=== PATIENT | female | born 1925 | race Caucasian/White ===

== ENCOUNTER 2016-10-12 18:01 | Inpatient (IN) | payer MEDICARE, BC ==
[~2016-10-12] VITALS: Ht 165.1 cm; Wt 61.2 kg
[~2016-10-12 18:01] MED LIST: ATEN-102 PO; CELE100; LISI-363 PO; SIMV20 PO; TAB-TAB PO
[2016-10-12 18:09] VITALS: BP 151/64; PULSE 75; RESP 16; TEMP 98.6; O2SAT 97
[2016-10-12] MEDS ORDERED: SIMV10TA PO (18:15)
[2016-10-12] MEDS ORDERED: LISI-515 PO (18:15)
[2016-10-12] MEDS ORDERED: ONDANSETRON HCL 4 MG/2 ML VIAL IV PUSH ONE (18:15)
[2016-10-12] MEDS ORDERED: ATEN50TA PO (18:15)
[2016-10-12] MEDS ORDERED: HYDR25TA5 PO (18:15)
[2016-10-12] MEDS ORDERED: MELO-1 PO (18:15)
[2016-10-12] MEDS ORDERED: MORPHINE SULFATE 4 MG/ML INJ IV PUSH ONE (18:15)
--- NOTE | 2016-10-12 18:21 | PD ---
HPI Chief Complaint: Pain: Acute or Chronic Time Seen by Provider: 18:11 Travel History International Travel<30 days: No Contact w/Intl Traveler<30days: No Traveled to known affect area: No History of Present Illness HPI The patient is a 89-year-old female who presents to the emergency department via EMS for back pain. The patient complains of mid to lower midline pain for the last 3 days that is worse at night, when she is lying supine, and when she initially stands upright. The pain gets slightly better throughout the day, however, is persistent. The pain does not radiate down the legs. She does complain of mild constipation last 2 days but denies any nausea , vomiting, or diarrhea. The patient denies any dysuria or difficulty urinating. She denies any history of compression fractures or recent trauma. She denies any dysuria, frequency, or urgency. Symptoms are mild to moderate, slightly worse with sitting down and lying down, and minimally improved with activity. The patient has not tried any [id number] pain medications prior to arrival. [facility] Past Medical History Arthritis: Yes High Cholesterol: Yes Diminished Hearing: No Hypertension: Yes Immunizations Current: No Tetanus Vaccination: > 5 Years Influenza Vaccination: No Past Surgical History Hysterectomy: Yes (1975) Social History Alcohol Use: No Tobacco Use: No Substance Use: No Allergies-Medications (Allergen,Severity, Reaction): Coded Allergies: Penicillin (Verified Allergy, Intermediate, Rash, 10/12/16) Reported Meds & Prescriptions Reported Meds & Active Scripts Active Reported Hydrochlorothiazide 25 Mg Tab 25 Mg PO DAILY Atenolol 50 Mg Tab 50 Mg PO DAILY Lisinopril 20 Mg Tab 20 Mg PO DAILY Meloxicam 15 Mg Tab 15 Mg PO DAILY Simvastatin 10 Mg Tab 10 Mg PO DAILY Review of Systems Except as stated in HPI: all other systems reviewed are Neg General / Constitutional: No: Fever Cardiovascular: No: Chest Pain or Discomfort Respiratory: No: Shortness of Breath Gastrointestinal: No: Nausea, Vomiting, Abdominal Pain Genitourinary: No: Dysuria, Incontinence Musculoskeletal: Positive: Pain Neurologic: No: Paresthesia, Sensory Disturbance Physical Exam Narrative GENERAL: Awake, alert, pleasant 89-year-old female who appears her stated age and is in no acute respiratory distress. SKIN: Focused skin assessment warm/dry. HEAD: Atraumatic. Normocephalic. EYES: No injection or drainage. ENT: No nasal bleeding or discharge. Mucous membranes pink and moist. NECK: Trachea midline. No JVD. CARDIOVASCULAR: Regular rate and rhythm. No murmur appreciated. RESPIRATORY: No accessory muscle use. Clear to auscultation. Breath sounds equal bilaterally. GASTROINTESTINAL: Abdomen soft, non-tender, nondistended. No rebound tenderness. No guarding or rigidity. Back: Mild tenderness in the lower thoracic and superior lumbar region. Mild kyphosis. No CVA tenderness. MUSCULOSKELETAL: No obvious deformities. No clubbing. No cyanosis. No edema. Positive dorsalis pedal pulses bilateral. Plantar flexion and dorsiflexion are 5 out of 5. Extension of knees and flexion of the hips bilaterals 4+5. NEUROLOGICAL: Awake and alert. No obvious cranial nerve deficits. Motor grossly within normal limits. Normal speech. Sensation is intact to the lower extremities to soft touch. PSYCHIATRIC: Appropriate mood and affect; insight and judgment normal. Data Data Last Documented VS Vital Signs Date Time Temp Pulse Resp B/P Pulse Ox O2 Delivery O2 Flow Rate FiO2 10/12/16 21:30 63 16 127/61 95 Room Air 10/12/16 18:09 98.6 Orders Complete Blood Count With Diff (10/12/16 18:11) Comprehensive Metabolic Panel (10/12/16 18:11) Urinalysis - C+S If Indicated (10/12/16 18:11) Morphine Inj (Morphine Inj) (10/12/16 18:15) Ondansetron Inj (Zofran Inj) (10/12/16 18:15) Ct Lumb Spine W/O Contrast (10/12/16 ) Ct Thor Spine W/O Contrast (10/12/16 ) TLSO (10/12/16 ) Sodium Chlor 0.9% 250 Ml Inj (Ns 250 Ml (10/12/16 20:15) Acetaminophen (Tylenol) (10/12/16 20:15) Brace Lso-Orthosis (10/12/16 ) Brace Thoracic Ext (10/12/16 ) Place In Observation (10/12/16 ) Vital Signs (Adult) Q4H (10/12/16 21:30) Activity Oob With Assistance (10/12/16 21:30) Diet Regular Basic (10/13/16 Breakfast) Sodium Chloride 0.9% Flush (Ns Flush) (10/12/16 21:30) Sodium Chloride 0.9% Flush (Ns Flush) (10/13/16 09:00) Comprehensive Metabolic Panel (10/13/16 06:00) Complete Blood Count With Diff (10/13/16 06:00) Pt Request For Service (10/12/16 21:30) Case Management Consult (10/12/16 21:30) Scd Bilateral/Knee High DAVE.BID (10/12/16 21:30) Cj Bilateral/Knee High DAVE.QSHIFT (10/12/16 21:30) Acetamin-Hydrocod 325-5 Mg ([place] 5-325 (10/12/16 22:00) Morphine Inj (Morphine Inj) (10/12/16 21:30) Docusate Sodium-Senna (Aylin-Colace) (10/13/16 09:00) Magnesium Hydroxide Liq (Milk Of Magnesi (10/12/16 21:30) Sennosides (Senokot) (10/12/16 21:30) Bisacodyl Supp (Dulcolax Supp) (10/12/16 21:30) Lactulose Liq (Lactulose Liq) (10/12/16 21:30) Atenolol (Tenormin) (10/13/16 09:00) Hydrochlorothiazide (Hydrodiuril) (10/13/16 09:00) Lisinopril (Prinivil) (10/13/16 09:00) Pravastatin (Pravachol) (10/13/16 09:00) Admit Order (Ed Use Only) (10/12/16 ) ^ Saline Lock (10/12/16 21:32) Resp Oxygen Navid C Titrat 1-4 L (10/12/16 ) Notify Dr: Other (10/12/16 21:32) Sodium Chloride 0.9% Flush (Ns Flush) (10/13/16 09:00) Sodium Chloride 0.9% Flush (Ns Flush) (10/12/16 21:45) Ondansetron Inj (Zofran Inj) (10/13/16 00:00) Acetaminophen (Tylenol) (10/13/16 02:00) Labs Laboratory Tests Test 10/12/16 10/12/16 19:00 19:37 White Blood Count 9.2 TH/MM3 Red Blood Count 4.33 MIL/MM3 Hemoglobin 12.1 GM/DL Hematocrit 36.0 % Mean Corpuscular Volume 83.2 FL Mean Corpuscular Hemoglobin 27.9 PG Mean Corpuscular Hemoglobin 33.5 % Concent Red Cell Distribution Width 14.4 % Platelet Count 273 TH/MM3 Mean Platelet Volume 8.0 FL Neutrophils (%) (Auto) 79.5 % Lymphocytes (%) (Auto) 11.8 % Monocytes (%) (Auto) 6.2 % Eosinophils (%) (Auto) 0.6 % Basophils (%) (Auto) 1.9 % Neutrophils # (Auto) 7.2 TH/MM3 Lymphocytes # (Auto) 1.1 TH/MM3 Monocytes # (Auto) 0.6 TH/MM3 Eosinophils # (Auto) 0.1 TH/MM3 Basophils # (Auto) 0.2 TH/MM3 CBC Comment DIFF FINAL Differential Comment Sodium Level 135 MEQ/L Potassium Level 4.5 MEQ/L Chloride Level 99 MEQ/L Carbon Dioxide Level 30.0 MEQ/L Anion Gap 6 MEQ/L Blood Urea Nitrogen 39 MG/DL Creatinine 0.86 MG/DL Estimat Glomerular Filtration 62 ML/MIN Rate Random Glucose 114 MG/DL Calcium Level 8.9 MG/DL Total Bilirubin 0.5 MG/DL Aspartate Amino Transf 28 U/L (AST/SGOT) Alanine Aminotransferase 23 U/L (ALT/SGPT) Alkaline Phosphatase 67 U/L Total Protein 7.0 GM/DL Albumin 3.1 GM/DL Urine Color YELLOW Urine Turbidity MOD Urine pH 6.0 Urine Specific [place] 1.017 Urine Protein NEG mg/dL Urine Glucose (UA) 250 mg/dL Urine Ketones TRACE mg/dL Urine Occult Blood NEG Urine Nitrite NEG Urine Bilirubin NEG Urine Leukocyte Esterase NEG Urine Squamous Epithelial > 8 /hpf Cells Urine Amorphous Sediment MOD Urine Bacteria FEW /hpf Urine Hyaline Casts 3-5 /lpf Urine Mucus FEW /lpf Microscopic Urinalysis Comment CULT NOT INDICATED MDM Medical Decision Making Medical Screen Exam Complete: Yes Emergency Medical Condition: Yes Medical Record Reviewed: Yes Differential Diagnosis Differential diagnosis includes compression fracture, spondylolisthesis, spinal stenosis, lumbar ago, UTI, atypical pancreatitis, constipation, metastatic disease. Narrative Course IV was established, labs are drawn and sent, and the patient was placed on telemetry monitoring and continuous pulse oximetry monitoring. The patient was administered morphine and Zofran for her symptoms. UA was sent to lab. Noncontrast CT of the thoracic and lumbar spine were ordered. The patient was signed out to the oncoming physician, Dr. Gonzalez, at 7 PM. If the patient has a compression fracture she may benefit from a TLSO brace. Diagnosis Primary Impression: Back pain Qualified Code: M54.6 - Acute midline thoracic back pain Additional Impression: T12 compression fracture Condition: Stable Rob Diggs MD Oct 12, 2016 18:20
[2016-10-12 19:00] VITALS: BP 141/82; PULSE 74; RESP 16; O2SAT 92
[2016-10-12 19:08] LABS: AUTOMATED NEUTROPHIL # 7.2 TH/MM3 (1.8-7.7); BASOPHIL # 0.2 TH/MM3 (0-0.2); BASOPHIL % 1.9 % (0.0-2.0); EOSINOPHIL # 0.1 TH/MM3 (0-0.4); EOSINOPHIL % 0.6 % (0.0-4.0); HEMO FLAGS DIFF FINAL; LYMPH % 11.8 % (9.0-44.0); LYMPHOCYTE # 1.1 TH/MM3 (1.0-4.8); MEAN CELL VOLUME 83.2 FL (80.0-100.0); MEAN CORPUSCULAR HEMOGLOBIN 27.9 PG (27.0-34.0); MEAN CORPUSCULAR HGB CONC 33.5 % (32.0-36.0); MONO % 6.2 % (0.0-8.0); NEUT % 79.5 % (16.0-70.0); PLATELET COUNT 273 TH/MM3 (150-450); RED BLOOD COUNT 4.33 MIL/MM3 (4.00-5.30); RED CELL DISTRIBUTION WIDTH 14.4 % (11.6-17.2); WHITE BLOOD COUNT 9.2 TH/MM3 (4.0-11.0)
--- NOTE | 2016-10-12 19:09 | PD ---
Physical Exam Date Seen by Provider: Oct 12, 2016 Time Seen by Provider: 19:06 Narrative Accepted in transfer of care from Dr. Diggs GENERAL: Elderly female in no acute distress SKIN: Warm and dry. HEAD: Normocephalic. EYES: No scleral icterus. No injection or drainage. NECK: Supple, trachea midline. No JVD or lymphadenopathy. CARDIOVASCULAR: Regular rate and rhythm without murmurs, gallops, or rubs. RESPIRATORY: Breath sounds equal bilaterally. No accessory muscle use. GASTROINTESTINAL: Abdomen soft, non-tender, nondistended. MUSCULOSKELETAL: No cyanosis, or edema. Radial and dorsalis pedis pulses 2++= BACK: Tender to palpation in the mid back without step off; without obvious deformity. Motor BUE/BLE = 5/5 and = 5/5, respectively No CVA tenderness. Data Data Last Documented VS Vital Signs Date Time Temp Pulse Resp B/P Pulse Ox O2 Delivery O2 Flow Rate FiO2 10/12/16 19:00 16 10/12/16 19:00 74 141/82 92 Room Air 10/12/16 18:09 98.6 Orders Complete Blood Count With Diff (10/12/16 18:11) Comprehensive Metabolic Panel (10/12/16 18:11) Urinalysis - C+S If Indicated (10/12/16 18:11) Morphine Inj (Morphine Inj) (10/12/16 18:15) Ondansetron Inj (Zofran Inj) (10/12/16 18:15) Ct Lumb Spine W/O Contrast (10/12/16 ) Ct Thor Spine W/O Contrast (10/12/16 ) TLSO (10/12/16 ) Sodium Chlor 0.9% 250 Ml Inj (Ns 250 Ml (10/12/16 20:15) Acetaminophen (Tylenol) (10/12/16 20:15) Brace Lso-Orthosis (10/12/16 ) Brace Thoracic Ext (10/12/16 ) Place In Observation (10/12/16 ) Vital Signs (Adult) Q4H (10/12/16 21:30) Activity Oob With Assistance (10/12/16 21:30) Diet Regular Basic (10/13/16 Breakfast) Sodium Chloride 0.9% Flush (Ns Flush) (10/12/16 21:30) Sodium Chloride 0.9% Flush (Ns Flush) (10/13/16 09:00) Comprehensive Metabolic Panel (10/13/16 06:00) Complete Blood Count With Diff (10/13/16 06:00) Pt Request For Service (10/12/16 21:30) Case Management Consult (10/12/16 21:30) Scd Bilateral/Knee High DAVE.BID (10/12/16 21:30) Cj Bilateral/Knee High DAVE.QSHIFT (10/12/16 21:30) Acetamin-Hydrocod 325-5 Mg ([place] 5-325 (10/12/16 22:00) Morphine Inj (Morphine Inj) (10/12/16 21:30) Docusate Sodium-Senna (Aylin-Colace) (10/13/16 09:00) Magnesium Hydroxide Liq (Milk Of Magnesi (10/12/16 21:30) Sennosides (Senokot) (10/12/16 21:30) Bisacodyl Supp (Dulcolax Supp) (10/12/16 21:30) Lactulose Liq (Lactulose Liq) (10/12/16 21:30) Atenolol (Tenormin) (10/13/16 09:00) Hydrochlorothiazide (Hydrodiuril) (10/13/16 09:00) Lisinopril (Prinivil) (10/13/16 09:00) Pravastatin (Pravachol) (10/13/16 09:00) Admit Order (Ed Use Only) (10/12/16 ) ^ Saline Lock (10/12/16 21:32) Resp Oxygen Navid C Titrat 1-4 L (10/12/16 ) Notify Dr: Other (10/12/16 21:32) Sodium Chloride 0.9% Flush (Ns Flush) (10/13/16 09:00) Sodium Chloride 0.9% Flush (Ns Flush) (10/12/16 21:45) Ondansetron Inj (Zofran Inj) (10/13/16 00:00) Acetaminophen (Tylenol) (10/13/16 02:00) Labs Laboratory Tests Test 10/12/16 10/12/16 19:00 19:37 White Blood Count 9.2 TH/MM3 Red Blood Count 4.33 MIL/MM3 Hemoglobin 12.1 GM/DL Hematocrit 36.0 % Mean Corpuscular Volume 83.2 FL Mean Corpuscular Hemoglobin 27.9 PG Mean Corpuscular Hemoglobin 33.5 % Concent Red Cell Distribution Width 14.4 % Platelet Count 273 TH/MM3 Mean Platelet Volume 8.0 FL Neutrophils (%) (Auto) 79.5 % Lymphocytes (%) (Auto) 11.8 % Monocytes (%) (Auto) 6.2 % Eosinophils (%) (Auto) 0.6 % Basophils (%) (Auto) 1.9 % Neutrophils # (Auto) 7.2 TH/MM3 Lymphocytes # (Auto) 1.1 TH/MM3 Monocytes # (Auto) 0.6 TH/MM3 Eosinophils # (Auto) 0.1 TH/MM3 Basophils # (Auto) 0.2 TH/MM3 CBC Comment DIFF FINAL Differential Comment Sodium Level 135 MEQ/L Potassium Level 4.5 MEQ/L Chloride Level 99 MEQ/L Carbon Dioxide Level 30.0 MEQ/L Anion Gap 6 MEQ/L Blood Urea Nitrogen 39 MG/DL Creatinine 0.86 MG/DL Estimat Glomerular Filtration 62 ML/MIN Rate Random Glucose 114 MG/DL Calcium Level 8.9 MG/DL Total Bilirubin 0.5 MG/DL Aspartate Amino Transf 28 U/L (AST/SGOT) Alanine Aminotransferase 23 U/L (ALT/SGPT) Alkaline Phosphatase 67 U/L Total Protein 7.0 GM/DL Albumin 3.1 GM/DL Urine Color YELLOW Urine Turbidity MOD Urine pH 6.0 Urine Specific [facility] 1.017 Urine Protein NEG mg/dL Urine Glucose (UA) 250 mg/dL Urine Ketones TRACE mg/dL Urine Occult Blood NEG Urine Nitrite NEG Urine Bilirubin NEG Urine Leukocyte Esterase NEG Urine Squamous Epithelial > 8 /hpf Cells Urine Amorphous Sediment MOD Urine Bacteria FEW /hpf Urine Hyaline Casts 3-5 /lpf Urine Mucus FEW /lpf Microscopic Urinalysis Comment CULT NOT INDICATED MDM Medical Record Reviewed: Yes Supervised Visit with RACHEL: No Interpretation(s) CBC & BMP Diagram 10/12/16 19:00 Last Impressions Thoracic Spine CT 10/12/16 0000 Signed Impressions: Service Date/Time: Wednesday, October 12, 2016 18:17 - CONCLUSION: 1. Compression fracture through superior aspect of T12 without significant loss of vertebral body height. Fracture is probably subacute with some resorption at the fracture line. Prominent osteophyte at this level posteriorly results in a mild to moderate AP canal stenosis. No other fractures. Nicholas Yañez MD Lumbar Spine CT 10/12/16 0000 Signed Impressions: Service Date/Time: Wednesday, October 12, 2016 18:17 - CONCLUSION: 1. T12 fracture. See thoracic spine CT report. No lumbar spine fracture. 2. 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 Nicholas Yañez MD Vital Signs Date Time Temp Pulse Resp B/P Pulse Ox O2 Delivery O2 Flow Rate FiO2 10/12/16 19:00 16 10/12/16 19:00 74 16 141/82 92 Room Air 10/12/16 18:50 16 10/12/16 18:15 10/12/16 18:09 98.6 75 16 151/64 97 Room Air UA: contaminated specimen; cx not indicated Differential Diagnosis Accepted in transfer of care from Dr. Diggs please refer to his dictation Narrative Course Accepted in transfer of care from Dr. Diggs for follow-up of pending labs, imaging study, and patient disposition No relief of pain after morphine sulfate some decrease in O2 saturation on room air GCS 15 Patient given acetaminophen and TLSO brace ordered TLSO device placed on patient patient complains symptoms are not improved and does not like the brace and wants to have removed Case discussed with on-call medicine for admission for intractable pain without neurologic deficit; NS call placed as well re: possible candidate for kyphoplasty Patient is aware of plan for admission and is in agreement; aware plan to transfer to [facility] for NS consult re: possible kyphoplasty [facility] aware of NS rec to [facility] Physician Communication Physician Communication discussed with Dr Wilson--obs for intractable pain; subacute T12 compression fracture; NS Dr Burk [facility] ?kyphoplasty Diagnosis Primary Impression: Intractable back pain Additional Impression: T12 compression fracture Admitting Information Admitting Physician Requests: Observation Condition: Stable Shreya Gonzalez MD Oct 12, 2016 19:09
--- NOTE | 2016-10-12 19:11 | RADRPT ---
EXAM DATE/TIME: 10/12/2016 18:17 [facility] COMPARISON: No previous studies available for comparison. INDICATIONS : Back pain. No known injury. RADIATION DOSE: 22.80 CTDIvol (mGy) ; Combined studies - Thoracic Spine/Lumbar Spine MEDICAL HISTORY : Hypertension. Hypercholesterolemia. SURGICAL HISTORY : Hysterectomy. ENCOUNTER: Initial ACUITY: 3 days PAIN SCALE: 5/10 LOCATION: spine TECHNIQUE: Volumetric scanning of the thoracic spine was performed. Multiplanar reconstructions in the sagittal , coronal and oblique axial planes were performed. Using automated exposure control and adjustment o f the mA and/or kV according to patient size, radiation dose was kept as low as reasonably achievable to obtain optimal diagnostic quality images. DICOM format image data is available electronically f or review and comparison. FINDINGS: There is a fracture through superior aspect of T12 which is probably subacute with some resorption at the fracture line. There is a prominent osteophyte posteriorly at this level with a mild to moderate AP canal stenosis. No canal stenosis the remainder of the thoracic spine. Moderate degenerative valdivia ge throughout. No other thoracic spine fractures identified. Bones are osteopenic. CONCLUSION: 1. Compression fracture through superior aspect of T12 without significant loss of vertebral body hei ght. Fracture is probably subacute with some resorption at the fracture line. Prominent osteophyte at this level posteriorly results in a mild to moderate AP canal stenosis. No other fractures. Nicholas Yañez MD on October 12, 2016 at 19:05 Board Certified Radiologist. This report was verified electronically.
--- NOTE | 2016-10-12 19:13 | RADRPT ---
EXAM DATE/TIME: 10/12/2016 18:17 [facility] COMPARISON: No previous studies available for comparison. INDICATIONS : Back pain. No known injury. RADIATION DOSE: 22.80 CTDIvol (mGy) ; Combined studies - Thoracic Spine/Lumbar Spine MEDICAL HISTORY : Hypercholesterolemia. Hypertension. SURGICAL HISTORY : Hysterectomy. ENCOUNTER: Initial ACUITY: 3 days PAIN SCALE: 5/10 LOCATION: spine TECHNIQUE: Volumetric scanning of the lumbar spine was performed. Multiplanar reconstructions in the sagittal, coronal and oblique axial planes were performed. Using automated exposure control and adjustment of the mA and/or kV according to patient size, radiation dose was kept as low as reasonably achievable t o obtain optimal diagnostic quality images. DICOM format image data is available electronically for review and comparison. FINDINGS: No acute fracture the lumbar spine. There is a T12 fracture. See thoracic spine CT report. 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 Degenerati ve changes result in a moderate central stenosis at L4-5 and mild central canal stenosis at L3-4. Bon es are osteopenic. CONCLUSION: 1. T12 fracture. See thoracic spine CT report. No lumbar spine fracture. 2. 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 Mild to moderate joaquina tral canal stenosis in the lower lumbar spine as above. Nicholas Yañez MD on October 12, 2016 at 19:09 Board Certified Radiologist. This report was verified electronically.
[2016-10-12 19:17] LABS: CHLORIDE 99 MEQ/L (98-107); POTASSIUM 4.5 MEQ/L (3.5-5.1); SODIUM (NA) 135 MEQ/L (136-145)
[2016-10-12 19:20] LABS: ANION GAP 6 MEQ/L (5-15); BLOOD UREA NITROGEN 39 MG/DL (7-18)
[2016-10-12 19:23] LABS: ALT (GPT) 23 U/L (10-53); AST (GOT) 28 U/L (15-37); GLOMERULAR FILTRATION RATE 62 ML/MIN (>89)
[2016-10-12 19:25] LABS: TOTAL BILIRUBIN ADULT 0.5 MG/DL (0.2-1.0)
[2016-10-12 19:26] LABS: ALKALINE PHOSPHATASE 67 U/L (45-117)
[2016-10-12 19:46] LABS: BLOOD, URINE NEG (NEG); GLUCOSE,URINE 250 mg/dL (NEG); KETONE, URINE TRACE mg/dL (NEG); NITRITE,URINE NEG (NEG)
[2016-10-12 19:53] LABS: SQUAMOUS EPITHELIAL CELL URINE > 8 /hpf (0-5); URINE COLOR YELLOW (YELLW/STRAW)
[2016-10-12 19:54] LABS: BACTERIA, URINE FEW /hpf; MUCUS URINE FEW /lpf (OCC)
[2016-10-12 19:55] LABS: COMMENT (UR) CULT NOT INDICATED; CULTURE IF INDICATED CULT NOT INDICATED
[2016-10-12] MEDS ORDERED: ACETAMINOPHEN 500 MG CPLT PO ONE (20:15)
[2016-10-12] MEDS ORDERED: SODIUM CHLOR 0.9% 250 ML INJ 250 ML IV ONE (20:15)
[2016-10-12 21:30] VITALS: BP 127/61; PULSE 63; RESP 16; O2SAT 95
[2016-10-12] MEDS ORDERED: SODIUM CHLORIDE 0.9% FLUSH 10 ML FLUSH IV FLUSH PRN (21:30)
[2016-10-12] MEDS ORDERED: MORPHINE SULFATE 4 MG/ML INJ IV PRN (21:30)
[2016-10-12] MEDS ORDERED: SENNOSIDES 8.6 MG TAB PO PRN (21:30)
[2016-10-12] MEDS ORDERED: BISACODYL 10 MG SUPP RECTAL PRN (21:30)
[2016-10-12] MEDS ORDERED: LACTULOSE SYRUP 20 GM/30 ML CUP PO PRN (21:30)
[2016-10-12] MEDS ORDERED: MAGNESIUM HYDROXIDE SUSP 30 ML CUP PO PRN (21:30)
[2016-10-12] MEDS ORDERED: SODIUM CHLORIDE 0.9% FLUSH 10 ML FLUSH IVF PRN (21:45)
[2016-10-12] MEDS ORDERED: ACETAMINOPHEN/HYDROcodone 325 MG/5 MG TAB PO PRN (22:00)
[2016-10-12 22:18] VITALS: O2SAT 92
[2016-10-12 23:00] VITALS: BP 131/62; PULSE 62; RESP 16; O2SAT 97
[2016-10-13] VITALS (7 sets, daily range): BP systolic 117–152; BP diastolic 56–67; PULSE 58–71; RESP 16–23; TEMP 97.5–98.6; O2SAT 91–96
[2016-10-13] MEDS ORDERED: ONDANSETRON HCL 4 MG/2 ML VIAL IVP PRN
[2016-10-13] MEDS ORDERED: ACETAMINOPHEN 325 MG TAB PO PRN (02:00)
--- NOTE | 2016-10-13 04:18 | HHI.HP ---
[facility] Service [facility] Primary Care Physician Unknown Admission Diagnosis intractable pain; T12 subacute compression fx Diagnoses: Chief Complaint: back pain Travel History International Travel<30 Days: No Contact w/Intl Traveler <30 Da: No Traveled to Known Affected Are: No History of Present Illness 89 y/o female with a history of HTN, HLD and arthritis presented to the ED with complaints of back pain for the last 3 days. She states the pain is throbbing, 7 /10, in the middle of her back, worse when laying in bed or turning in bed. She states during the day when she walks the pain does ease up. Today she states the pain made it difficult to walk. No associated numbness in her lower extremities. She denies any trauma, or fall. She does take swing classes 3 days a week, but doesn't remember twisting wrong. She denies any chest pain, sob, fever, chills, rash, headaches or dizziness. Review of Systems Except as stated in HPI: all other systems reviewed are Neg Past Family Social History Past Medical History HTN HLD Arthritis Past Surgical History Hysterectomy Reported Medications Reported Meds & Active Scripts Active Reported Hydrochlorothiazide 25 Mg Tab 25 Mg PO DAILY Atenolol 50 Mg Tab 50 Mg PO DAILY Lisinopril 20 Mg Tab 20 Mg PO DAILY Meloxicam 15 Mg Tab 15 Mg PO DAILY Simvastatin 10 Mg Tab 10 Mg PO DAILY Allergies: Coded Allergies: Penicillin (Verified Allergy, Intermediate, Rash, 10/12/16) Active Ordered Medications Current Medications Medications (Trade) Dose Ordered Sig/Redd Route Start Time Stop Time Status Last Admin (NS Flush) 2 ml UNSCH PRN IV FLUSH 10/12/16 21:30 (NS Flush) 2 ml BID IV FLUSH 10/13/16 09:00 (Zofran Inj) 4 mg Q6H PRN IVP 10/13/16 00:00 (Tylenol) 650 mg Q6H PRN PO 10/13/16 02:00 ([place] 5-325 Mg) 1 tab Q4H PRN PO 10/12/16 22:00 (Morphine Inj) 2 mg Q3H PRN IV 10/12/16 21:30 (Aylin-Colace) 1 tab BID PO 10/13/16 09:00 (Milk Of Magnesia Liq) 30 ml Q12H PRN PO 10/12/16 21:30 (Senokot) 17.2 mg Q12H PRN PO 10/12/16 21:30 (Dulcolax Supp) 10 mg DAILY PRN RECTAL 10/12/16 21:30 (Lactulose Liq) 30 ml DAILY PRN PO 10/12/16 21:30 (Tenormin) 50 mg DAILY PO 10/13/16 09:00 (Hydrodiuril) 25 mg DAILY PO 10/13/16 09:00 (Prinivil) 20 mg DAILY PO 10/13/16 09:00 (Pravachol) 20 mg DAILY PO 10/13/16 09:00 Family History Patient denies any family history of heart disease or cancer. Social History Patient denies any tobacco, alcohol or illicit drug use. Physical Exam Vital Signs Vital Signs Date Time Temp Pulse Resp B/P Pulse Ox O2 Delivery O2 Flow Rate FiO2 10/13/16 02:45 97.5 71 18 145/67 93 10/13/16 01:57 60 16 117/60 95 Room Air 10/13/16 00:30 60 16 119/57 95 Room Air 10/12/16 23:00 62 16 131/62 97 Room Air 10/12/16 22:18 92 21 10/12/16 21:39 16 10/12/16 21:30 63 16 127/61 95 Room Air 10/12/16 19:00 16 10/12/16 19:00 74 16 141/82 92 Room Air 10/12/16 18:50 16 10/12/16 18:15 10/12/16 18:09 98.6 75 16 151/64 97 Room Air Physical Exam GENERAL: This is a well-nourished, pleasant lady in [facility]. SKIN: No rashes, ecchymoses or lesions. Cool and dry. HEAD: Atraumatic. Normocephalic. EYES: Pupils equal round and reactive. Extraocular motions intact. ENT: Nose without bleeding, purulent drainage or septal hematoma Airway patent. NECK: Trachea midline. No JVD or lymphadenopathy. CARDIOVASCULAR: Regular rate and rhythm without murmurs, gallops, or rubs. RESPIRATORY: Clear to auscultation. Breath sounds equal bilaterally. No wheezes , rales, or rhonchi. GASTROINTESTINAL: Abdomen soft, non-tender, nondistended. No hepato-splenomegaly , or palpable masses. No guarding. MUSCULOSKELETAL: Extremities without clubbing, cyanosis, or edema. No joint tenderness, effusion, or edema noted. No calf tenderness. NEUROLOGICAL: Awake and alert. Motor and sensory grossly within normal limits. Normal speech. Laboratory Laboratory Tests Test 10/12/16 10/12/16 19:00 19:37 White Blood Count 9.2 Red Blood Count 4.33 Hemoglobin 12.1 Hematocrit 36.0 Mean Corpuscular Volume 83.2 Mean Corpuscular Hemoglobin 27.9 Mean Corpuscular Hemoglobin 33.5 Concent Red Cell Distribution Width 14.4 Platelet Count 273 Mean Platelet Volume 8.0 Neutrophils (%) (Auto) 79.5 Lymphocytes (%) (Auto) 11.8 Monocytes (%) (Auto) 6.2 Eosinophils (%) (Auto) 0.6 Basophils (%) (Auto) 1.9 Neutrophils # (Auto) 7.2 Lymphocytes # (Auto) 1.1 Monocytes # (Auto) 0.6 Eosinophils # (Auto) 0.1 Basophils # (Auto) 0.2 CBC Comment DIFF FINAL Differential Comment Sodium Level 135 Potassium Level 4.5 Chloride Level 99 Carbon Dioxide Level 30.0 Anion Gap 6 Blood Urea Nitrogen 39 Creatinine 0.86 Estimat Glomerular Filtration 62 Rate Random Glucose 114 Calcium Level 8.9 Total Bilirubin 0.5 Aspartate Amino Transf 28 (AST/SGOT) Alanine Aminotransferase 23 (ALT/SGPT) Alkaline Phosphatase 67 Total Protein 7.0 Albumin 3.1 Urine Color YELLOW Urine Turbidity MOD Urine pH 6.0 Urine Specific [place] 1.017 Urine Protein NEG Urine Glucose (UA) 250 Urine Ketones TRACE Urine Occult Blood NEG Urine Nitrite NEG Urine Bilirubin NEG Urine Leukocyte Esterase NEG Urine Squamous Epithelial > 8 Cells Urine Amorphous Sediment MOD Urine Bacteria FEW Urine Hyaline Casts 3-5 Urine Mucus FEW Microscopic Urinalysis Comment CULT NOT INDICATED Result Diagram: 10/12/16189910/12/161899 Imaging Last Impressions Thoracic Spine CT 10/12/16 0000 Signed Impressions: Service Date/Time: Wednesday, October 12, 2016 18:17 - CONCLUSION: 1. Compression fracture through superior aspect of T12 without significant loss of vertebral body height. Fracture is probably subacute with some resorption at the fracture line. Prominent osteophyte at this level posteriorly results in a mild to moderate AP canal stenosis. No other fractures. Nicholas Yañez MD Lumbar Spine CT 10/12/16 0000 Signed Impressions: Service Date/Time: Wednesday, October 12, 2016 18:17 - CONCLUSION: 1. T12 fracture. See thoracic spine CT report. No lumbar spine fracture. 2. 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 Nicholas Yañez MD Assessment and Plan Problem List: (1) T12 compression fracture ICD Code: S22.080A Status: Acute (2) Intractable back pain ICD Code: M54.9 Status: Acute Assessment and Plan 89 y/o female with a history of HTN, HLD and arthritis presented to the ED with complaints of back pain for the last 3 days. T12 compression fracture with Intractable back pain Thoracic spine CT reviewed and shows Compression fracture through superior aspect of T12 without significant loss of vertebral body height. Fracture is probably subacute with some resorption at the fracture line. Prominent osteophyte at this level posteriorly results in a mild to moderate AP canal stenosis. No other fractures. -Consult neuro surgery, Dr Burk aware, possible Kyphoplasty -TLSO brace when out of bed or sitting up -Pain management with IV morphine and PO Wainwright HTN, chronic -Resume home medications DVT prophylaxis: SCDs Discussed Condition With Patient, and Beatrice Jack Oct 13, 2016 04:18
[2016-10-13] MEDS: SODIUM CHLORIDE 0.9% FLUSH 10 ML FLUSH IV FLUSH SCH ×2 (09:00→21:00)
[2016-10-13] MEDS ORDERED: SODIUM CHLORIDE 0.9% FLUSH 10 ML FLUSH IV FLUSH SCH (09:00)
[2016-10-13] MEDS: PRAVASTATIN SOD 20 MG TAB PO SCH (09:50)
[2016-10-13] MEDS: LISINOPRIL 20 MG TAB PO SCH (09:50)
[2016-10-13] MEDS: DOCUSATE SODIUM 50 MG/SENNA 8.6 MG TAB PO SCH ×2 (09:50→21:00)
[2016-10-13] MEDS: ATENOLOL 50 MG TAB PO SCH (09:50)
[2016-10-13] MEDS: HYDROCHLOROTHIAZIDE 25 MG TAB PO SCH (09:50)
[2016-10-13 10:37] LABS: AUTOMATED NEUTROPHIL # 6.2 TH/MM3 (1.8-7.7); BASOPHIL % 0.3 % (0.0-2.0); EOSINOPHIL # 0.1 TH/MM3 (0-0.4); EOSINOPHIL % 0.8 % (0.0-4.0); HEMATOCRIT 38.3 % (35.0-46.0); HEMO FLAGS DIFF FINAL; LYMPH % 21.2 % (9.0-44.0); LYMPHOCYTE # 1.9 TH/MM3 (1.0-4.8); MEAN CELL VOLUME 82.8 FL (80.0-100.0); MEAN CORPUSCULAR HEMOGLOBIN 28.4 PG (27.0-34.0); MEAN CORPUSCULAR HGB CONC 34.3 % (32.0-36.0); NEUT % 69.7 % (16.0-70.0); PLATELET COUNT 323 TH/MM3 (150-450); RED BLOOD COUNT 4.62 MIL/MM3 (4.00-5.30); RED CELL DISTRIBUTION WIDTH 14.8 % (11.6-17.2); WHITE BLOOD COUNT 8.9 TH/MM3 (4.0-11.0)
[2016-10-13 10:44] LABS: ALT (GPT) 24 U/L (10-53); ANION GAP 8 MEQ/L (5-15); AST (GOT) 20 U/L (15-37); BICARBONATE 29.8 MEQ/L (21.0-32.0); BLOOD UREA NITROGEN 33 MG/DL (7-18); CHLORIDE 97 MEQ/L (98-107); GLOMERULAR FILTRATION RATE 62 ML/MIN (>89); POTASSIUM 4.5 MEQ/L (3.5-5.1); SODIUM (NA) 135 MEQ/L (136-145)
[2016-10-13 10:46] LABS: ALKALINE PHOSPHATASE 78 U/L (45-117); TOTAL BILIRUBIN ADULT 0.6 MG/DL (0.2-1.0)
[2016-10-13] MEDS ORDERED: VANCOMYCIN INJ 1,000 MG in SODIUM CHLOR 0.9% 250 ML INJ 250 ML IV SCH (11:45)
--- NOTE | 2016-10-13 13:03 | PD.CONS ---
[facility] Service Neurosurgery Consult Requested By [facility] Reason for Consult T12 fracture Primary Care Physician Unknown History of Present Illness This is a 89 year old female with a history of HTN, hyperlipidemia and arthritis presented to the [place] emergency room with complaints of intractable back pain. She states that her pain is throbbing, 8-9/10, in the middle of her back, worse when laying in bed or turning in bed. She states during the day her pain gets worse and unbearable. Today she states the pain made it difficult to walk. No associated numbness in her lower extremities. She denies any trauma, or fall. She does take swing classes 3 days a week, but doesn 't remember twisting wrong. She denies any chest pain, sob, fever, chills, rash , headaches or dizziness. She denies incontinence of stool or urine the brain show a compression fracture at T12. Neurosurgical consultation was requested Physical Exam Physical Exam Vital Signs Vital Signs Date Time Temp Pulse Resp B/P Pulse Ox O2 Delivery O2 Flow Rate FiO2 10/13/16 02:45 97.5 71 18 145/67 93 10/13/16 01:57 60 16 117/60 95 Room Air 10/13/16 00:30 60 16 119/57 95 Room Air 10/12/16 23:00 62 16 131/62 97 Room Air 10/12/16 22:18 92 21 10/12/16 21:39 16 10/12/16 21:30 63 16 127/61 95 Room Air 10/12/16 19:00 16 10/12/16 19:00 74 16 141/82 92 Room Air 10/12/16 18:50 16 10/12/16 18:15 10/12/16 18:09 98.6 75 16 151/64 97 Room Air Physical Exam GENERAL: This is a well-nourished, pleasant lady in [facility]. SKIN: No rashes, ecchymoses or lesions. Cool and dry. HEAD: Atraumatic. Normocephalic. EYES: Pupils equal round and reactive. Extraocular motions intact. ENT: Nose without bleeding, purulent drainage or septal hematoma Airway patent. NECK: Trachea midline. No JVD or lymphadenopathy. CARDIOVASCULAR: Regular rate and rhythm without murmurs, gallops, or rubs. RESPIRATORY: Clear to auscultation. Breath sounds equal bilaterally. No wheezes , rales, or rhonchi. GASTROINTESTINAL: Abdomen soft, non-tender, nondistended. No hepato-splenomegaly , or palpable masses. No guarding. MUSCULOSKELETAL: Extremities without clubbing, cyanosis, or edema. No joint tenderness, effusion, or edema noted. No calf tenderness. NEUROLOGICAL: Awake and alert. Motor and sensory grossly within normal limits. Normal speech. Laboratory Laboratory Tests Test 10/12/16 10/12/16 19:00 19:37 White Blood Count 9.2 Red Blood Count 4.33 Hemoglobin 12.1 Hematocrit 36.0 Mean Corpuscular Volume 83.2 Mean Corpuscular Hemoglobin 27.9 Mean Corpuscular Hemoglobin 33.5 Concent Red Cell Distribution Width 14.4 Platelet Count 273 Mean Platelet Volume 8.0 Neutrophils (%) (Auto) 79.5 Lymphocytes (%) (Auto) 11.8 Monocytes (%) (Auto) 6.2 Eosinophils (%) (Auto) 0.6 Basophils (%) (Auto) 1.9 Neutrophils # (Auto) 7.2 Lymphocytes # (Auto) 1.1 Monocytes # (Auto) 0.6 Eosinophils # (Auto) 0.1 Basophils # (Auto) 0.2 CBC Comment DIFF FINAL Differential Comment Sodium Level 135 Potassium Level 4.5 Chloride Level 99 Carbon Dioxide Level 30.0 Anion Gap 6 Blood Urea Nitrogen 39 Creatinine 0.86 Estimat Glomerular Filtration 62 Rate Random Glucose 114 Calcium Level 8.9 Total Bilirubin 0.5 Aspartate Amino Transf 28 (AST/SGOT) Alanine Aminotransferase 23 (ALT/SGPT) Alkaline Phosphatase 67 Total Protein 7.0 Albumin 3.1 Urine Color YELLOW Urine Turbidity MOD Urine pH 6.0 Urine Specific [place] 1.017 Urine Protein NEG Urine Glucose (UA) 250 Urine Ketones TRACE Urine Occult Blood NEG Urine Nitrite NEG Urine Bilirubin NEG Urine Leukocyte Esterase NEG Urine Squamous Epithelial > 8 Cells Urine Amorphous Sediment MOD Urine Bacteria FEW Urine Hyaline Casts 3-5 Urine Mucus FEW Microscopic Urinalysis Comment CULT NOT INDICATED Result Diagram: 10/12/16 19010/12/16 190 Imaging Last Impressions Thoracic Spine CT 10/12/16 0000 Signed Impressions: Service Date/Time: Wednesday, October 12, 2016 18:17 - CONCLUSION: 1. Compression fracture through superior aspect of T12 without significant loss of vertebral body height. Fracture is probably subacute with some resorption at the fracture line. Prominent osteophyte at this level posteriorly results in a mild to moderate AP canal stenosis. No other fractures. Nicholas Yañez MD Lumbar Spine CT 10/12/16 0000 Signed Impressions: Service Date/Time: Wednesday, October 12, 2016 18:17 - CONCLUSION: 1. T12 fracture. See thoracic spine CT report. No lumbar spine fracture. 2. 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 Nicholas Yañez MD Septic Shock Reassessment Septic Shock Reassessment Assessment and Plan Assessment and Plan Problem List: (1) T12 compression fracture ICD Code: S22.080A Status: Acute (2) Intractable back pain ICD Code: M54.9 Status: Acute Review of Systems Constitutional: DENIES: Diaphoretic episodes, Fatigue, Fever, Weight gain, Weight loss, Chills, Dizziness, Change in appetite, Night Sweats Endocrine: DENIES: Abnorml menstrual pattern, Heat/cold intolerance, Polydipsia , Polyuria, Polyphagia Eyes: DENIES: Blurred vision, Diplopia, Eye inflammation, Eye pain, Vision loss , Photosensitivity, Double Vision Ears, nose, mouth, throat: DENIES: Tinnitus, Hearing loss, Vertigo, Nasal discharge, Oral lesions, Throat pain, Hoarseness, Ear Pain, Running Nose, Epistaxis, Sinus Pain, Toothache, Odynophagia Respiratory: DENIES: Apneas, Cough, Snoring, Wheezing, Hemoptysis, Sputum production, Shortness of breath Cardiovascular: DENIES: Chest pain, Palpitations, Syncope, Dyspnea on Exertion , PND, Lower Extremity Edema, Orthopnea, Claudication Gastrointestinal: DENIES: Abdominal pain, Black stools, Bloody stools, Constipation, Diarrhea, Nausea, Vomiting, Difficulty Swallowing, Anorexia Genitourinary: DENIES: Abnormal vaginal bleeding, Dysmenorrhea, Dyspareunia, Sexual dysfunction, Urinary frequency, Urinary incontinence, Urgency, Hematuria , Dysuria, Nocturia, Vaginal discharge Musculoskeletal: COMPLAINS OF: Back pain, DENIES: Joint pain, Muscle aches, Stiffness, Joint Swelling, Neck pain Integumentary: DENIES: Abnormal pigmentation, Pruritus, Rash, Nail changes, Breast masses, Breast skin changes, Nipple discharge Hematologic/lymphatic: DENIES: Bruising, Lymphadenopathy Immunologic/allergic: DENIES: Eczema, Urticaria Neurologic: COMPLAINS OF: Abnormal gait, DENIES: Headache, Localized weakness , Paresthesias, Seizures, Speech Problems, Tremor, Poor Balance Psychiatric: DENIES: Anxiety, Confusion, Mood changes, Depression, Hallucinations, Agitation, Suicidal Ideation, Homicidal Ideation, Delusions Past Family Social History Allergies: Coded Allergies: Penicillin (Verified Allergy, Intermediate, Rash, 10/12/16) Past Medical History HTN HLD Arthritis Hysterectomy Reported Medications Reported Meds & Active Scripts Active Reported Hydrochlorothiazide 25 Mg Tab 25 Mg PO DAILY Atenolol 50 Mg Tab 50 Mg PO DAILY Lisinopril 20 Mg Tab 20 Mg PO DAILY Meloxicam 15 Mg Tab 15 Mg PO DAILY Simvastatin 10 Mg Tab 10 Mg PO DAILY Allergies: Coded Allergies: Penicillin (Verified Allergy, Intermediate, Rash, 10/12/16) Active Ordered Medications Current Medications Medications (Trade) Dose Ordered Sig/Redd Route Start Time Stop Time Status Last Admin (NS Flush) 2 ml UNSCH PRN IV FLUSH 10/12/16 21:30 (NS Flush) 2 ml BID IV FLUSH 10/13/16 09:00 (Zofran Inj) 4 mg Q6H PRN IVP 10/13/16 00:00 (Tylenol) 650 mg Q6H PRN PO 10/13/16 02:00 ([place] 5-325 Mg) 1 tab Q4H PRN PO 10/12/16 22:00 (Morphine Inj) 2 mg Q3H PRN IV 10/12/16 21:30 (Aylin-Colace) 1 tab BID PO 10/13/16 09:00 (Milk Of Magnesia Liq) 30 ml Q12H PRN PO 10/12/16 21:30 (Senokot) 17.2 mg Q12H PRN PO 10/12/16 21:30 (Dulcolax Supp) 10 mg DAILY PRN RECTAL 10/12/16 21:30 (Lactulose Liq) 30 ml DAILY PRN PO 10/12/16 21:30 (Tenormin) 50 mg DAILY PO 10/13/16 09:00 (Hydrodiuril) 25 mg DAILY PO 10/13/16 09:00 (Prinivil) 20 mg DAILY PO 10/13/16 09:00 (Pravachol) 20 mg DAILY PO 10/13/16 09:00 Family History Patient denies any family history of heart disease or cancer. Social History Patient denies any tobacco, alcohol or illicit drug use. Physical Exam Vital Signs Vital Signs Date Time Temp Pulse Resp B/P Pulse Ox O2 Delivery O2 Flow Rate FiO2 10/13/16 11:05 98.5 66 18 126/56 91 10/13/16 07:21 97.9 58 20 152/63 95 10/13/16 02:45 97.5 71 18 145/67 93 10/13/16 01:57 60 16 117/60 95 Room Air 10/13/16 00:30 60 16 119/57 95 Room Air 10/12/16 23:00 62 16 131/62 97 Room Air 10/12/16 22:18 92 21 10/12/16 21:39 16 10/12/16 21:30 63 16 127/61 95 Room Air 10/12/16 19:00 16 10/12/16 19:00 74 16 141/82 92 Room Air 10/12/16 18:50 16 10/12/16 18:15 10/12/16 18:09 98.6 75 16 151/64 97 Room Air Laboratory Laboratory Tests Test 10/12/16 10/12/16 10/13/16 19:00 19:37 09:41 White Blood Count 9.2 8.9 Red Blood Count 4.33 4.62 Hemoglobin 12.1 13.1 Hematocrit 36.0 38.3 Mean Corpuscular Volume 83.2 82.8 Mean Corpuscular Hemoglobin 27.9 28.4 Mean Corpuscular Hemoglobin 33.5 34.3 Concent Red Cell Distribution Width 14.4 14.8 Platelet Count 273 323 Mean Platelet Volume 8.0 8.2 Neutrophils (%) (Auto) 79.5 69.7 Lymphocytes (%) (Auto) 11.8 21.2 Monocytes (%) (Auto) 6.2 8.0 Eosinophils (%) (Auto) 0.6 0.8 Basophils (%) (Auto) 1.9 0.3 Neutrophils # (Auto) 7.2 6.2 Lymphocytes # (Auto) 1.1 1.9 Monocytes # (Auto) 0.6 0.7 Eosinophils # (Auto) 0.1 0.1 Basophils # (Auto) 0.2 0.0 CBC Comment DIFF FINAL DIFF FINAL Differential Comment Sodium Level 135 135 Potassium Level 4.5 4.5 Chloride Level 99 97 Carbon Dioxide Level 30.0 29.8 Anion Gap 6 8 Blood Urea Nitrogen 39 33 Creatinine 0.86 0.86 Estimat Glomerular Filtration 62 62 Rate Random Glucose 114 124 Calcium Level 8.9 9.5 Total Bilirubin 0.5 0.6 Aspartate Amino Transf 28 20 (AST/SGOT) Alanine Aminotransferase 23 24 (ALT/SGPT) Alkaline Phosphatase 67 78 Total Protein 7.0 7.9 Albumin 3.1 3.4 Urine Color YELLOW Urine Turbidity MOD Urine pH 6.0 Urine Specific [place] 1.017 Urine Protein NEG Urine Glucose (UA) 250 Urine Ketones TRACE Urine Occult Blood NEG Urine Nitrite NEG Urine Bilirubin NEG Urine Leukocyte Esterase NEG Urine Squamous Epithelial > 8 Cells Urine Amorphous Sediment MOD Urine Bacteria FEW Urine Hyaline Casts 3-5 Urine Mucus FEW Microscopic Urinalysis Comment CULT NOT INDICATED Result Diagram: 10/13/16 0941 10/13/16 0941 Attending Statement Neuro. neuro checks in a serial fashion. I reviewed her MRI spine. I discussed with her the alternatives of treatment including the possibility of a kyphoplasty at t12. We have discussed the details including the [id number] details of the surgical procedure, its indications, alternatives, risks, and potential complications. Risks and potential complications include, but are not limited to, infection, blood loss, CSF leak, partial or complete loss of sight in one or both eyes, paresis, paralysis, permanent pain or difficulty swallowing, loss of bowel or bladder function, complications from anesthesia, blood clot, stroke, myocardial infarction, or even . Pulmonary. aggressive pulmonary toilette, nasotracheal suction, and breathing treatments with nebulizers. PT and OT evaluation Nutrition. NPO Renal. monitor closely urine output, BUN and creatinine Endocrine. Monitor serial Acu checks and SSI as needed in detail ID monitor for signs of infection Protonix for stress ulcer prophylaxis Cj hose and SCD's for DVT prophylaxis Vijay Burk MD Oct 13, 2016 13:03
--- NOTE | 2016-10-13 13:08 | PD.CONS ---
[facility] Service Neurosurgery Consult Requested By [facility] Reason for Consult T12 fracture Primary Care Physician Unknown History of Present Illness This is a 89 year old female with a history of HTN, hyperlipidemia and arthritis presented to the [facility] emergency room with complaints of intractable back pain. She states that her pain is throbbing, 8-9/10, in the middle of her back, worse when laying in bed or turning in bed. She states during the day her pain gets worse and unbearable. Today she states the pain made it difficult to walk. No associated numbness in her lower extremities. She denies any trauma, or fall. She does take swing classes 3 days a week, but doesn 't remember twisting wrong. She denies any chest pain, sob, fever, chills, rash , headaches or dizziness. She denies incontinence of stool or urine the brain show a compression fracture at T12. Neurosurgical consultation was requested Review of Systems Constitutional: DENIES: Diaphoretic episodes, Fatigue, Fever, Weight gain, Weight loss, Chills, Dizziness, Change in appetite, Night Sweats Endocrine: DENIES: Abnorml menstrual pattern, Heat/cold intolerance, Polydipsia , Polyuria, Polyphagia Eyes: DENIES: Blurred vision, Diplopia, Eye inflammation, Eye pain, Vision loss , Photosensitivity, Double Vision Cardiovascular: DENIES: Chest pain, Palpitations, Syncope, Dyspnea on Exertion , PND, Lower Extremity Edema, Orthopnea, Claudication Gastrointestinal: DENIES: Abdominal pain, Black stools, Bloody stools, Constipation, Diarrhea, Nausea, Vomiting, Difficulty Swallowing, Anorexia Genitourinary: DENIES: Abnormal vaginal bleeding, Dysmenorrhea, Dyspareunia, Sexual dysfunction, Urinary frequency, Urinary incontinence, Urgency, Hematuria , Dysuria, Nocturia, Vaginal discharge Musculoskeletal: COMPLAINS OF: Back pain, DENIES: Joint pain, Muscle aches, Stiffness, Joint Swelling, Neck pain Integumentary: DENIES: Abnormal pigmentation, Pruritus, Rash, Nail changes, Breast masses, Breast skin changes, Nipple discharge Hematologic/lymphatic: DENIES: Bruising, Lymphadenopathy Immunologic/allergic: DENIES: Eczema, Urticaria Neurologic: COMPLAINS OF: Abnormal gait, DENIES: Headache, Localized weakness , Paresthesias, Seizures, Speech Problems, Tremor, Poor Balance Psychiatric: DENIES: Anxiety, Confusion, Mood changes, Depression, Hallucinations, Agitation, Suicidal Ideation, Homicidal Ideation, Delusions Past Family Social History Allergies: Coded Allergies: Penicillin (Verified Allergy, Intermediate, Rash, 10/12/16) Past Medical History Review of Systems Constitutional: DENIES: Diaphoretic episodes, Fatigue, Fever, Weight gain, Weight loss, Chills, Dizziness, Change in appetite, Night Sweats Endocrine: DENIES: Abnorml menstrual pattern, Heat/cold intolerance, Polydipsia , Polyuria, Polyphagia Eyes: DENIES: Blurred vision, Diplopia, Eye inflammation, Eye pain, Vision loss , Photosensitivity, Double Vision Ears, nose, mouth, throat: DENIES: Tinnitus, Hearing loss, Vertigo, Nasal discharge, Oral lesions, Throat pain, Hoarseness, Ear Pain, Running Nose, Epistaxis, Sinus Pain, Toothache, Odynophagia Respiratory: DENIES: Apneas, Cough, Snoring, Wheezing, Hemoptysis, Sputum production, Shortness of breath Cardiovascular: DENIES: Chest pain, Palpitations, Syncope, Dyspnea on Exertion , PND, Lower Extremity Edema, Orthopnea, Claudication Gastrointestinal: DENIES: Abdominal pain, Black stools, Bloody stools, Constipation, Diarrhea, Nausea, Vomiting, Difficulty Swallowing, Anorexia Genitourinary: DENIES: Abnormal vaginal bleeding, Dysmenorrhea, Dyspareunia, Sexual dysfunction, Urinary frequency, Urinary incontinence, Urgency, Hematuria , Dysuria, Nocturia, Vaginal discharge Musculoskeletal: COMPLAINS OF: Back pain, DENIES: Joint pain, Muscle aches, Stiffness, Joint Swelling, Neck pain Integumentary: DENIES: Abnormal pigmentation, Pruritus, Rash, Nail changes, Breast masses, Breast skin changes, Nipple discharge Hematologic/lymphatic: DENIES: Bruising, Lymphadenopathy Immunologic/allergic: DENIES: Eczema, Urticaria Neurologic: COMPLAINS OF: Abnormal gait, DENIES: Headache, Localized weakness , Paresthesias, Seizures, Speech Problems, Tremor, Poor Balance Psychiatric: DENIES: Anxiety, Confusion, Mood changes, Depression, Hallucinations, Agitation, Suicidal Ideation, Homicidal Ideation, Delusions Past Family Social History Allergies: Coded Allergies: Penicillin (Verified Allergy, Intermediate, Rash, 10/12/16) Past Medical History HTN HLD Arthritis Hysterectomy Reported Medications Reported Meds & Active Scripts Active Reported Hydrochlorothiazide 25 Mg Tab 25 Mg PO DAILY Atenolol 50 Mg Tab 50 Mg PO DAILY Lisinopril 20 Mg Tab 20 Mg PO DAILY Meloxicam 15 Mg Tab 15 Mg PO DAILY Simvastatin 10 Mg Tab 10 Mg PO DAILY Allergies: Coded Allergies: Penicillin (Verified Allergy, Intermediate, Rash, 10/12/16) Active Ordered Medications Current Medications Medications (Trade) Dose Ordered Sig/Redd Route Start Time Stop Time Status Last Admin (NS Flush) 2 ml UNSCH PRN IV FLUSH 10/12/16 21:30 (NS Flush) 2 ml BID IV FLUSH 10/13/16 09:00 (Zofran Inj) 4 mg Q6H PRN IVP 10/13/16 00:00 (Tylenol) 650 mg Q6H PRN PO 10/13/16 02:00 (Brunswick 5-325 Mg) 1 tab Q4H PRN PO 10/12/16 22:00 (Morphine Inj) 2 mg Q3H PRN IV 10/12/16 21:30 (Aylin-Colace) 1 tab BID PO 10/13/16 09:00 (Milk Of Magnesia Liq) 30 ml Q12H PRN PO 10/12/16 21:30 (Senokot) 17.2 mg Q12H PRN PO 10/12/16 21:30 (Dulcolax Supp) 10 mg DAILY PRN RECTAL 10/12/16 21:30 (Lactulose Liq) 30 ml DAILY PRN PO 10/12/16 21:30 (Tenormin) 50 mg DAILY PO 10/13/16 09:00 (Hydrodiuril) 25 mg DAILY PO 10/13/16 09:00 (Prinivil) 20 mg DAILY PO 10/13/16 09:00 (Pravachol) 20 mg DAILY PO 10/13/16 09:00 Family History Patient denies any family history of heart disease or cancer. Social History Patient denies any tobacco, alcohol or illicit drug use. Physical Exam Vital Signs Vital Signs Date Time Temp Pulse Resp B/P Pulse Ox O2 Delivery O2 Flow Rate FiO2 10/13/16 11:05 98.5 66 18 126/56 91 10/13/16 07:21 97.9 58 20 152/63 95 10/13/16 02:45 97.5 71 18 145/67 93 10/13/16 01:57 60 16 117/60 95 Room Air 10/13/16 00:30 60 16 119/57 95 Room Air 10/12/16 23:00 62 16 131/62 97 Room Air 10/12/16 22:18 92 21 10/12/16 21:39 16 10/12/16 21:30 63 16 127/61 95 Room Air 10/12/16 19:00 16 10/12/16 19:00 74 16 141/82 92 Room Air 10/12/16 18:50 16 10/12/16 18:15 10/12/16 18:09 98.6 75 16 151/64 97 Room Air Laboratory Laboratory Tests Test 10/12/16 10/12/16 10/13/16 19:00 19:37 09:41 White Blood Count 9.2 8.9 Red Blood Count 4.33 4.62 Hemoglobin 12.1 13.1 Hematocrit 36.0 38.3 Mean Corpuscular Volume 83.2 82.8 Mean Corpuscular Hemoglobin 27.9 28.4 Mean Corpuscular Hemoglobin 33.5 34.3 Concent Red Cell Distribution Width 14.4 14.8 Platelet Count 273 323 Mean Platelet Volume 8.0 8.2 Neutrophils (%) (Auto) 79.5 69.7 Lymphocytes (%) (Auto) 11.8 21.2 Monocytes (%) (Auto) 6.2 8.0 Eosinophils (%) (Auto) 0.6 0.8 Basophils (%) (Auto) 1.9 0.3 Neutrophils # (Auto) 7.2 6.2 Lymphocytes # (Auto) 1.1 1.9 Monocytes # (Auto) 0.6 0.7 Eosinophils # (Auto) 0.1 0.1 Basophils # (Auto) 0.2 0.0 CBC Comment DIFF FINAL DIFF FINAL Differential Comment Sodium Level 135 135 Potassium Level 4.5 4.5 Chloride Level 99 97 Carbon Dioxide Level 30.0 29.8 Anion Gap 6 8 Blood Urea Nitrogen 39 33 Creatinine 0.86 0.86 Estimat Glomerular Filtration 62 62 Rate Random Glucose 114 124 Calcium Level 8.9 9.5 Total Bilirubin 0.5 0.6 Aspartate Amino Transf 28 20 (AST/SGOT) Alanine Aminotransferase 23 24 (ALT/SGPT) Alkaline Phosphatase 67 78 Total Protein 7.0 7.9 Albumin 3.1 3.4 Urine Color YELLOW Urine Turbidity MOD Urine pH 6.0 Urine Specific [place] 1.017 Urine Protein NEG Urine Glucose (UA) 250 Urine Ketones TRACE Urine Occult Blood NEG Urine Nitrite NEG Urine Bilirubin NEG Urine Leukocyte Esterase NEG Urine Squamous Epithelial > 8 Cells Urine Amorphous Sediment MOD Urine Bacteria FEW Urine Hyaline Casts 3-5 Urine Mucus FEW Microscopic Urinalysis Comment CULT NOT INDICATED Result Diagram: 10/13/1694010/13/16940 Attending Statement Neuro. neuro checks in a serial fashion. I reviewed her MRI spine. I discussed with her the alternatives of treatment including the possibility of a kyphoplasty at t12. We have discussed the details including the [id number] details of the surgical procedure, its indications, alternatives, risks, and potential complications. Risks and potential complications include, but are not limited to, infection, blood loss, CSF leak, partial or complete loss of sight in one or both eyes, paresis, paralysis, permanent pain or difficulty swallowing, loss of bowel or bladder function, complications from anesthesia, blood clot, stroke, myocardial infarction, or even . Pulmonary. aggressive pulmonary toilette, nasotracheal suction, and breathing treatments with nebulizers. PT and OT evaluation Nutrition. NPO Renal. monitor closely urine output, BUN and creatinine Endocrine. Monitor serial Acu checks and SSI as needed in detail ID monitor for signs of infection Protonix for stress ulcer prophylaxis Cj hose and SCD's for DVT prophylaxis Physical Exam Vital Signs Vital Signs Date Time Temp Pulse Resp B/P Pulse Ox O2 Delivery O2 Flow Rate FiO2 10/13/16 11:05 98.5 66 18 126/56 91 10/13/16 07:21 97.9 58 20 152/63 95 10/13/16 02:45 97.5 71 18 145/67 93 10/13/16 01:57 60 16 117/60 95 Room Air 10/13/16 00:30 60 16 119/57 95 Room Air 10/12/16 23:00 62 16 131/62 97 Room Air 10/12/16 22:18 92 21 10/12/16 21:39 16 10/12/16 21:30 63 16 127/61 95 Room Air 10/12/16 19:00 16 10/12/16 19:00 74 16 141/82 92 Room Air 10/12/16 18:50 16 10/12/16 18:15 10/12/16 18:09 98.6 75 16 151/64 97 Room Air Physical Exam She is alert, awake and oriented to time, place and person. Speech is fluent. Cranial nerve examination: pupils to be equal, round and reactive to light. Extra-ocular movements are intact. Facial motor and sensory function are normal and symmetrical. Gross hearing appears decreased. Sternocleidomastoid and trapezius muscles are symmetrical. Other cranial nerves are intact. Neck is soft and supple with a good, but decreased range of motion without pain. Muscle strength is normal in all muscle groups of both upper and lower extremities. Sensory examination is intact to light touch and pin prick in both the upper and lower extremities. Deep tendon reflexes are symmetrical in both upper and lower extremities. There is a bilateral plantar flexion response. Cerebellar examination is unremarkable, without deficits. Laboratory Laboratory Tests Test 10/12/16 10/12/16 10/13/16 19:00 19:37 09:41 White Blood Count 9.2 8.9 Red Blood Count 4.33 4.62 Hemoglobin 12.1 13.1 Hematocrit 36.0 38.3 Mean Corpuscular Volume 83.2 82.8 Mean Corpuscular Hemoglobin 27.9 28.4 Mean Corpuscular Hemoglobin 33.5 34.3 Concent Red Cell Distribution Width 14.4 14.8 Platelet Count 273 323 Mean Platelet Volume 8.0 8.2 Neutrophils (%) (Auto) 79.5 69.7 Lymphocytes (%) (Auto) 11.8 21.2 Monocytes (%) (Auto) 6.2 8.0 Eosinophils (%) (Auto) 0.6 0.8 Basophils (%) (Auto) 1.9 0.3 Neutrophils # (Auto) 7.2 6.2 Lymphocytes # (Auto) 1.1 1.9 Monocytes # (Auto) 0.6 0.7 Eosinophils # (Auto) 0.1 0.1 Basophils # (Auto) 0.2 0.0 CBC Comment DIFF FINAL DIFF FINAL Differential Comment Sodium Level 135 135 Potassium Level 4.5 4.5 Chloride Level 99 97 Carbon Dioxide Level 30.0 29.8 Anion Gap 6 8 Blood Urea Nitrogen 39 33 Creatinine 0.86 0.86 Estimat Glomerular Filtration 62 62 Rate Random Glucose 114 124 Calcium Level 8.9 9.5 Total Bilirubin 0.5 0.6 Aspartate Amino Transf 28 20 (AST/SGOT) Alanine Aminotransferase 23 24 (ALT/SGPT) Alkaline Phosphatase 67 78 Total Protein 7.0 7.9 Albumin 3.1 3.4 Urine Color YELLOW Urine Turbidity MOD Urine pH 6.0 Urine Specific [place] 1.017 Urine Protein NEG Urine Glucose (UA) 250 Urine Ketones TRACE Urine Occult Blood NEG Urine Nitrite NEG Urine Bilirubin NEG Urine Leukocyte Esterase NEG Urine Squamous Epithelial > 8 Cells Urine Amorphous Sediment MOD Urine Bacteria FEW Urine Hyaline Casts 3-5 Urine Mucus FEW Microscopic Urinalysis Comment CULT NOT INDICATED Result Diagram: 10/13/16 0941 10/13/16 0941 Imaging Last Impressions Thoracic Spine CT 10/12/16 0000 Signed Impressions: Service Date/Time: Wednesday, October 12, 2016 18:17 - CONCLUSION: 1. Compression fracture through superior aspect of T12 without significant loss of vertebral body height. Fracture is probably subacute with some resorption at the fracture line. Prominent osteophyte at this level posteriorly results in a mild to moderate AP canal stenosis. No other fractures. Nicholas Yañez MD Lumbar Spine CT 10/12/16 0000 Signed Impressions: Service Date/Time: Wednesday, October 12, 2016 18:17 - CONCLUSION: 1. T12 fracture. See thoracic spine CT report. No lumbar spine fracture. 2. 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 Nicholas Yañez MD Assessment and Plan Assessment and Plan (1) T12 compression fracture ICD Code: S22.080A Status: Acute (2) Intractable back pain ICD Code: M54.9 Status: Acute Attending Statement Neuro. neuro checks in a serial fashion. I reviewed her CT spine. Recommend MRI T spine. I discussed with her the alternatives of treatment including the possibility of a kyphoplasty at t12. We have discussed the details including the [id number] details of the surgical procedure, its indications, alternatives, risks, and potential complications. Risks and potential complications include, but are not limited to, infection, blood loss, CSF leak, partial or complete loss of sight in one or both eyes, paresis, paralysis, permanent pain or difficulty swallowing, loss of bowel or bladder function, complications from anesthesia, blood clot, stroke, myocardial infarction, or even . Pulmonary. aggressive pulmonary toilette, nasotracheal suction, and breathing treatments with nebulizers. PT and OT evaluation Nutrition. NPO Renal. monitor closely urine output, BUN and creatinine Endocrine. Monitor serial Acu checks and SSI as needed in detail ID monitor for signs of infection Protonix for stress ulcer prophylaxis Cj hoscyndi and SCD's for DVT prophylaxis Vijay Burk MD Oct 13, 2016 13:08
[2016-10-13] MEDS: MORPHINE SULFATE 4 MG/ML INJ IV PRN (14:25)
--- NOTE | 2016-10-13 16:30 | RADRPT ---
EXAM DATE/TIME: 10/13/2016 15:21 [facility] COMPARISON: CT LUMBAR SPINE W/O CONTRAST, October 12, 2016, 18:17. INDICATIONS : T12 Fracture. MEDICAL HISTORY : Hypertension. SURGICAL HISTORY : Hysterectomy. Left arm. ENCOUNTER: Initial ACUITY: 2 day PAIN SCORE: 5/10 LOCATION: back TECHNIQUE: Multiplanar multisequence MRI of the thoracic spine was performed. FINDINGS: Alignment is satisfactory. There is a fracture at the T12 level with a cleft horizontally involving t he upper aspect of T12 and mild edema signal present elsewhere in the vertebral body. The finding fernandez s appear subacute. There is dorsal disc osteophyte at the T11-12 disc space level without significant superimposed traumatic bony retropulsion. The at the T12-L1 level, there is a moderate size right pa racentral disc protrusion indenting the lateral recess and extending into the right neural foramen. N o significant focal abnormalities are identified elsewhere. CONCLUSION: T12 fracture, mainly horizontal upper vertebral body cleft Sumit Eddy MD on October 13, 2016 at 16:18 Board Certified Radiologist. This report was verified electronically.
[2016-10-14] VITALS (8 sets, daily range): BP systolic 121–148; BP diastolic 58–76; PULSE 59–76; RESP 16–20; TEMP 96.8–97.9; O2SAT 94–98
[2016-10-14] MEDS: DOCUSATE SODIUM 50 MG/SENNA 8.6 MG TAB PO SCH ×2 (09:00→21:59)
[2016-10-14] MEDS ORDERED: CALCITONIN SALM 200 UNIT/SPRAY 3.7 ML BTLN NASAL SCH (09:00)
[2016-10-14] MEDS: SODIUM CHLORIDE 0.9% FLUSH 10 ML FLUSH IV FLUSH SCH (09:00)
[2016-10-14] MEDS: PRAVASTATIN SOD 20 MG TAB PO SCH (09:00)
[2016-10-14] MEDS: HYDROCHLOROTHIAZIDE 25 MG TAB PO SCH (09:00)
[2016-10-14] MEDS: ATENOLOL 50 MG TAB PO SCH (09:00)
[2016-10-14] MEDS: LISINOPRIL 20 MG TAB PO SCH (09:00)
--- NOTE | 2016-10-14 09:50 | HHI.PR ---
Subjective Remarks Follow up for T12 fracture, lower ext pain. Patient is resting well in bed. She is going for kyphoplasty today. No fever, chills. Objective Vitals Vital Signs Date Time Temp Pulse Resp B/P Pulse Ox O2 Delivery O2 Flow Rate FiO2 10/14/16 07:54 97.6 66 18 145/65 96 10/14/16 04:01 97.1 66 20 133/59 10/14/16 00:46 96.8 59 18 121/58 96 10/13/16 19:21 98.1 62 18 120/58 96 10/13/16 16:40 98.6 62 23 144/63 94 10/13/16 14:30 20 10/13/16 11:05 98.5 66 18 126/56 91 Result Diagram: 10/13/16 0941 10/13/16 0941 Imaging Last Impressions Thoracic Spine X-Ray 10/14/16 0000 Signed Impressions: Service Date/Time: Friday, October 14, 2016 15:50 - CONCLUSION: 1. Postoperative T12 kyphoplasty. Nicholas Yañez MD Thoracic Spine MRI 10/13/16 0000 Signed Impressions: Service Date/Time: Thursday, October 13, 2016 15:21 - CONCLUSION: T12 fracture, mainly horizontal upper vertebral body cleft Sumit Eddy MD Thoracic Spine CT 10/12/16 0000 Signed Impressions: Service Date/Time: Wednesday, October 12, 2016 18:17 - CONCLUSION: 1. Compression fracture through superior aspect of T12 without significant loss of vertebral body height. Fracture is probably subacute with some resorption at the fracture line. Prominent osteophyte at this level posteriorly results in a mild to moderate AP canal stenosis. No other fractures. Nicholas Yañez MD Lumbar Spine CT 10/12/16 0000 Signed Impressions: Service Date/Time: Wednesday, October 12, 2016 18:17 - CONCLUSION: 1. T12 fracture. See thoracic spine CT report. No lumbar spine fracture. 2. 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 Nicholas Yañez MD Objective Remarks GENERAL: Alert, Oriented x 3, NAD. SKIN: Warm and dry. HEAD: Normocephalic. EYES: No scleral icterus. No injection or drainage. NECK: Supple, trachea midline. No JVD or lymphadenopathy. CARDIOVASCULAR: Regular rate and rhythm without murmurs, gallops, or rubs. RESPIRATORY: Breath sounds equal bilaterally. No accessory muscle use. GASTROINTESTINAL: Abdomen soft, non-tender, nondistended. MUSCULOSKELETAL: No cyanosis, or edema. BACK: Nontender without obvious deformity. No CVA tenderness. Procedures 10/14/2016 T12 Kyphoplasty A/P Problem List: (1) T12 compression fracture ICD Code: S22.080A Status: Acute (2) Intractable back pain ICD Code: M54.9 Status: Acute Assessment and Plan Ms. Suárez was seen this morning around 10AM. This is a pleasant 89 year old female who presented to the ED due to worsening low back pain that started about 3 days prior to this admission. Imaging studies indicated T12 compression fracture. - T12 Compression fracture - Images reviewed by me on 10/13/2016, shows T12 fracture. - Neurosurgery performed kyphoplasty on 10/14/2016. - Will start short course of calcitonin nasal spray. - Continue Mcloud and Morphine PRN for pain. - Hypertension - Hyperlipidemia - Continue Pravastatin 20mg Qday, Lisinopril 20mg Qday, HCTZ 25mg Qday, Atenolol 50mg Qday. Full code. SCDs. Discussed with Dr. Burk (Neurosurgery). Tiny Díaz DO Oct 14, 2016 09:50
[2016-10-14] MEDS: MORPHINE SULFATE 4 MG/ML INJ IV PRN (11:38)
[2016-10-14] MEDS ORDERED: BUPIVACAINE/EPINEPHRINE 0.5% 50 ML VIAL ONE (13:08)
[2016-10-14] MEDS ORDERED: MIDAZOLAM HCL 2 MG/2 ML VIAL ONE ×2 (14:24→14:29)
[2016-10-14] MEDS ORDERED: fentaNYL CITRATE 250 MCG/5 ML AMP ONE (14:24)
[2016-10-14] MEDS ORDERED: FAMOTIDINE 20 MG/2 ML VIAL ONE (14:29)
[2016-10-14] MEDS ORDERED: ceFAZolin 2 GM PREMIX 50 ML ONE (14:44)
--- NOTE | 2016-10-14 16:05 | PD.OP ---
Operative Report Date of Surgery: Oct 14, 2016 Preoperative Diagnosis: T12 compression fracture Postoperative Diagnosis: T12 compression fracture Procedure: T12 Kyphoplasty Anesthesia: general Surgeon: Vijay Burk Industrial Maintenance Repairer Helper(s): JOSIE Operation and Findings: INDICATIONS FOR THE PROCEDURE ms Suárez is a 89 year-old female who presented with intractable pain related to a T12 compression fracture. The patient has failed nonsurgical management and a kyphoplasty was indicated as the most appropriate form of treatment. The [id number] details of the procedure, indications, alternatives, risks and potential complications were fully discussed with the patient. The patient fully understood. All The questions were answered. No guarantees were given. The patient voiced requesting the procedure and provided informed consents. The patient was offered the alternative of delaying the procedure and continuing with nonsurgical management. DETAILS OF THE SURGICAL PROCEDURE The patient was brought to the operating room and after the induction of general anesthesia, endotracheal intubation was performed. A Verma catheter and bilateral APULETTE hose and sequential compression devices were placed and kept throughout the procedure. The patient was positioned prone on the Nilesh table over gel rods. All pressure points were carefully padded with egg crate mattress. The eyes were tapped shut after ointment was applied by the anesthesiologist to prevent corneal abrasion. A Desean hugger was placed over the exposed lower body to maintain control of the core body temperature. The lumbar region was prepped and draped in the usual sterile fashion. The C-arms were brought to the field and simultaneous AP and lateral x-rays were obtained. The levels were carefully counted and the pedicles were marked over the skin. An entry point was selected 1 centimeter superior and 1 centimeter lateral to the pedicle of T12. Two small incisions were outlined on the skin and infiltrated with 1% lidocaine with epinephrine in 1:100,000 dilution. Initially, two small skin incisions were made with a #11 blade. Then, Jamshidi needles were carefully advanced to the entrance of the pedicle, and then into the vertebral body under continuous fluoroscopic guidance. K-wires were placed inside the T12 vertebral body of and the needles were carefully removed. A drill was used to create a trough into the vertebral body to insert a cannula. Once the cannula was located through the pedicle, the drill was removed and bilateral balloons were inserted into the vertebral body for vertebral augmentation. A careful expansion of the balloon under continuous fluoroscopic guidance and manometric evaluation allowed expansion of the vertebral body. Then, the balloons were deflated and carefully removed and the voids created in the vertebral body were filled with bone cement under fluoroscopic visualization. A very good expansion of the vertebral bodies was achieved without evidence of extravasation or cement or other complications. The cannulas were then removed. The incisions were closed using a single Ethylon stitch at each incision. Dermabond was applied to the skin. At the end of the procedure, the sponge, needle, instrument counts correct. The estimated blood loss as minimal. No intraoperative complications occurred. The patient received prophylactic antibiotics. The patient was then extubated and transferred to the recovery room in stable condition. Vijay Burk MD Oct 14, 2016 16:05
[2016-10-14] MEDS ORDERED: DO NOT ADM ANY ANTICOAGULANT DRUGS PRN (16:12)
[2016-10-14] MEDS ORDERED: SODIUM CHLORIDE 0.9% FLUSH 5 ML FLUSH IVF PRN (16:15)
[2016-10-14] MEDS ORDERED: ACETAMINOPHEN 325 MG TAB PO PRN (16:15)
[2016-10-14] MEDS ORDERED: ACETAMINOPHEN/HYDROcodone 325 MG/10 MG TAB PO PRN (16:15)
[2016-10-14] MEDS ORDERED: MORPHINE SULFATE 4 MG/ML INJ IV PUSH PRN ×2 (16:15)
[2016-10-14] MEDS ORDERED: *morphine SULFATE 8 MG/ML PERIprocedure ONLY ONE (16:51)
[2016-10-14] MEDS: NS + KCL 20 MEQ INJ 1,000 ML IV SCH (17:51)
--- NOTE | 2016-10-14 19:08 | RADRPT ---
EXAM DATE/TIME: 10/14/2016 15:50 [facility] COMPARISON: No previous studies available for comparison. INDICATIONS : T12 Kyphoplasty. MEDICAL HISTORY : Hypertension. Arthritis. SURGICAL HISTORY : Hysterectomy. ENCOUNTER: Subsequent ACUITY: 2 days PAIN SCORE: Non-responsive. LOCATION: Thoracic spine. FINDINGS: Spot films reveal postop kyphoplasty at T12 with minimal residual compression. No complications ident ified. CONCLUSION: 1. Postoperative T12 kyphoplasty. Nicholas Yañez MD on October 14, 2016 at 19:06 Board Certified Radiologist. This report was verified electronically.
[2016-10-14] MEDS ORDERED: DOCUSATE SODIUM 100 MG CAP PO SCH (21:00)
[2016-10-14] MEDS: SODIUM CHLORIDE 0.9% FLUSH 5 ML FLUSH IVF SCH (21:00)
[2016-10-14] MEDS: ceFAZolin 2 GM PREMIX 50 ML IV SCH (22:00)
[2016-10-15] VITALS (14 sets, daily range): BP systolic 124–180; BP diastolic 50–73; PULSE 64–104; RESP 16–20; TEMP 97.8–98.8; O2SAT 0–100
[2016-10-15] MEDS: NS + KCL 20 MEQ INJ 1,000 ML IV SCH ×2 (04:16→20:51)
[2016-10-15] MEDS ORDERED: LIDOCAINE HCL 2% 100 MG/5 ML SYRINGE IV PUSH ONE (05:00)
[2016-10-15] MEDS ORDERED: EPINEPHrine HCL (1:10,000) 1 MG/10 ML SYRINGE IV ONE (05:00)
[2016-10-15] MEDS ORDERED: SODIUM BICARBONATE 8.4% INJ 50 MEQ/50 ML SYR IV ONE (05:00)
[2016-10-15] MEDS ORDERED: ATROPINE SULFATE 1 MG/10 ML SYRINGE IV ONE (05:00)
[2016-10-15] MEDS: ceFAZolin 2 GM PREMIX 50 ML IV SCH ×2 (05:44→14:01)
--- NOTE | 2016-10-15 08:33 | EKG ---
Date Performed: 10/14/2016 Time Performed: 13:40:13 PTAGE: 89 years EKG: Sinus rhythm MARKED LEFT AXIS DEVIATION LEFT BUNDLE BRANCH BLOCK ABNORMAL ECG NO PREVIOUS TRACING DOCTOR: Norbert Quintanilla Interpretating Date/Time 10/15/2016 08:29:03
[2016-10-15] MEDS ORDERED: PANTOPRAZOLE SOD 40 MG DELAYED RELEASE TAB PO SCH (09:00)
--- NOTE | 2016-10-15 09:48 | HHI.PR ---
Addendum to Inpatient Note Additional Information Luist was called after patient was found unresponsive. Went to evaluate patient. Initially there was pulse with heart rate 35. We gave her one dose of Atropine. Another pulse check indicated no pulse. ACLS protocol was initiated for PEA. Dr. Golden (Plant Etiologist) came and administered 1 dose of epi with ROSC. Patient was intubated. Patient was subsequently taken to ICU. Plant Etiologist consult placed. Attempted to call family member twice without success. Tiny Díaz DO Oct 15, 2016 9:48 am
[2016-10-15] MEDS ORDERED: NOREPINEPHRINE-DEXTROSE DRIP 250 ML IV ONE (10:27)
[2016-10-15 10:35] LABS: AUTOMATED NEUTROPHIL # 10.8 TH/MM3 (1.8-7.7); BASOPHIL % 0.2 % (0.0-2.0); EOSINOPHIL % 0.1 % (0.0-4.0); HEMO FLAGS DIFF FINAL; LYMPH % 20.5 % (9.0-44.0); MEAN CELL VOLUME 86.4 FL (80.0-100.0); MEAN CORPUSCULAR HEMOGLOBIN 27.5 PG (27.0-34.0); MEAN CORPUSCULAR HGB CONC 31.9 % (32.0-36.0); MONO % 5.6 % (0.0-8.0); NEUT % 73.6 % (16.0-70.0); PLATELET COUNT 342 TH/MM3 (150-450); RED BLOOD COUNT 3.93 MIL/MM3 (4.00-5.30); WHITE BLOOD COUNT 14.7 TH/MM3 (4.0-11.0)
[2016-10-15] MEDS ORDERED: MAGNESIUM HYDROXIDE SUSP 30 ML CUP PO PRN (10:45)
[2016-10-15] MEDS ORDERED: CHLORHEXIDINE GLUCONATE 2 % 1 PACK (2 CLOTHS) TOP PRN (10:45)
[2016-10-15] MEDS ORDERED: MORPHINE SULFATE 4 MG/ML INJ IV PRN (10:45)
[2016-10-15] MEDS ORDERED: RESP: ALBUTEROL 2.5 MG/IPRATROPIUM 0.5 MG NEB (PRN) INH (10:45)
[2016-10-15] MEDS ORDERED: BISACODYL 10 MG SUPP RECTAL PRN (10:45)
[2016-10-15] MEDS ORDERED: MISCELLANEOUS NURSING INFORMATION XX SCH (10:45)
[2016-10-15] MEDS ORDERED: SENNOSIDES 8.6 MG TAB PO PRN (10:45)
[2016-10-15] MEDS ORDERED: ACETAMINOPHEN 325 MG TAB PO PRN (10:45)
[2016-10-15 10:55] LABS: ALKALINE PHOSPHATASE 72 U/L (45-117); ALT (GPT) 30 U/L (10-53); ANION GAP 14 MEQ/L (5-15); AST (GOT) 36 U/L (15-37); BICARBONATE 20.7 MEQ/L (21.0-32.0); BLOOD UREA NITROGEN 19 MG/DL (7-18); CHLORIDE 101 MEQ/L (98-107); CREATINE KINASE 125 U/L (26-192); GLOMERULAR FILTRATION RATE 42 ML/MIN (>89); MAGNESIUM 3.5 MG/DL (1.5-2.5); POTASSIUM 4.1 MEQ/L (3.5-5.1); SODIUM (NA) 136 MEQ/L (136-145); TOTAL BILIRUBIN ADULT 0.2 MG/DL (0.2-1.0)
--- NOTE | 2016-10-15 10:58 | PD.CONS ---
HPI Service Critical Care Medicine Consult Requested By [facility] Reason for Consult Cardiopulmonary Arrest Primary Care Physician Unknown History of Present Illness 89 y/o woman yesterday underwent T12 kyphoplasty for intractable pain following compression fracture. Procedure was uncomplicated and she did quite well the evening of surgery. Mid-morning today she was found in respiratory distress with food in her mouth by report. This progressed to full cardiac arrest from which she was rapidly resuscitated after 1 round of meds and CPR. Intubated on floor and transported to [facility] where I met her on her arrival. CXR with ET tube at diane - withdrawn 2 cm. CVL good position. NG tube looped in esophagus - repositioned. Initial ECG with ischemia, possibly rate related. Discussed with Cardiology Service by Dr. Manzano. Review of Systems ROS Unobrtainable. No family. Past Family Social History Allergies: Coded Allergies: Penicillin (Verified Allergy, Intermediate, Rash, 10/12/16) Past Medical History Past Medical History Arthritis: Yes High Cholesterol: Yes Diminished Hearing: No Hypertension: Yes Immunizations Current: No Tetanus Vaccination: > 5 Years Influenza Vaccination: No Past Surgical History Hysterectomy: Yes (1975) Social History Alcohol Use: No Tobacco Use: No Substance Use: No Allergies-Medications Allergies-Medications (Allergen,Severity, Reaction): Coded Allergies: Penicillin (Verified Allergy, Intermediate, Rash, 10/12/16) Reported Meds & Prescriptions Reported Meds & Active Scripts Active Reported Hydrochlorothiazide 25 Mg Tab 25 Mg PO DAILY Atenolol 50 Mg Tab 50 Mg PO DAILY Lisinopril 20 Mg Tab 20 Mg PO DAILY Meloxicam 15 Mg Tab 15 Mg PO DAILY Simvastatin 10 Mg Tab 10 Mg PO DAILY Physical Exam Vital Signs Vital Signs Date Time Temp Pulse Resp B/P Pulse Ox O2 Delivery O2 Flow Rate FiO2 10/15/16 10:46 0 100 10/15/16 10:00 100 100 10/15/16 08:49 98.1 76 19 180/73 98 10/15/16 08:41 95 Nasal Cannula 2.00 10/15/16 05:55 97.8 76 20 148/62 96 10/15/16 01:31 98.1 71 19 124/65 93 10/14/16 21:30 97.7 76 20 130/76 98 10/14/16 20:13 94 Nasal Cannula 2.00 10/14/16 18:47 97.5 69 18 148/67 94 10/14/16 17:30 69 16 145/65 96 Nasal Cannula 2 10/14/16 17:15 69 16 147/65 98 Nasal Cannula 2 10/14/16 17:00 71 16 145/64 99 Nasal Cannula 2 10/14/16 16:45 73 16 149/62 98 Nasal Cannula 2 10/14/16 16:30 80 16 149/70 96 Nasal Cannula 2 10/14/16 16:17 98.5 104 16 189/81 97 Nasal Cannula 2 10/14/16 11:58 97.9 65 16 123/59 96 Physical Exam Gen: Largely unresponsive. Head: Atraumatic, normal. Neck: Supple, orally intubated. Lungs: Clear, few crackles, no wheezes. Heart: NL s1S2, no m,r, ++JVD. Abdomen: Soft, mildly distended, voluntary guarding only. Quiet. Extremities: Tepid, well perfused. Neuro: Pupils 3 mm left n no response, ? cataract surgery. Right pupil 2 mm, reacts sluggishly. Toes up going bilaterally. DTRs patella 2+ craig. Positive cough and gag. Laboratory Laboratory Tests Test 10/15/16 10:00 White Blood Count 14.7 Red Blood Count 3.93 Hemoglobin 10.8 Hematocrit 34.0 Mean Corpuscular Volume 86.4 Mean Corpuscular Hemoglobin 27.5 Mean Corpuscular Hemoglobin 31.9 Concent Red Cell Distribution Width 15.0 Platelet Count 342 Mean Platelet Volume 8.0 Neutrophils (%) (Auto) 73.6 Lymphocytes (%) (Auto) 20.5 Monocytes (%) (Auto) 5.6 Eosinophils (%) (Auto) 0.1 Basophils (%) (Auto) 0.2 Neutrophils # (Auto) 10.8 Lymphocytes # (Auto) 3.0 Monocytes # (Auto) 0.8 Eosinophils # (Auto) 0.0 Basophils # (Auto) 0.0 CBC Comment DIFF FINAL Differential Comment Prothrombin Time 11.0 Prothromb Time International 1.0 Ratio Activated Partial 23.0 Thromboplast Time Lactic Acid Level 7.8 Date/Time Procedure Status Source Growth 10/15/16 10:00 Aerobic Blood Culture Received Blood Line Pending 10/15/16 10:00 Anaerobic Blood Culture Received Blood Line Pending Result Diagram: 10/15/16 1000 10/13/16 0941 Assessment and Plan Assessment and Plan Assessment: 1. Cardiopulmonary Arrest. 2. Rate related myocardial ischemia. 3. Respiratory Failure. 4. Lactic acidosis. 5. S/P kyphoplasty T12 for intractable pain. Plan: 1. PRVC vent mode. 2. Levophed to keep SBP > 90. 3. Check Mag, Phos, K Trop. 4. Confirm correction of lactic acidosis. 5. SCDs. 6. Protonix. 7. ABG after 30 mins. 8. CVP. Overall impression: Patient sustained cardiopulmonary arrest and is critically ill after initial resuscitation. She has evidence of impaired perfusion and will require ongoing corrective care. Critical care 38 mins Prasanna Dowling MD Oct 15, 2016 10:58
[2016-10-15] MEDS: LISINOPRIL 20 MG TAB PO SCH (11:00)
[2016-10-15 11:11] LABS: CKMB 4.4 NG/ML (0.5-3.6)
--- NOTE | 2016-10-15 11:19 | RADRPT ---
EXAM DATE/TIME: 10/15/2016 10:42 [place] COMPARISON: No previous studies available for comparison. INDICATIONS : Central line placement. MEDICAL HISTORY : None. SURGICAL HISTORY : Kyphoplasty. ENCOUNTER: Initial ACUITY: 4 - 6 days PAIN SCORE: Non-responsive. LOCATION: chest FINDINGS: Endotracheal tube is present with tip about a centimeter above the diane. A nasogastric tube coils i n the cervical esophagus. A right subclavian central line is present with tip extending to the SVC. T here is no evidence of pneumothorax or other complication of placement. The right hilum is prominent. There is loss of concavity of the AP window region. Hilar and/or mediastinal adenopathy is not exclu ded. Patchy bilateral parenchymal infiltrates are present, most notably at the left lung base and in the right perihilar region. Small effusions are present. There has been previous kyphoplasty at T12. There are degenerative changes in the spine and shoulders. There is deformity of the proximal right h umeral shaft which may be posttraumatic or related to the presence of a bone lesion. CONCLUSION: Satisfactory central line positioning. No pneumothorax. Nasogastric tube should be repositioned. Abnormal chest as outlined above Sumit Eddy MD on October 15, 2016 at 11:14 Board Certified Radiologist. This report was verified electronically.
[2016-10-15] MEDS: PROPOFOL 1000 MG/100 ML INJ 100 ML IV SCH ×2 (11:22→23:50)
[2016-10-15] MEDS: CALCITONIN SALM 200 UNIT/SPRAY 3.7 ML BTLN NASAL SCH (11:30)
[2016-10-15] MEDS: SODIUM CHLORIDE 0.9% FLUSH 5 ML FLUSH IVF SCH ×2 (11:30→20:51)
[2016-10-15] MEDS: ATENOLOL 50 MG TAB PO SCH (11:30)
--- NOTE | 2016-10-15 11:31 | PD.PROCEDR ---
Procedure Note Procedure Central Line Procedure Note Right subclavian triple-lumen catheter Diagnosis: Status post PEA arrest Indications: Need for highly potent vasoactive substances Consent: Emergent Anesthesia: None Description of the Procedure: The patient was placed in the supine, mild- Trendelenburg position. The area was prepped and draped sterilely. A 19g needle was inserted under negative pressure aspiration and dark venous blood was obtained. A guidewire was inserted easily without resistance. A small incision was made using a #11 blade. Using a modified Seldinger technique, the dilator and 7 Serbian, 20 cm catheter were advanced over the guidewire without resistance. All ports were aspirated and flushed, and had brisk blood return. The line was secured at 18 cm at the skin using 2-0 silk interrupted sutures. A Biopatch and Transparent sterile dressing were applied. There were no immediate complications noted. There was minimal EBL. The patient tolerated the procedure well. Ultrasound guidance was not used for this procedure A Chest x-ray has been ordered. I personally performed the procedure. Aldo Manzano MD Oct 15, 2016 11:31
--- NOTE | 2016-10-15 11:35 | PD.PROCEDR ---
Procedure Note Procedure Procedure: Arterial Line Placement Left brachial arterial line placement Diagnosis: Status post PEA arrest Indications: Need for beat to beat hemodynamic monitoring Consent: Emergent Description of the Procedure: The left wrist was prepped and draped sterilely. Ultrasound guidance was used to identify the left brachial artery. The anatomy of the left arm was normal. Under direct real-time ultrasound visualization, The artery was located and a needle was advanced into the artery. A 20 gauge, 12 cm catheter was advanced into the artery using a modified Seldinger technique. The catheter was sutured to the skin and a sterile dressing was applied. The catheter was connected to a pressure transducer and an arterial waveform was noted. There were no immediate complications noted. There was minimal EBL. I personally performed the procedure. Aldo Manzano MD Oct 15, 2016 11:35
--- NOTE | 2016-10-15 11:35 | PD.PROCEDR ---
Procedure Note Procedure CPR procedure note Presenting rhythm: PEA arrest Event Details: I was present for the entire code. Please see separate note for details. Present rhythm was PEA arrest likely secondary to acute hypoxemia. Procedure Description: Arrived at [facility]. Followed ACLS guidelines. See code sheet for details. I was personally present for the entire CPR event. Aldo Manzano MD Oct 15, 2016 11:35
[2016-10-15 11:40] LABS: BLOOD GAS BASE EXCESS -5.4 mmol/L (-2-2); BLOOD GAS HCO3 20 mmol/L (22-26); BLOOD GAS METHEMOGLOBIN 0.8 % (0-2); BLOOD GAS O2 HGB SATURATION 98 % (90-100); BLOOD GAS OXYGEN CONTENT 15.9 Vol % (12.0-20.0); BLOOD GAS PCO2 41 mmHg (38-42); BLOOD GAS PO2 451 mmHg (61-120); BLOOD GAS TOTAL HGB 10.7 G/DL (12.0-16.0); CRITICAL VALUE NO; OXYGEN DEVICE VENTILATOR; TEMP CORR TO 98.6
[2016-10-15 11:43] LABS: DRAW SITE ART LINE; FIO2 100 %; STAT NO; VENT SETTINGS SEE COMMENTS
--- NOTE | 2016-10-15 12:50 | HHI.NSPN ---
(Karley Adame) Note Status Status: Progress Note (Karley Adame) Interval History Interval History Ms. Suárez is a 89 y/o female underwent T12 Kyphoplasty yesterday afternoon 10/14 8: found to be in distress in this am with food in her mouth, then worsened with cardiopulmonary arrest, [facility] initiated and patient with return of circulation after one round of ACLS (Karley Adame) Labs, Micro, & Vital Signs Results Date Time Temp Pulse Resp B/P Pulse Ox O2 Delivery O2 Flow Rate FiO2 10/15/16 10:46 0 100 10/15/16 10:00 100 100 10/15/16 08:49 98.1 76 19 180/73 98 10/15/16 08:41 95 Nasal Cannula 2.00 10/15/16 05:55 97.8 76 20 148/62 96 10/15/16 01:31 98.1 71 19 124/65 93 10/14/16 21:30 97.7 76 20 130/76 98 10/14/16 20:13 94 Nasal Cannula 2.00 10/14/16 18:47 97.5 69 18 148/67 94 10/14/16 17:30 69 16 145/65 96 Nasal Cannula 2 10/14/16 17:15 69 16 147/65 98 Nasal Cannula 2 10/14/16 17:00 71 16 145/64 99 Nasal Cannula 2 10/14/16 16:45 73 16 149/62 98 Nasal Cannula 2 10/14/16 16:30 80 16 149/70 96 Nasal Cannula 2 10/14/16 16:17 98.5 104 16 189/81 97 Nasal Cannula 2 10/15/16 07:00 Intake Total 1893 ml Output Total 5 ml Balance 1888 ml Constitutional Vital Signs Date Time Temp Pulse Resp B/P Pulse Ox O2 Delivery O2 Flow Rate FiO2 10/15/16 10:46 0 100 10/15/16 10:00 100 100 10/15/16 08:49 98.1 76 19 180/73 98 10/15/16 08:41 95 Nasal Cannula 2.00 10/15/16 05:55 97.8 76 20 148/62 96 10/15/16 01:31 98.1 71 19 124/65 93 10/14/16 21:30 97.7 76 20 130/76 98 10/14/16 20:13 94 Nasal Cannula 2.00 10/14/16 18:47 97.5 69 18 148/67 94 10/14/16 17:30 69 16 145/65 96 Nasal Cannula 2 10/14/16 17:15 69 16 147/65 98 Nasal Cannula 2 10/14/16 17:00 71 16 145/64 99 Nasal Cannula 2 10/14/16 16:45 73 16 149/62 98 Nasal Cannula 2 10/14/16 16:30 80 16 149/70 96 Nasal Cannula 2 10/14/16 16:17 98.5 104 16 189/81 97 Nasal Cannula 2 10/15/16 07:00 Intake Total 1893 ml Output Total 5 ml Balance 1888 ml (Karley Adame) Review of Systems/Exam Exam Ms. Suárez is intubated and currently well sedated. No eye opening, not following commands CN: pupils 3 mm b/l. Conjugate gaze (Karley Adame) Medications Current Medications Current Medications Medications (Trade) Dose Ordered Sig/Redd Route PRN Reason Start Time Stop Time Status Last Admin Dose Admin Atenolol (Tenormin) 50 mg DAILY PO 10/13/16 09:00 10/13/16 09:50 Hydrochlorothiazide (Hydrodiuril) 25 mg DAILY PO 10/13/16 09:00 10/13/16 09:50 Lisinopril (Prinivil) 20 mg DAILY PO 10/13/16 09:00 10/13/16 09:50 Pravastatin Sodium 20 mg 20 mg DAILY PO 10/13/16 09:00 10/13/16 09:50 Potassium Chloride/Sodium Chloride (NS + KCl 20 Meq Inj) 1,000 ml @ 50 mls/hr Q20H IV 10/14/16 18:00 10/15/16 04:16 IV Flush (NS Flush) 2 ml UNSCH PRN IVF FLUSH AFTER USING IV ACCESS 10/14/16 16:15 IV Flush 2 ml 2 ml BID IVF 10/14/16 21:00 10/14/16 21:00 Cefazolin Sodium/ Dextrose (Ancef 2 Gm Premix) 50 ml @ 100 mls/hr Q8H IV 10/14/16 22:00 10/15/16 14:29 10/15/16 05:44 Acetaminophen/ Hydrocodone Bitart ([place] 10-325 Mg) 1 tab Q4H PRN PO PAIN SCALE 1 TO 5 10/14/16 16:15 Acetaminophen/ Hydrocodone Bitart ([place] 10-325 Mg) 2 tab Q4H PRN PO PAIN SCALE 6 TO 10 10/14/16 16:15 Miscellaneous Information ALL NURSING DEPARTME... UNSCH PRN .XX SEE LABEL COMMENTS 10/14/16 16:12 10/15/16 16:11 Acetaminophen (Tylenol) 650 mg Q6H PRN PO FEVER >101F 10/15/16 10:45 Morphine Sulfate (Morphine Inj) 2 mg Q2H PRN IV PAIN SCALE 6 TO 10 10/15/16 10:45 Pantoprazole Sodium (Protonix Inj) 40 mg DAILY IV 10/16/16 09:00 Miscellaneous Information 1 Q361D XX 10/15/16 10:45 Chlorhexidine Gluconate (Chlorhexidine 2% Cloth) 3 pack Taper DAILY@04 TOP 10/16/16 04:00 10/12/17 03:59 Chlorhexidine Gluconate (Chlorhexidine 2% Cloth) 3 pack UNSCH PRN TOP HYGIENIC CARE 10/15/16 10:45 Senna/Docusate Sodium (Aylin-Colace) 1 tab BID PO 10/15/16 21:00 Magnesium Hydroxide (Milk Of Magnesia Liq) 30 ml Q12H PRN PO MILD - MODERATE CONSTIPATION 10/15/16 10:45 Sennosides (Senokot) 17.2 mg Q12H PRN PO MODERATE - SEVERE CONSTIPATION 10/15/16 10:45 Bisacodyl (Dulcolax Supp) 10 mg DAILY PRN RECTAL SEVERE CONSITIPATION 10/15/16 10:45 Lactulose 30 ml 30 ml DAILY PRN PO SEVERE CONSITIPATION 10/15/16 10:45 Propofol (Diprivan 1000 Mg/100ml Inj) 100 ml @ 0 mls/hr TITRATE IV 10/15/16 10:45 10/15/16 11:22 (Karley Adame) Medical Decision Making MDM Remarks 89 y/o female s/p T12 Kyphoplasty 10/14/16 s/p cardiopulmonary arrest this morning 10/15/16 (Karley Adame) Plan Plan Remarks critical care management serial neuro checks follow up neuro examination (Karley Adame) Attending Statement The exam, history, and the medical decision-making described in the above note were completed with the assistance of the mid-level provider. I reviewed and agree with the findings presented. I attest that I had a [id number] encounter with the patient on the same day, and personally performed and documented my assessment and findings in the medical record. (Vijay Burk MD) Karley Adame Oct 15, 2016 12:50 Vijay Burk MD Oct 18, 2016 17:05
[2016-10-15] MEDS: HYDROCHLOROTHIAZIDE 25 MG TAB PO SCH (14:01)
[2016-10-15] MEDS: PRAVASTATIN SOD 20 MG TAB PO SCH (14:01)
--- NOTE | 2016-10-15 17:05 | ECHRPT ---
Indication: s/p code blue CONCLUSIONS The left ventricular systolic function is mildly reduced with an estimated ejection fraction in the range of 45- 50% with septal hypokinesis. Mild concentric left ventricular hypertrophy. Normal left ventricular size. Mild RV enlargement. [id number] mitral valve regurgitation. There is moderate tricuspid regurgitation. The estimated pulmonary arterial pressure is 40 mmHg. Mild aortic valve regurgitation. Mild aortic valve stenosis. BP: 124 / 50 HR: 73 Rhythm: Sinus MEASUREMENTS (Male / Female) Normal Values Technical Quality:Good 2D ECHO LV Diastolic Diameter PLAX 4.4 cm 4.2 - 5.9 / 3.9 - 5.3 cm LV Systolic Diameter PLAX 3.4 cm IVS Diastolic Thickness 1.3 cm 0.6 - 1.0 / 0.6 - 0.9 cm LVPW Diastolic Thickness 1.0 cm 0.6 - 1.0 / 0.6 - 0.9 cm LV Relative Wall Thickness 0.5 LVOT Diameter 1.7 cm M-MODE Aortic Root Diameter MM 2.9 cm LA Systolic Diameter MM 3.9 cm LA Ao Ratio MM 1.3 AV Cusp Separation MM 1.9 cm DOPPLER AV Peak Velocity 294.0 cm/s AV Peak Gradient 34.6 mmHg AV Mean Gradient 25.5 mmHg AV Velocity Time Integral 96.3 cm AI Peak Velocity 390.3 cm/s AI Peak Gradient 60.9 mmHg AI Pressure Half Time 625.3 ms LVOT Peak Velocity 68.6 cm/s LVOT Peak Gradient 1.9 mmHg AV Area Cont Eq pk 0.5 cm MR Peak Velocity 418.5 cm/s MR Peak Gradient 70.1 mmHg Mitral E Point Velocity 80.5 cm/s Mitral A Point Velocity 68.1 cm/s Mitral E to A Ratio 1.2 LV E' Lateral Velocity 4.4 cm/s Mitral E to LV E' Lateral Ratio 18.3 LV E' Septal Velocity 2.6 cm/s Mitral E to LV E' Septal Ratio 30.6 TR Peak Velocity 276.0 cm/s TR Peak Gradient 30.5 mmHg PV Peak Velocity 227.0 cm/s PV Peak Gradient 20.6 mmHg FINDINGS LEFT VENTRICLE The left ventricular systolic function is mildly reduced with an estimated ejection fraction in the range of 45- 50% with septal WMA. Mild concentric left ventricular hypertrophy. Normal left ventricular size. RIGHT VENTRICLE Mild RV enlargement. LEFT ATRIUM The left atrial size is normal. RIGHT ATRIUM The right atrial size is normal. ATRIAL SEPTUM Normal atrial septal thickness without atrial level shunting by limited color doppler interrogation. AORTA The aortic root and proximal ascending aorta are normal in size on limited imaging. MITRAL VALVE [id number] mitral valve regurgitation. AORTIC VALVE Mild aortic valve regurgitation. Mild aortic valve stenosis. TRICUSPID VALVE There is moderate tricuspid regurgitation. The estimated pulmonary arterial pressure is 40 mmHg. PULMONARY VALVE The pulmonary valve is not well visualized. VESSELS The inferior vena cava is normal in size. PERICARDIUM No pericardial effusion. Tiffany Zapata MD, FACC (Electronically Signed) Final Date:15 October 2016 17:04
[2016-10-15 17:12] LABS: BLOOD GAS BASE EXCESS -0.5 mmol/L (-2-2); BLOOD GAS CARBOXYHEMOGLOBIN 1.3 % (0-4); BLOOD GAS HCO3 23 mmol/L (22-26); BLOOD GAS METHEMOGLOBIN 0.7 % (0-2); BLOOD GAS O2 HGB SATURATION 98 % (90-100); BLOOD GAS OXYGEN CONTENT 14.9 Vol % (12.0-20.0); BLOOD GAS PCO2 35 mmHg (38-42); BLOOD GAS PO2 207 mmHg (61-120); BLOOD GAS TOTAL HGB 10.5 G/DL (12.0-16.0); CRITICAL VALUE NO; DRAW SITE ART LINE; FIO2 45 %; OXYGEN DEVICE VENTILATOR; STAT NO; TEMP CORR TO 98.6; ULNAR PULSE PRESENT; VENT SETTINGS PRVC/AC
[2016-10-15] MEDS: DOCUSATE SODIUM 50 MG/SENNA 8.6 MG TAB PO SCH (20:51)
[2016-10-15] MEDS ORDERED: DOPamine 800 MG/D5W PREMIX 500 ML IV SCH (22:30)
[2016-10-16] VITALS (21 sets, daily range): BP systolic 112–126; BP diastolic 44–49; PULSE 63–174; RESP 12–20; TEMP 99–99.7; O2SAT 96–100
[2016-10-16] MEDS: CHLORHEXIDINE GLUCONATE 2 % 1 PACK (2 CLOTHS) TOP SCH (03:30)
[2016-10-16 04:18] LABS: AUTOMATED NEUTROPHIL # 10.5 TH/MM3 (1.8-7.7); BASOPHIL % 0.3 % (0.0-2.0); EOSINOPHIL % 0.3 % (0.0-4.0); HEMATOCRIT 33.2 % (35.0-46.0); HEMO FLAGS DIFF FINAL; LYMPH % 9.6 % (9.0-44.0); LYMPHOCYTE # 1.2 TH/MM3 (1.0-4.8); MEAN CELL VOLUME 82.3 FL (80.0-100.0); MEAN CORPUSCULAR HEMOGLOBIN 27.9 PG (27.0-34.0); MEAN CORPUSCULAR HGB CONC 33.9 % (32.0-36.0); MONO % 7.5 % (0.0-8.0); NEUT % 82.3 % (16.0-70.0); PLATELET COUNT 277 TH/MM3 (150-450); RED BLOOD COUNT 4.03 MIL/MM3 (4.00-5.30); RED CELL DISTRIBUTION WIDTH 14.7 % (11.6-17.2); WHITE BLOOD COUNT 12.8 TH/MM3 (4.0-11.0)
[2016-10-16 04:43] LABS: BICARBONATE 27.1 MEQ/L (21.0-32.0); POTASSIUM 3.7 MEQ/L (3.5-5.1)
[2016-10-16 05:26] LABS: BLOOD GAS BASE EXCESS 1.6 mmol/L (-2-2); BLOOD GAS CARBOXYHEMOGLOBIN 1.5 % (0-4); BLOOD GAS HCO3 23 mmol/L (22-26); BLOOD GAS METHEMOGLOBIN 0.6 % (0-2); BLOOD GAS O2 HGB SATURATION 98 % (90-100); BLOOD GAS OXYGEN CONTENT 15.5 Vol % (12.0-20.0); BLOOD GAS PCO2 22 mmHg (38-42); BLOOD GAS PO2 134 mmHg (61-120); BLOOD GAS TOTAL HGB 11.1 G/DL (12.0-16.0); TEMP CORR TO 98.6
[2016-10-16 05:27] LABS: CRITICAL VALUE YES; OXYGEN DEVICE VENTILATOR
[2016-10-16 05:28] LABS: DRAW SITE ART LINE; FIO2 35 %; STAT NO; VENT SETTINGS PRVC/AC 14/500/+5/
[2016-10-16] MEDS ORDERED: PILL SPLITTER OTHER PRN (07:15)
--- NOTE | 2016-10-16 07:34 | HHI.CCPN ---
Subjective Remarks/Hospital Course 89 y/o woman yesterday underwent T12 kyphoplasty for intractable pain following compression fracture. Procedure was uncomplicated and she did quite well the evening of surgery. Mid-morning today she was found in respiratory distress with food in her mouth by report. This progressed to full cardiac arrest from which she was rapidly resuscitated after 1 round of meds and CPR. Intubated on floor and transported to [facility] where I met her on her arrival. CXR with ET tube at diane - withdrawn 2 cm. CVL good position. NG tube looped in esophagus - repositioned. Initial ECG with ischemia, possibly rate related. Discussed with Cardiology Service by Dr. Manzano. 10/16: Opens eyes and moves limbs spontaneously. Breathes excessively over vent producing alkalosis. Objective Vital Signs Date Time Temp Pulse Resp B/P Pulse Ox O2 Delivery O2 Flow Rate FiO2 10/16/16 06:45 35 10/16/16 06:00 65 10/16/16 04:00 99.0 18 100 10/16/16 03:54 Ventilator 10/16/16 00:00 126/44 10/15/16 08:41 2.00 Intake and Output 10/15/16 10/15/16 10/16/16 08:00 16:00 00:00 Intake Total 1043 ml 458 ml 526 ml Output Total 471 ml 933 ml Balance 1043 ml -13 ml -407 ml Result Diagram: 10/16/16 0400 10/16/16 0400 Other Results Laboratory Tests Test 10/15/16 10/15/16 10/16/16 11:29 16:58 05:06 Blood Gas Puncture Site ART LINE ART LINE ART LINE Blood Gas Patient Temperature 98.6 98.6 98.6 Blood Gas HCO3 20 mmol/L 23 mmol/L 23 mmol/L (22-26) (22-26) (22-26) Blood Gas Base Excess -5.4 mmol/L -0.5 mmol/L 1.6 mmol/L (-2-2) (-2-2) (-2-2) Blood Gas Oxygen Saturation 98 % (90-100) 98 % (90-100) 98 % (90-100) Arterial Blood pH 7.31 7.44 7.63 (7.380-7.420) (7.380-7.420) (7.380-7.420) Arterial Blood Partial 41 mmHg (38-42) 35 mmHg (38-42) 22 mmHg (38-42) Pressure CO2 Arterial Blood Partial 451 mmHg 207 mmHg 134 mmHg Pressure O2 (61-120) (61-120) (61-120) Arterial Blood Oxygen Content 15.9 Vol % 14.9 Vol % 15.5 Vol % (12.0-20.0) (12.0-20.0) (12.0-20.0) Arterial Blood 1.0 % (0-4) 1.3 % (0-4) 1.5 % (0-4) Carboxyhemoglobin Arterial Blood Methemoglobin 0.8 % (0-2) 0.7 % (0-2) 0.6 % (0-2) Blood Gas Hemoglobin 10.7 G/DL 10.5 G/DL 11.1 G/DL (12.0-16.0) (12.0-16.0) (12.0-16.0) Oxygen Delivery Device VENTILATOR VENTILATOR VENTILATOR Blood Gas Ventilator Setting SEE COMMENTS PRVC/AC PRVC/AC 14/500/+5/ Blood Gas Inspired Oxygen 100 % 45 % 35 % Objective Remarks Gen: Largely unresponsive. Head: Atraumatic, normal. Neck: Supple, orally intubated. Lungs: Clear, no crackles, no wheezes. Heart: NL s1S2, 3/6 systolic murmur, - JVD. Abdomen: Soft, mildly distended, no guarding. Extremities: Warm, well perfused. Neuro: Pupils 3 mm left n no response, ? cataract surgery. Right pupil 2 mm, reacts. Moves 4 limbs spontaneously. DTRs patella 2+ craig. Positive cough and gag. Procedures 10/14/2016 T12 Kyphoplasty A/P Assessment and Plan Assessment: 1. Cardiopulmonary Arrest. 2. Rate related myocardial ischemia. 3. Respiratory Failure. 4. Lactic acidosis. 5. S/P kyphoplasty T12 for intractable pain. 6. NSTEMI 7. Systolic Murmur Plan: 1. PRVC vent mode. 2. Levophed to keep SBP > 90. 3. Check Mag, Phos, K Trop. 4. Confirm correction of lactic acidosis. 5. SCDs. 6. Protonix. 7. ABG after 30 mins. 8. CVP. 9. Cardiac ECHO. Overall impression: Patient sustained cardiopulmonary arrest and remains critically ill after successful resuscitation. Cause of arrest remains unclear. Critical care 35 mins Prasanna Dowling MD Oct 16, 2016 07:34
[2016-10-16] MEDS: CALCITONIN SALM 200 UNIT/SPRAY 3.7 ML BTLN NASAL SCH (09:00)
[2016-10-16] MEDS: SODIUM CHLORIDE 0.9% FLUSH 5 ML FLUSH IVF SCH ×2 (09:00→21:00)
[2016-10-16] MEDS: PANTOPRAZOLE SODIUM 40 MG VIAL IV SCH (09:10)
[2016-10-16] MEDS: DOCUSATE SODIUM 50 MG/SENNA 8.6 MG TAB PO SCH ×2 (09:10→22:45)
[2016-10-16] MEDS: LACTULOSE SYRUP 20 GM/30 ML CUP PO PRN (09:10)
[2016-10-16] MEDS: HYDROCHLOROTHIAZIDE 25 MG TAB PO SCH (09:10)
[2016-10-16] MEDS: PRAVASTATIN SOD 20 MG TAB PO SCH (09:10)
[2016-10-16] MEDS: ATENOLOL 50 MG TAB PO SCH (09:11)
[2016-10-16] MEDS: LISINOPRIL 10 MG TAB PO SCH (09:11)
[2016-10-16] MEDS ORDERED: ICU - POTASSIUM PHOSPHATE 30 MMOL/NS 250 ML IV PRN ×2 (09:45)
[2016-10-16] MEDS ORDERED: ICU - POTASSIUM CHLORIDE/AQUEOUS SOLN 20 MEQ/100 ML IVPB IV PRN (09:45)
[2016-10-16] MEDS ORDERED: ICU - CALL ORDERING PHYSICIAN PRN (09:45)
[2016-10-16] MEDS ORDERED: POTASSIUM CHLORIDE 25 MEQ EFFERVESCENT TAB PO PRN (09:45)
[2016-10-16] MEDS ORDERED: ICU - MAGNESIUM SULFATE 2 GM/NS 100 ML IV PRN ×2 (09:45)
[2016-10-16] MEDS ORDERED: ICU - SODIUM PHOSPHATE 30 MMOL/NS 250 ML IV PRN ×2 (09:45)
[2016-10-16] MEDS ORDERED: ICU - POTASSIUM PHOSPHATE MONOBASIC 500 MG TAB PO PRN (09:45)
[2016-10-16] MEDS ORDERED: ICU - MAGNESIUM SULFATE 4 GM/NS 100 ML IV PRN ×2 (09:45)
[2016-10-16] MEDS ORDERED: ICU - MAGNESIUM OXIDE 400 MG TAB PO PRN (09:45)
[2016-10-16] MEDS ORDERED: ICU - POTASSIUM CHLORIDE/AQUEOUS SOLN 40 MEQ/100 ML IVPB IV PRN (09:45)
[2016-10-16] MEDS ORDERED: ICU - D/C ICU ELECTROLYTE ORDERS PRN (09:45)
[2016-10-16] MEDS ORDERED: MIDAZOLAM HCL 5 MG/ML VIAL (1 ML) ONE (11:15)
--- NOTE | 2016-10-16 11:29 | EKG ---
Date Performed: 10/15/2016 Time Performed: 10:01:56 PTAGE: 89 years EKG: Sinus tachycardia with sinus arrhythmia. Left axis deviation Left bundle branch block Abnor mal ECG PREVIOUS TRACING 10/14/16 Compared to the prior tracing, heart rate is up, and ST depression is increased, probably due to the left bundle branch block. DOCTOR: Maynor Davies Interpretating Date/Time 10/16/2016 11:27:17
[2016-10-16] MEDS: PROPOFOL 1000 MG/100 ML INJ 100 ML IV SCH (11:42)
[2016-10-16 11:45] LABS: BLOOD GAS BASE EXCESS 0.7 mmol/L (-2-2); BLOOD GAS HCO3 25 mmol/L (22-26); BLOOD GAS METHEMOGLOBIN 0.8 % (0-2); BLOOD GAS O2 HGB SATURATION 98 % (90-100); BLOOD GAS OXYGEN CONTENT 19.5 Vol % (12.0-20.0); BLOOD GAS PCO2 38 mmHg (38-42); BLOOD GAS PO2 160 mmHg (61-120); BLOOD GAS TOTAL HGB 14.1 G/DL (12.0-16.0); CRITICAL VALUE NO; DRAW SITE ART LINE; FIO2 35 %; NUMBER OF ARTERIAL PUNCTURES 0; OXYGEN DEVICE VENTILATOR; STAT NO; TEMP CORR TO 98.6; ULNAR PULSE PRESENT; VENT SETTINGS PRVC12/400/1.4/+5
[2016-10-16] MEDS ORDERED: AMIODARONE INJ 900 MG in D5W 500 ML (EXCEL BAG) 482 ML IV SCH (11:45)
[2016-10-16] MEDS ORDERED: MIDAZOLAM HCL 2 MG/2 ML VIAL IV PUSH ONE (12:00)
[2016-10-16] MEDS ORDERED: AMIODARONE INJ 150 MG in DEXTROSE 5% IN WATER 100ML INJ 97 ML IV ONE ×2 (12:00)
--- NOTE | 2016-10-16 12:14 | HHI.NSPN ---
(Karley Adame) Note Status Status: Progress Note (Karley Adame) Interval History Interval History Ms. Suárez is a 89 y/o female underwent T12 Kyphoplasty yesterday afternoon 10/14: found to be in distress in this am with food in her mouth, then worsened with cardiopulmonary arrest, Code Blue initiated and patient with return of circulation after one round of ACLS 10/16: intubated but opens eyes, follows simple commands. currently in A. Fib - plan to cardiovert today (Karley Adame) Labs, Micro, & Vital Signs Results Date Time Temp Pulse Resp B/P Pulse Ox O2 Delivery O2 Flow Rate FiO2 10/16/16 11:25 96 10/16/16 07:51 100 35 10/16/16 06:45 35 10/16/16 06:00 65 10/16/16 04:00 76 10/16/16 04:00 35 10/16/16 04:00 99.0 76 18 100 10/16/16 03:54 100 Ventilator 10/16/16 03:50 100 35 10/16/16 02:00 63 10/16/16 00:09 98 35 10/16/16 00:00 66 10/16/16 00:00 99.7 66 14 126/44 100 10/15/16 22:00 66 10/15/16 20:00 98.6 86 16 126/50 100 10/15/16 20:00 86 10/15/16 19:48 100 35 10/15/16 16:00 98.8 72 16 125/50 100 10/15/16 15:00 64 10/15/16 14:23 100 35 10/16/16 07:00 Intake Total 1368 ml Output Total 2154 ml Balance -786 ml Constitutional Vital Signs Date Time Temp Pulse Resp B/P Pulse Ox O2 Delivery O2 Flow Rate FiO2 10/16/16 11:25 96 10/16/16 07:51 100 35 10/16/16 06:45 35 10/16/16 06:00 65 10/16/16 04:00 76 10/16/16 04:00 35 10/16/16 04:00 99.0 76 18 100 10/16/16 03:54 100 Ventilator 10/16/16 03:50 100 35 10/16/16 02:00 63 10/16/16 00:09 98 35 10/16/16 00:00 66 10/16/16 00:00 99.7 66 14 126/44 100 10/15/16 22:00 66 10/15/16 20:00 98.6 86 16 126/50 100 10/15/16 20:00 86 10/15/16 19:48 100 35 10/15/16 16:00 98.8 72 16 125/50 100 10/15/16 15:00 64 10/15/16 14:23 100 35 10/16/16 07:00 Intake Total 1368 ml Output Total 2154 ml Balance -786 ml (Karley Adame) Review of Systems/Exam Exam Ms. Suárez is intubated opens eyes, follows simple commands Motor: moved x 4 extremities to command (Karley Admae) Medications Current Medications Current Medications Medications (Trade) Dose Ordered Sig/Redd Route PRN Reason Start Time Stop Time Status Last Admin Dose Admin Hydrochlorothiazide (Hydrodiuril) 25 mg DAILY PO 10/13/16 09:00 10/16/16 09:10 Pravastatin Sodium (Pravachol) 20 mg DAILY PO 10/13/16 09:00 10/16/16 09:10 IV Flush (NS Flush) 2 ml UNSCH PRN IVF FLUSH AFTER USING IV ACCESS 10/14/16 16:15 IV Flush (NS Flush) 2 ml BID IVF 10/14/16 21:00 10/16/16 09:00 Acetaminophen/ Hydrocodone Bitart ([place] 10-325 Mg) 1 tab Q4H PRN PO PAIN SCALE 1 TO 5 10/14/16 16:15 Acetaminophen/ Hydrocodone Bitart ([place] 10-325 Mg) 2 tab Q4H PRN PO PAIN SCALE 6 TO 10 10/14/16 16:15 Acetaminophen (Tylenol) 650 mg Q6H PRN PO FEVER >101F 10/15/16 10:45 Morphine Sulfate (Morphine Inj) 2 mg Q2H PRN IV PAIN SCALE 6 TO 10 10/15/16 10:45 Pantoprazole Sodium (Protonix Inj) 40 mg DAILY IV 10/16/16 09:00 10/16/16 09:10 Miscellaneous Information 1 Q361D XX 10/15/16 10:45 Chlorhexidine Gluconate (Chlorhexidine 2% Cloth) 3 pack Taper DAILY@04 TOP 10/16/16 04:00 10/12/17 03:59 10/16/16 03:30 Chlorhexidine Gluconate (Chlorhexidine 2% Cloth) 3 pack UNSCH PRN TOP HYGIENIC CARE 10/15/16 10:45 Senna/Docusate Sodium (Aylin-Colace) 1 tab BID PO 10/15/16 21:00 10/16/16 09:10 Magnesium Hydroxide (Milk Of Magnbarbra Liq) 30 ml Q12H PRN PO MILD - MODERATE CONSTIPATION 10/15/16 10:45 Sennosides (Senokot) 17.2 mg Q12H PRN PO MODERATE - SEVERE CONSTIPATION 10/15/16 10:45 Bisacodyl (Dulcolax Supp) 10 mg DAILY PRN RECTAL SEVERE CONSITIPATION 10/15/16 10:45 10/16/16 09:10 Lactulose 30 ml 30 ml DAILY PRN PO SEVERE CONSITIPATION 10/15/16 10:45 10/16/16 09:10 Propofol 100 ml @ 0 mls/hr TITRATE IV 10/15/16 10:45 10/16/16 11:42 Dopamine HCl/ Dextrose (DOPamine INJ PREMIX) 500 ml @ 0 mls/hr TITRATE IV 10/15/16 22:30 Atenolol (Tenormin) 25 mg DAILY PO 10/16/16 09:00 10/16/16 09:11 Lisinopril (Prinivil) 10 mg DAILY PO 10/16/16 09:00 10/16/16 09:11 Miscellaneous (Pill Splitter) 1 ea UNSCH PRN OTHER SEE LABEL COMMENTS 10/16/16 07:15 Miscellaneous Information D/C ICU ELECTROLYTE ORDERS... UNSCH PRN .XX SEE DOSE INSTRUCTIONS 10/16/16 09:45 Miscellaneous Information ICU - CALL ORDERING PHYSIC... UNSCH PRN .XX SEE DOSE INSTRUCTIONS 10/16/16 09:45 Potassium Chloride (KCl 40 Meq Premix Inj) 100 ml @ 25 mls/hr UNSCH PRN IV ELECTROLYTE REPLACEMENT 10/16/16 09:45 Potassium Bicarb/ Potassium Chloride 50 meq 50 meq UNSCH PRN PO ELECTROLYTE REPLACEMENT 10/16/16 09:45 Potassium Chloride 100 ml @ 50 mls/hr UNSCH PRN IV ELECTROLYTE REPLACEMENT 10/16/16 09:45 Magnesium Sulfate 4 gm/Sodium Chloride 108 ml @ 54 mls/hr UNSCH PRN IV ELECTROLYTE REPLACEMENT 10/16/16 09:45 Magnesium Sulfate/ Sodium Chloride (Magnesium Sulfate Inj/NS Inj) 104 ml @ 52 mls/hr UNSCH PRN IV ELECTROLYTE REPLACEMENT 10/16/16 09:45 Magnesium Oxide 800 mg 800 mg UNSCH PRN PO ELECTROLYTE REPLACEMENT 10/16/16 09:45 Sodium Phosphate/ Sodium Chloride (Sodium Phosphate Inj/NS 250 ml Inj) 260 ml @ 43.333 mls/ hr UNSCH PRN IV ELECTROLYTE REPLACEMENT 10/16/16 09:45 Potassium Phosphate 2000 mg 2,000 mg UNSCH PRN PO ELECTROLYTE REPLACEMENT 10/16/16 09:45 Potassium Phosphate 30 mmol/ Sodium Chloride 260 ml @ 43.333 mls/ hr UNSCH PRN IV ELECTROLYTE REPLACEMENT 10/16/16 09:45 Amiodarone HCl/ Dextrose (Cordarone Inj/ D5W ([place]) Inj) 250 ml @ 0 mls/hr CONTINUOUS IV 10/16/16 12:00 (Karley Adame) Medical Decision Making MDM Remarks 89 y/o female s/p T12 Kyphoplasty 10/14/16 s/p cardiopulmonary arrest 10/15/16 with returns of circulation following one round of ACLS acute A. Fib with RVR (Karley Adame) Plan Plan Remarks cont critical care management - to cardiovert back to NSR, then wean vent to extubated, poss by tomorrow ok to start anticoagulation or antiplatelet if needed from standpoint neuro exam improved, will follow (Karley Adame) Attending Statement The exam, history, and the medical decision-making described in the above note were completed with the assistance of the mid-level provider. I reviewed and agree with the findings presented. I attest that I had a [id number] encounter with the patient on the same day, and personally performed and documented my assessment and findings in the medical record. (Vijay Burk MD) Karley Adame Oct 16, 2016 12:14 Vijay Burk MD Oct 18, 2016 22:11
[2016-10-16] MEDS: AMIODARONE INJ 450 MG in D5W (EXCEL BAG) 241 ML IV SCH ×2 (12:30→21:04)
[2016-10-16 12:34] LABS: BICARBONATE 25.9 MEQ/L (21.0-32.0); MAGNESIUM 2.1 MG/DL (1.5-2.5); POTASSIUM 3.6 MEQ/L (3.5-5.1)
[2016-10-16] MEDS: ACETAMINOPHEN/HYDROcodone 325 MG/10 MG TAB PO PRN (16:49)
[2016-10-17] VITALS (17 sets, daily range): BP systolic 114–159; BP diastolic 33–72; PULSE 51–87; RESP 12–25; TEMP 97.8–99.5; O2SAT 92–100
[2016-10-17] MEDS: PROPOFOL 1000 MG/100 ML INJ 100 ML IV SCH (00:54)
--- NOTE | 2016-10-17 04:12 | RADRPT ---
EXAM DATE/TIME: 10/17/2016 03:26 [place] COMPARISON: CHEST SINGLE AP, October 15, 2016, 10:42. INDICATIONS : Respiratory failure post cardiac arrest. MEDICAL HISTORY : None. SURGICAL HISTORY : Kyphoplasty. ENCOUNTER: Subsequent ACUITY: 1 week PAIN SCORE: Non-responsive. LOCATION: Bilateral chest FINDINGS: Tiny right and small left pleural effusions persist not significantly changed. Mild bibasilar atelect asis also relatively stable. No pneumothorax. Heart size stable, normal. Endotracheal tube tip is approximately 4 cm above the diane. There is a nasogastric tube coursing in to the stomach. Right subclavian central venous catheter again seen, tip at the atriocaval junction.C ONCLUSION: No significant change trace right and small left pleural effusions with mild bibasilar atelectasis. L mike and tubes as above. Nasogastric tube now courses into the stomach. Sumit Linn MD on October 17, 2016 at 4:09 Board Certified Radiologist. This report was verified electronically.
[2016-10-17 04:30] LABS: BLOOD GAS BASE EXCESS 2.7 mmol/L (-2-2); BLOOD GAS CARBOXYHEMOGLOBIN 1.4 % (0-4); BLOOD GAS HCO3 26 mmol/L (22-26); BLOOD GAS METHEMOGLOBIN 0.8 % (0-2); BLOOD GAS O2 HGB SATURATION 97 % (90-100); BLOOD GAS OXYGEN CONTENT 15.1 Vol % (12.0-20.0); BLOOD GAS PCO2 36 mmHg (38-42); BLOOD GAS PO2 134 mmHg (61-120); BLOOD GAS TOTAL HGB 10.9 G/DL (12.0-16.0); CRITICAL VALUE NO; DRAW SITE ART LINE; FIO2 35 %; OXYGEN DEVICE VENTILATOR; STAT NO; TEMP CORR TO 98.6; VENT SETTINGS AC/12/400/PEEP5
[2016-10-17] MEDS: CHLORHEXIDINE GLUCONATE 2 % 1 PACK (2 CLOTHS) TOP SCH (05:10)
[2016-10-17 05:32] LABS: BICARBONATE 27.4 MEQ/L (21.0-32.0); MAGNESIUM 1.9 MG/DL (1.5-2.5); POTASSIUM 3.4 MEQ/L (3.5-5.1)
--- NOTE | 2016-10-17 07:40 | HHI.CCPN ---
Subjective Remarks/Hospital Course 89 y/o woman yesterday underwent T12 kyphoplasty for intractable pain following compression fracture. Procedure was uncomplicated and she did quite well the evening of surgery. Mid-morning today she was found in respiratory distress with food in her mouth by report. This progressed to full cardiac arrest from which she was rapidly resuscitated after 1 round of meds and CPR. Intubated on floor and transported to [facility] where I met her on her arrival. CXR with ET tube at diane - withdrawn 2 cm. CVL good position. NG tube looped in esophagus - repositioned. Initial ECG with ischemia, possibly rate related. Discussed with Cardiology Service by Dr. Manzano. 10/16: Opens eyes and moves limbs spontaneously. Breathes excessively over vent producing alkalosis. 10/17: Alert. Back in NSR. Gas exchange acceptable and CXR clearing. Objective Vital Signs Date Time Temp Pulse Resp B/P Pulse Ox O2 Delivery O2 Flow Rate FiO2 10/17/16 06:00 62 10/17/16 04:08 100 35 10/17/16 04:00 99.0 12 137/44 10/16/16 19:00 Mechanical Ventilator 10/15/16 08:41 2.00 Intake and Output 10/16/16 10/16/16 10/17/16 08:00 16:00 00:00 Intake Total 384 ml 392 ml 909 ml Output Total 750 ml 450 ml 775 ml Balance -366 ml -58 ml 134 ml Result Diagram: 10/16/16 0400 10/17/16 0445 Other Results Laboratory Tests Test 10/16/16 10/17/16 10:55 04:16 Blood Gas Puncture Site ART LINE ART LINE Blood Gas Patient Temperature 98.6 98.6 Blood Gas HCO3 25 mmol/L 26 mmol/L (22-26) (22-26) Blood Gas Base Excess 0.7 mmol/L 2.7 mmol/L (-2-2) (-2-2) Blood Gas Oxygen Saturation 98 % (90-100) 97 % (90-100) Arterial Blood pH 7.42 7.47 (7.380-7.420) (7.380-7.420) Arterial Blood Partial 38 mmHg (38-42) 36 mmHg (38-42) Pressure CO2 Arterial Blood Partial 160 mmHg 134 mmHg Pressure O2 (61-120) (61-120) Arterial Blood Oxygen Content 19.5 Vol % 15.1 Vol % (12.0-20.0) (12.0-20.0) Arterial Blood 1.0 % (0-4) 1.4 % (0-4) Carboxyhemoglobin Arterial Blood Methemoglobin 0.8 % (0-2) 0.8 % (0-2) Blood Gas Hemoglobin 14.1 G/DL 10.9 G/DL (12.0-16.0) (12.0-16.0) Oxygen Delivery Device VENTILATOR VENTILATOR Blood Gas Ventilator Setting PRVC12/400/1.4/+5 AC/12/400/PEEP5 Blood Gas Inspired Oxygen 35 % 35 % Objective Remarks Gen: Anxious. Head: Atraumatic, normal. Neck: Supple, orally intubated. Lungs: Clear, no crackles, no wheezes. Heart: NL s1S2, 3/6 systolic murmur, - JVD. Abdomen: Soft, mildly distended, no guarding. BS active. Extremities: Warm, well perfused. Neuro: Pupils 3 mm left n no response, ? cataract surgery. Right pupil 2 mm, reacts. Moves 4 limbs spontaneously. DTRs patella 2+ craig. Positive cough and gag. Tracks with eyes. Procedures 10/14/2016 T12 Kyphoplasty A/P Assessment and Plan Assessment: 1. Cardiopulmonary Arrest. 2. Rate related myocardial ischemia. 3. Respiratory Failure. 4. Lactic acidosis. 5. S/P kyphoplasty T12 for intractable pain. 6. NSTEMI 7. Systolic Murmur Plan: 1. Wean to extubate. 2. Dopamine to keep SBP > 90. 3. Replace Mag, Phos, K Trop. 4. Elect protocol. 5. SCDs. 6. Protonix. 7. ABG am 8. CVP. 9. Cardiac ECHO -> done. 10. Mobilize. Overall impression: Patient sustained cardiopulmonary arrest, cause of arrest remains unclear. A-fib yesterday, converted on amiodarone. Prasanna Dowling MD Oct 17, 2016 07:40
[2016-10-17] MEDS: LACTULOSE SYRUP 20 GM/30 ML CUP PO PRN (08:39)
[2016-10-17] MEDS: DOCUSATE SODIUM 50 MG/SENNA 8.6 MG TAB PO SCH ×2 (08:40→20:55)
[2016-10-17] MEDS: PANTOPRAZOLE SODIUM 40 MG VIAL IV SCH (08:40)
[2016-10-17] MEDS: HYDROCHLOROTHIAZIDE 25 MG TAB PO SCH (08:40)
[2016-10-17] MEDS: LISINOPRIL 10 MG TAB PO SCH (08:40)
[2016-10-17] MEDS: ACETAMINOPHEN/HYDROcodone 325 MG/10 MG TAB PO PRN (08:40)
[2016-10-17] MEDS: PRAVASTATIN SOD 20 MG TAB PO SCH (08:40)
[2016-10-17] MEDS: CALCITONIN SALM 200 UNIT/SPRAY 3.7 ML BTLN NASAL SCH (08:41)
[2016-10-17] MEDS: SODIUM CHLORIDE 0.9% FLUSH 5 ML FLUSH IVF SCH ×2 (08:41→20:55)
[2016-10-17] MEDS: ATENOLOL 50 MG TAB PO SCH (09:00)
[2016-10-17] MEDS: AMIODARONE INJ 450 MG in D5W (EXCEL BAG) 241 ML IV SCH (11:31)
--- NOTE | 2016-10-17 14:21 | EKG ---
Date Performed: 10/16/2016 Time Performed: 11:03:34 PTAGE: 89 years EKG: Atrial fibrillation with uncontrolled ventricular response. Left axis deviation Left bundle branch block Abnormal ECG PREVIOUS TRACING : 10/15/2016 10.01 Since previous tracing, there is a rhythm change from sinus tachycardia to atrial fibrillation. Heart rate is faster. DOCTOR: Franko Lozoya Interpretating Date/Time 10/17/2016 14:20:40
--- NOTE | 2016-10-17 15:10 | HHI.NSPN ---
(Karley Adame) Note Status Status: Progress Note (Karley Adame) Interval History Interval History Ms. Suárez is a 89 y/o female underwent T12 Kyphoplasty yesterday afternoon 10/14: found to be in distress in this am with food in her mouth, then worsened with cardiopulmonary arrest, Code Blue initiated and patient with return of circulation after one round of ACLS 10/16: intubated but opens eyes, follows simple commands. currently in A. Fib - plan to cardiovert today 10/17: extubated, doing well on supplemental oxygen. following commands. (Karley Adame) Labs, Micro, & Vital Signs Results Date Time Temp Pulse Resp B/P Pulse Ox O2 Delivery O2 Flow Rate FiO2 10/17/16 12:00 98.2 70 25 114/56 98 10/17/16 12:00 70 10/17/16 10:00 69 10/17/16 09:24 100 Nasal Cannula 1 10/17/16 09:24 100 Nasal Cannula 1.00 10/17/16 09:15 99 Nasal Cannula 1.00 10/17/16 09:00 35 10/17/16 08:22 100 35 10/17/16 08:00 35 10/17/16 08:00 99.5 51 12 118/33 100 10/17/16 08:00 51 10/17/16 07:00 100 Mechanical Ventilator 35 10/17/16 06:00 62 10/17/16 04:08 100 35 10/17/16 04:00 99.0 57 12 137/44 100 10/17/16 04:00 35 10/17/16 04:00 57 10/17/16 02:00 64 10/17/16 01:02 99 35 10/17/16 00:00 62 10/17/16 00:00 35 10/17/16 00:00 99.3 62 12 117/55 100 10/16/16 22:00 64 10/16/16 20:00 35 10/16/16 20:00 99.3 72 12 112/44 100 10/16/16 20:00 72 10/16/16 19:33 99 35 10/16/16 19:00 100 Mechanical Ventilator 40 10/16/16 18:00 96 10/16/16 16:04 100 40 10/16/16 16:00 88 10/16/16 16:00 35 10/16/16 16:00 99.5 88 20 118/49 100 10/16/16 14:00 107 10/16/16 13:50 99 40 10/17/16 07:00 Intake Total 1667 ml Output Total 1825 ml Balance -158 ml Constitutional Vital Signs Date Time Temp Pulse Resp B/P Pulse Ox O2 Delivery O2 Flow Rate FiO2 10/17/16 12:00 98.2 70 25 114/56 98 10/17/16 12:00 70 10/17/16 10:00 69 10/17/16 09:24 100 Nasal Cannula 1 10/17/16 09:24 100 Nasal Cannula 1.00 10/17/16 09:15 99 Nasal Cannula 1.00 10/17/16 09:00 35 10/17/16 08:22 100 35 10/17/16 08:00 35 10/17/16 08:00 99.5 51 12 118/33 100 10/17/16 08:00 51 10/17/16 07:00 100 Mechanical Ventilator 35 10/17/16 06:00 62 10/17/16 04:08 100 35 10/17/16 04:00 99.0 57 12 137/44 100 10/17/16 04:00 35 10/17/16 04:00 57 10/17/16 02:00 64 10/17/16 01:02 99 35 10/17/16 00:00 62 10/17/16 00:00 35 10/17/16 00:00 99.3 62 12 117/55 100 10/16/16 22:00 64 10/16/16 20:00 35 10/16/16 20:00 99.3 72 12 112/44 100 10/16/16 20:00 72 10/16/16 19:33 99 35 10/16/16 19:00 100 Mechanical Ventilator 40 10/16/16 18:00 96 10/16/16 16:04 100 40 10/16/16 16:00 88 10/16/16 16:00 35 10/16/16 16:00 99.5 88 20 118/49 100 10/16/16 14:00 107 10/16/16 13:50 99 40 10/17/16 07:00 Intake Total 1667 ml Output Total 1825 ml Balance -158 ml (Karley Adame) Review of Systems/Exam Exam Ms. Suárze has been extubated. attempting to talk, voice is hoarse. follows simple commands CN: pupils equal, facial motor appears symmetric Motor: moved x 4 extremities to command Wound: nursing reports wound is clean and dry (Karley Adame) Medications Current Medications Current Medications Medications (Trade) Dose Ordered Sig/Redd Route PRN Reason Start Time Stop Time Status Last Admin Dose Admin Hydrochlorothiazide (Hydrodiuril) 25 mg DAILY PO 10/13/16 09:00 10/17/16 08:40 Pravastatin Sodium (Pravachol) 20 mg DAILY PO 10/13/16 09:00 10/17/16 08:40 IV Flush (NS Flush) 2 ml UNSCH PRN IVF FLUSH AFTER USING IV ACCESS 10/14/16 16:15 IV Flush (NS Flush) 2 ml BID IVF 10/14/16 21:00 10/17/16 08:41 Acetaminophen/ Hydrocodone Bitart ([place] 10-325 Mg) 1 tab Q4H PRN PO PAIN SCALE 1 TO 5 10/14/16 16:15 10/17/16 08:40 Acetaminophen/ Hydrocodone Bitart ([place] 10-325 Mg) 2 tab Q4H PRN PO PAIN SCALE 6 TO 10 10/14/16 16:15 Acetaminophen (Tylenol) 650 mg Q6H PRN PO FEVER >101F 10/15/16 10:45 Morphine Sulfate (Morphine Inj) 2 mg Q2H PRN IV PAIN SCALE 6 TO 10 10/15/16 10:45 Pantoprazole Sodium (Protonix Inj) 40 mg DAILY IV 10/16/16 09:00 10/17/16 08:40 Miscellaneous Information 1 Q361D XX 10/15/16 10:45 Chlorhexidine Gluconate (Chlorhexidine 2% Cloth) 3 pack Taper DAILY@04 TOP 10/16/16 04:00 10/12/17 03:59 10/17/16 05:10 Chlorhexidine Gluconate (Chlorhexidine 2% Cloth) 3 pack UNSCH PRN TOP HYGIENIC CARE 10/15/16 10:45 Senna/Docusate Sodium (Aylin-Colace) 1 tab BID PO 10/15/16 21:00 10/17/16 08:40 Magnesium Hydroxide (Milk Of [place]) 30 ml Q12H PRN PO MILD - MODERATE CONSTIPATION 10/15/16 10:45 10/17/16 08:39 Sennosides (Senokot) 17.2 mg Q12H PRN PO MODERATE - SEVERE CONSTIPATION 10/15/16 10:45 Bisacodyl (Dulcolax Supp) 10 mg DAILY PRN RECTAL SEVERE CONSITIPATION 10/15/16 10:45 10/16/16 09:10 Lactulose 30 ml 30 ml DAILY PRN PO SEVERE CONSITIPATION 10/15/16 10:45 10/17/16 08:39 Propofol 100 ml @ 0 mls/hr TITRATE IV 10/15/16 10:45 10/17/16 00:54 Dopamine HCl/ Dextrose (DOPamine INJ PREMIX) 500 ml @ 0 mls/hr TITRATE IV 10/15/16 22:30 Atenolol (Tenormin) 25 mg DAILY PO 10/16/16 09:00 10/16/16 09:11 Lisinopril (Prinivil) 10 mg DAILY PO 10/16/16 09:00 10/17/16 08:40 Miscellaneous (Pill Splitter) 1 ea UNSCH PRN OTHER SEE LABEL COMMENTS 10/16/16 07:15 Miscellaneous Information D/C ICU ELECTROLYTE ORDERS... UNSCH PRN .XX SEE DOSE INSTRUCTIONS 10/16/16 09:45 Miscellaneous Information ICU - CALL ORDERING PHYSIC... UNSCH PRN .XX SEE DOSE INSTRUCTIONS 10/16/16 09:45 Potassium Chloride (KCl 40 Meq Premix Inj) 100 ml @ 25 mls/hr UNSCH PRN IV ELECTROLYTE REPLACEMENT 10/16/16 09:45 Potassium Bicarb/ Potassium Chloride 50 meq 50 meq UNSCH PRN PO ELECTROLYTE REPLACEMENT 10/16/16 09:45 10/17/16 08:39 Potassium Chloride 100 ml @ 50 mls/hr UNSCH PRN IV ELECTROLYTE REPLACEMENT 10/16/16 09:45 Magnesium Sulfate 4 gm/Sodium Chloride 108 ml @ 54 mls/hr UNSCH PRN IV ELECTROLYTE REPLACEMENT 10/16/16 09:45 Magnesium Sulfate/ Sodium Chloride (Magnesium Sulfate Inj/NS Inj) 104 ml @ 52 mls/hr UNSCH PRN IV ELECTROLYTE REPLACEMENT 10/16/16 09:45 Magnesium Oxide 800 mg 800 mg UNSCH PRN PO ELECTROLYTE REPLACEMENT 10/16/16 09:45 Sodium Phosphate/ Sodium Chloride (Sodium Phosphate Inj/NS 250 ml Inj) 260 ml @ 43.333 mls/ hr UNSCH PRN IV ELECTROLYTE REPLACEMENT 10/16/16 09:45 10/16/16 16:49 Potassium Phosphate 2000 mg 2,000 mg UNSCH PRN PO ELECTROLYTE REPLACEMENT 10/16/16 09:45 Potassium Phosphate/Sodium Chloride (Potassium Phosphate Inj/NS 250 ml Inj) 260 ml @ 43.333 mls/ hr UNSCH PRN IV ELECTROLYTE REPLACEMENT 10/16/16 09:45 (Karley Adame) Medical Decision Making MDM Remarks 89 y/o female s/p T12 Kyphoplasty 10/14/16 s/p cardiopulmonary arrest 10/15/16 with returns of circulation following one round of ACLS acute A. Fib with RVR, converted back to NSR (Karley Adame) Plan Plan Remarks cont critical care management cont supportive care ok to start anticoagulation or antiplatelet if needed from standpoint neuro exam improving TLSO when out of bed will follow (Karley Adame) Attending Statement The exam, history, and the medical decision-making described in the above note were completed with the assistance of the mid-level provider. I reviewed and agree with the findings presented. I attest that I had a [id number] encounter with the patient on the same day, and personally performed and documented my assessment and findings in the medical record. (Vijay Burk MD) Karley Adame Oct 17, 2016 14:26 Vijay Burk MD Oct 18, 2016 22:22
[2016-10-18] VITALS (11 sets, daily range): BP systolic 127–147; BP diastolic 58–67; PULSE 54–81; RESP 18–28; TEMP 97.7–99.3; O2SAT 99–100
[2016-10-18] MEDS: CHLORHEXIDINE GLUCONATE 2 % 1 PACK (2 CLOTHS) TOP SCH (04:09)
[2016-10-18 04:24] LABS: HEMATOCRIT 29.6 % (35.0-46.0); MEAN CELL VOLUME 83.2 FL (80.0-100.0); MEAN CORPUSCULAR HGB CONC 33.7 % (32.0-36.0); PLATELET COUNT 233 TH/MM3 (150-450); RED BLOOD COUNT 3.56 MIL/MM3 (4.00-5.30); RED CELL DISTRIBUTION WIDTH 15.1 % (11.6-17.2); REVIEW FLAG FINAL; WHITE BLOOD COUNT 10.5 TH/MM3 (4.0-11.0)
[2016-10-18 04:57] LABS: BICARBONATE 32.3 MEQ/L (21.0-32.0); POTASSIUM 4.5 MEQ/L (3.5-5.1)
[2016-10-18] MEDS: PANTOPRAZOLE SODIUM 40 MG VIAL IV SCH (07:44)
[2016-10-18] MEDS: CALCITONIN SALM 200 UNIT/SPRAY 3.7 ML BTLN NASAL SCH (07:44)
[2016-10-18] MEDS: SODIUM CHLORIDE 0.9% FLUSH 5 ML FLUSH IVF SCH ×2 (07:44→21:57)
[2016-10-18] MEDS: HYDROCHLOROTHIAZIDE 25 MG TAB PO SCH (07:45)
[2016-10-18] MEDS: PRAVASTATIN SOD 20 MG TAB PO SCH (07:45)
[2016-10-18] MEDS: ATENOLOL 50 MG TAB PO SCH (07:45)
[2016-10-18] MEDS: DOCUSATE SODIUM 50 MG/SENNA 8.6 MG TAB PO SCH ×2 (07:45→21:57)
[2016-10-18] MEDS: LISINOPRIL 10 MG TAB PO SCH (07:45)
--- NOTE | 2016-10-18 09:54 | HHI.NSPN ---
(Julio Dunn) History Chief Complaint: No complaints. (Julio Dunn) Interval History Ms. Suárez is a 89 y/o female underwent T12 Kyphoplasty yesterday afternoon 10/14: found to be in distress in this am with food in her mouth, then worsened with cardiopulmonary arrest, Code Blue initiated and patient with return of circulation after one round of ACLS 10/16: intubated but opens eyes, follows simple commands. currently in A. Fib - plan to cardiovert today 10/17: extubated, doing well on supplemental oxygen. following commands. 10/18: The patient is doing well when seen this morning. She has finished her breakfast. She had no complaints when seen. (Julio Dunn) System Review Comments Constitutional: Patient denies any fever or chills. HEENT: Patient denies any difficulty swallowing. Neck: Patient denies any neck pain. Respiratory: Patient denies any shortness of breath or productive cough. Cardiovascular: Patient denies any chest pain, palpitations or irregular heartbeat. Gastrointestinal: Patient denies any abdominal pain, nausea, vomiting or incontinence of stool. Genitourinary: Patient has a Verma catheter in place. Musculoskeletal: Patient denies any pain or weakness to the extremities. She also denies any back pain. Neurologic: Patient denies any headache, dizziness, numbness or tingling. ( Julio Dunn) Exam Results Vital Signs Date Time Temp Pulse Resp B/P Pulse Ox O2 Delivery O2 Flow Rate FiO2 10/18/16 08:00 98.2 54 24 127/58 100 10/18/16 07:27 Nasal Cannula 2.00 10/17/16 20:07 21 Intake and Output 10/17/16 10/17/16 10/18/16 08:00 16:00 00:00 Intake Total 366 ml 504 ml 480 ml Output Total 600 ml 225 ml 400 ml Balance -234 ml 279 ml 80 ml (Julio Dunn) Physical Examination General: The patient is awake & alert, she readily interacts & smiles, normal affect, no apparent distress. HEENT: Normocephalic, atraumatic. PERRLA, EOMI. MMM & pink, tongue midline to protrusion. Neck: Supple, active ROM w/o pain, no JVD, trachea midline. Respiratory: CTAB w/o W/R/R, equal excursion, nonlaboured, on RA. Cardiovascular: S1S2 w/RRR w/grade III/ murmur, radial & pedal pulses 2+ bilaterally, cap refill < 2 sec, no pedal edema. Monitor is SR w/o any ectopy noted. Gastrointestinal: Abdomen soft, nontender, positive bowel sounds. Genitourinary: Verma catheter to BSD w/clear yellow urine. Skin: Warm, dry & intact, multiple upper extremity ecchymotic areas of indeterminate ages, thoracic spine surgical incisions well approximated w/ intact steri-strips, no drainage, erythema or streaking noted. Musculoskeletal: JONES w/o difficulty, no evident deformity or clubbing. Neurologic: AAOx2 (person & place but not time). Speech clear and appropriate. Follows simple commands. CN II-XII grossly intact. Sensation intact to light touch to all extremities. Strength BLE 5/5 to all major flexion & extension muscle groups. Strength BUE 4 to 4+/5 to all major flexion & extension muscle groups. (Julio Dunn) Lab, Micro, Other Results Allergies Coded Allergies Type Severity Reaction Last Updated Verified Penicillin Allergy Intermediate Rash 10/12/16 Yes Recent Impressions Chest X-Ray 10/17/16 0400 Signed Impressions: Service Date/Time: Monday, October 17, 2016 03:26 - CONCLUSION: No significant change trace right and small left pleural effusions with mild bibasilar atelectasis. Lines and tubes as above. Nasogastric tube now courses into the stomach. Sumit Linn MD / 06:00 18:00 06:00 18:00 06:00 18:00 Intake Total 793 ml 392 ml 1275 ml 504 ml 720 ml Output Total 1540 ml 450 ml 1375 ml 225 ml 1150 ml Balance -747 ml -58 ml -100 ml 279 ml -430 ml Intake Oral 200 ml 720 ml IV Total 793 ml 275 ml 980 ml 137 ml 0 ml Tube Feeding 17 ml 265 ml 47 ml Tube Irrigant 30 ml Other 100 ml 120 ml Output Urine Total 1540 ml 450 ml 1375 ml 225 ml 1150 ml Gastric Drainage Total 0 ml Tube Feeding Residual Discard 0 ml # Bowel Movements 0 0 0 0 5 Laboratory Tests Test 10/15/16 10/15/16 10/15/16 10/15/16 10:00 11:29 15:40 16:58 White Blood Count 14.7 TH/MM3 Red Blood Count 3.93 MIL/MM3 Hemoglobin 10.8 GM/DL Hematocrit 34.0 % Mean Corpuscular Volume 86.4 FL Mean Corpuscular Hemoglobin 27.5 PG Mean Corpuscular Hemoglobin 31.9 % Concent Red Cell Distribution Width 15.0 % Platelet Count 342 TH/MM3 Mean Platelet Volume 8.0 FL Neutrophils (%) (Auto) 73.6 % Lymphocytes (%) (Auto) 20.5 % Monocytes (%) (Auto) 5.6 % Eosinophils (%) (Auto) 0.1 % Basophils (%) (Auto) 0.2 % Neutrophils # (Auto) 10.8 TH/MM3 Lymphocytes # (Auto) 3.0 TH/MM3 Monocytes # (Auto) 0.8 TH/MM3 Eosinophils # (Auto) 0.0 TH/MM3 Basophils # (Auto) 0.0 TH/MM3 CBC Comment DIFF FINAL Differential Comment Prothrombin Time 11.0 SEC Prothromb Time International 1.0 RATIO Ratio Activated Partial 23.0 SEC Thromboplast Time Sodium Level 136 MEQ/L Potassium Level 4.1 MEQ/L Chloride Level 101 MEQ/L Carbon Dioxide Level 20.7 MEQ/L Anion Gap 14 MEQ/L Blood Urea Nitrogen 19 MG/DL Creatinine 1.20 MG/DL Estimat Glomerular Filtration 42 ML/MIN Rate Random Glucose 298 MG/DL Lactic Acid Level 7.8 mmol/L Calcium Level 8.1 MG/DL Phosphorus Level 5.7 MG/DL Magnesium Level 3.5 MG/DL Total Bilirubin 0.2 MG/DL Aspartate Amino Transf 36 U/L (AST/SGOT) Alanine Aminotransferase 30 U/L (ALT/SGPT) Alkaline Phosphatase 72 U/L Total Creatine Kinase 125 U/L Creatine Kinase MB 4.4 NG/ML Troponin I 0.11 NG/ML 2.20 NG/ML Total Protein 5.9 GM/DL Albumin 2.5 GM/DL Blood Gas Puncture Site ART LINE ART LINE Blood Gas Patient Temperature 98.6 98.6 Blood Gas HCO3 20 mmol/L 23 mmol/L Blood Gas Base Excess -5.4 mmol/L -0.5 mmol/L Blood Gas Oxygen Saturation 98 % 98 % Arterial Blood pH 7.31 7.44 Arterial Blood Partial 41 mmHg 35 mmHg Pressure CO2 Arterial Blood Partial 451 mmHg 207 mmHg Pressure O2 Arterial Blood Oxygen Content 15.9 Vol % 14.9 Vol % Arterial Blood 1.0 % 1.3 % Carboxyhemoglobin Arterial Blood Methemoglobin 0.8 % 0.7 % Blood Gas Hemoglobin 10.7 G/DL 10.5 G/DL Oxygen Delivery Device VENTILATOR VENTILATOR Blood Gas Ventilator Setting SEE COMMENTS PRVC/AC Blood Gas Inspired Oxygen 100 % 45 % Test 10/15/16 10/16/16 10/16/16 10/16/16 18:05 04:00 05:06 10:55 Lactic Acid Level 1.0 mmol/L 1.0 mmol/L Troponin I 3.08 NG/ML White Blood Count 12.8 TH/MM3 Red Blood Count 4.03 MIL/MM3 Hemoglobin 11.2 GM/DL Hematocrit 33.2 % Mean Corpuscular Volume 82.3 FL Mean Corpuscular Hemoglobin 27.9 PG Mean Corpuscular Hemoglobin 33.9 % Concent Red Cell Distribution Width 14.7 % Platelet Count 277 TH/MM3 Mean Platelet Volume 7.5 FL Neutrophils (%) (Auto) 82.3 % Lymphocytes (%) (Auto) 9.6 % Monocytes (%) (Auto) 7.5 % Eosinophils (%) (Auto) 0.3 % Basophils (%) (Auto) 0.3 % Neutrophils # (Auto) 10.5 TH/MM3 Lymphocytes # (Auto) 1.2 TH/MM3 Monocytes # (Auto) 1.0 TH/MM3 Eosinophils # (Auto) 0.0 TH/MM3 Basophils # (Auto) 0.0 TH/MM3 CBC Comment DIFF FINAL Differential Comment Sodium Level 136 MEQ/L Potassium Level 3.7 MEQ/L Chloride Level 101 MEQ/L Carbon Dioxide Level 27.1 MEQ/L Anion Gap 8 MEQ/L Blood Urea Nitrogen 15 MG/DL Creatinine 0.65 MG/DL Estimat Glomerular Filtration 86 ML/MIN Rate Random Glucose 143 MG/DL Calcium Level 8.4 MG/DL Phosphorus Level 1.0 MG/DL Magnesium Level 2.0 MG/DL Blood Gas Puncture Site ART LINE ART LINE Blood Gas Patient Temperature 98.6 98.6 Blood Gas HCO3 23 mmol/L 25 mmol/L Blood Gas Base Excess 1.6 mmol/L 0.7 mmol/L Blood Gas Oxygen Saturation 98 % 98 % Arterial Blood pH 7.63 7.42 Arterial Blood Partial 22 mmHg 38 mmHg Pressure CO2 Arterial Blood Partial 134 mmHg 160 mmHg Pressure O2 Arterial Blood Oxygen Content 15.5 Vol % 19.5 Vol % Arterial Blood 1.5 % 1.0 % Carboxyhemoglobin Arterial Blood Methemoglobin 0.6 % 0.8 % Blood Gas Hemoglobin 11.1 G/DL 14.1 G/DL Oxygen Delivery Device VENTILATOR VENTILATOR Blood Gas Ventilator Setting PRVC/AC PRVC12/400/1.4/+5 14/500/+5/ Blood Gas Inspired Oxygen 35 % 35 % Test 10/16/16 10/17/16 10/17/16 10/18/16 12:08 04:16 04:45 04:00 Sodium Level 136 MEQ/L 138 MEQ/L 136 MEQ/L Potassium Level 3.6 MEQ/L 3.4 MEQ/L 4.5 MEQ/L Chloride Level 103 MEQ/L 102 MEQ/L 98 MEQ/L Carbon Dioxide Level 25.9 MEQ/L 27.4 MEQ/L 32.3 MEQ/L Anion Gap 7 MEQ/L 9 MEQ/L 6 MEQ/L Blood Urea Nitrogen 15 MG/DL 13 MG/DL 16 MG/DL Creatinine 0.69 MG/DL 0.64 MG/DL 0.68 MG/DL Estimat Glomerular Filtration 80 ML/MIN 87 ML/MIN 81 ML/MIN Rate Random Glucose 167 MG/DL 155 MG/DL 96 MG/DL Calcium Level 8.4 MG/DL 8.2 MG/DL 8.6 MG/DL Magnesium Level 2.1 MG/DL 1.9 MG/DL Blood Gas Puncture Site ART LINE Blood Gas Patient Temperature 98.6 Blood Gas HCO3 26 mmol/L Blood Gas Base Excess 2.7 mmol/L Blood Gas Oxygen Saturation 97 % Arterial Blood pH 7.47 Arterial Blood Partial 36 mmHg Pressure CO2 Arterial Blood Partial 134 mmHg Pressure O2 Arterial Blood Oxygen Content 15.1 Vol % Arterial Blood 1.4 % Carboxyhemoglobin Arterial Blood Methemoglobin 0.8 % Blood Gas Hemoglobin 10.9 G/DL Oxygen Delivery Device VENTILATOR Blood Gas Ventilator Setting AC/12/400/PEEP5 Blood Gas Inspired Oxygen 35 % Phosphorus Level 2.6 MG/DL White Blood Count 10.5 TH/MM3 Red Blood Count 3.56 MIL/MM3 Hemoglobin 10.0 GM/DL Hematocrit 29.6 % Mean Corpuscular Volume 83.2 FL Mean Corpuscular Hemoglobin 28.0 PG Mean Corpuscular Hemoglobin 33.7 % Concent Red Cell Distribution Width 15.1 % Platelet Count 233 TH/MM3 Mean Platelet Volume 7.7 FL Vital Signs Date Time Temp Pulse Resp B/P Pulse Ox O2 Delivery O2 Flow Rate FiO2 10/18/16 08:00 98.2 54 24 127/58 100 10/18/16 08:00 54 10/18/16 07:27 100 Nasal Cannula 2.00 10/18/16 07:00 100 Nasal Cannula 2.00 10/18/16 06:00 56 10/18/16 04:00 59 10/18/16 04:00 97.7 59 28 130/58 100 10/18/16 02:00 59 10/18/16 00:00 65 10/18/16 00:00 98.1 65 26 127/59 100 10/17/16 22:00 74 10/17/16 20:07 92 21 10/17/16 20:00 87 10/17/16 20:00 97.8 75 24 159/72 96 10/17/16 19:30 96 Nasal Cannula 1.00 10/17/16 19:00 88 Room Air 10/17/16 18:00 76 10/17/16 16:00 98.3 69 23 151/68 92 10/17/16 16:00 69 10/17/16 14:00 66 10/17/16 12:00 98.2 70 25 114/56 98 10/17/16 12:00 70 10/17/16 10:00 69 10/17/16 09:24 100 Nasal Cannula 1 10/17/16 09:24 100 Nasal Cannula 1.00 10/17/16 09:15 99 Nasal Cannula 1.00 10/17/16 09:00 35 10/17/16 08:22 100 35 10/17/16 08:00 35 10/17/16 08:00 99.5 51 12 118/33 100 10/17/16 08:00 51 10/17/16 07:00 100 Mechanical Ventilator 35 10/17/16 06:00 62 10/17/16 04:08 100 35 10/17/16 04:00 99.0 57 12 137/44 100 10/17/16 04:00 35 10/17/16 04:00 57 10/17/16 02:00 64 10/17/16 01:02 99 35 10/17/16 00:00 62 10/17/16 00:00 35 10/17/16 00:00 99.3 62 12 117/55 100 10/16/16 22:00 64 10/16/16 20:00 35 10/16/16 20:00 99.3 72 12 112/44 100 10/16/16 20:00 72 10/16/16 19:33 99 35 10/16/16 19:00 100 Mechanical Ventilator 40 10/16/16 18:00 96 10/16/16 16:04 100 40 10/16/16 16:00 88 10/16/16 16:00 35 10/16/16 16:00 99.5 88 20 118/49 100 10/16/16 14:00 107 10/16/16 13:50 99 40 10/16/16 12:00 131 10/16/16 12:00 35 10/16/16 12:00 99.0 131 16 112/48 100 10/16/16 11:25 96 10/16/16 11:03 174 10/16/16 10:00 71 10/16/16 08:00 68 10/16/16 08:00 35 10/16/16 07:51 100 35 10/16/16 07:00 100 Mechanical Ventilator 35 10/16/16 06:45 35 10/16/16 06:00 65 10/16/16 04:00 76 10/16/16 04:00 35 10/16/16 04:00 99.0 76 18 100 10/16/16 03:54 100 Ventilator 10/16/16 03:50 100 35 10/16/16 02:00 63 10/16/16 00:09 98 35 10/16/16 00:00 66 10/16/16 00:00 99.7 66 14 126/44 100 10/15/16 22:00 66 10/15/16 20:00 98.6 86 16 126/50 100 10/15/16 20:00 86 10/15/16 19:48 100 35 10/15/16 16:00 98.8 72 16 125/50 100 10/15/16 15:00 64 10/15/16 14:23 100 35 10/15/16 12:00 97.9 73 16 124/50 100 10/15/16 10:46 0 100 10/15/16 10:00 100 100 10/15/16 09:48 104 (Julio Dunn) Medical Decision Making Impression and Plan Impression: 89 y/o female s/p T12 Kyphoplasty 10/14/16 s/p cardiopulmonary arrest 10/15/16 with returns of circulation following one round of ACLS acute A. Fib with RVR, converted back to NSR Patient doing well, no back pain, minimal weakness BUE Plan: Neuro checks. Mobilise patient w/assistance. TLSO when out of bed. PT & OT eval & tx. Okay for transfer to a regular med/surg floor w/telemetry from NSGY's perspective. Will follow. (Julio Dunn) Attending Statement The exam, history, and the medical decision-making described in the above note were completed with the assistance of the mid-level provider. I reviewed and agree with the findings presented. I attest that I had a [id number] encounter with the patient on the same day, and personally performed and documented my assessment and findings in the medical record. On my examination this morning the patient is awake and alert. No complaint of back pain. No complaint of lower extremity pain weakness or numbness. She has intact sensation to light touch and motor function throughout the lower extremities. Discussed with the physical therapist who is in the room with the patient this morning. She will mobilize out of bed with the TLSO brace. She is stable for transfer to regular floor from neurosurgical standpoint. (Elías Stephens MD) Julio Dunn Oct 18, 2016 09:54 Elías Stephens MD Oct 18, 2016 11:40
--- NOTE | 2016-10-18 12:01 | HHI.PR ---
Subjective Remarks This is a pleasant 89 y/o Female with status post T12 Kyphoplasty for intractable pain due to compression fracture status post Cardiac Arrest status post resuscitation, Intubated, was placed in Intensive Care Unit, with diagnosis of Cardiopulmonary Arrest, LA, Respiratory failure, Lactic Acidosis and Status post Kyphoplasty T12, was on Pressors now recommended for transfer to the Floor by Neurosurgery. her Atrial Fibrillation now Sinus rhythm. recommended to get TLCO when out of bed. Seen in her bedroom in the presence of nurse Miss Wang, no complaint, no nausea, vomit or diarrhea, no chest pain. Objective Vital Signs Date Time Temp Pulse Resp B/P Pulse Ox O2 Delivery O2 Flow Rate FiO2 10/18/16 10:00 66 10/18/16 08:00 98.2 54 24 127/58 100 10/18/16 08:00 54 10/18/16 07:27 100 Nasal Cannula 2.00 10/18/16 07:00 100 Nasal Cannula 2.00 10/18/16 06:00 56 10/18/16 04:00 59 10/18/16 04:00 97.7 59 28 130/58 100 10/18/16 02:00 59 10/18/16 00:00 65 10/18/16 00:00 98.1 65 26 127/59 100 10/17/16 22:00 74 10/17/16 20:07 92 21 10/17/16 20:00 87 10/17/16 20:00 97.8 75 24 159/72 96 10/17/16 19:30 96 Nasal Cannula 1.00 10/17/16 19:00 88 Room Air 10/17/16 18:00 76 10/17/16 16:00 98.3 69 23 151/68 92 10/17/16 16:00 69 10/17/16 14:00 66 10/17/16 12:00 98.2 70 25 114/56 98 10/17/16 12:00 70 I/O 10/17/16 10/17/16 10/17/16 10/18/16 10/18/16 10/18/16 07:00 15:00 23:00 07:00 15:00 23:00 Intake Total 366 ml 504 ml 480 ml 240 ml Output Total 600 ml 225 ml 400 ml 750 ml Balance -234 ml 279 ml 80 ml -510 ml Intake Oral 200 ml 480 ml 240 ml IV Total 234 ml 137 ml 0 ml 0 ml Tube Feeding 132 ml 47 ml Other 120 ml Output Urine Total 600 ml 225 ml 400 ml 750 ml # Bowel Movements 0 0 3 2 Result Diagram: 10/18/1639910/18/16399 Imaging Last Impressions Chest X-Ray 10/17/16399 Signed Impressions: Service Date/Time: Monday, October 17, 2016 03:26 - CONCLUSION: No significant change trace right and small left pleural effusions with mild bibasilar atelectasis. Lines and tubes as above. Nasogastric tube now courses into the stomach. Sumit Linn MD Thoracic Spine X-Ray 10/14/16 0000 Signed Impressions: Service Date/Time: Friday, October 14, 2016 15:50 - CONCLUSION: 1. Postoperative T12 kyphoplasty. Nicholas Yañez MD Thoracic Spine MRI 10/13/16 0000 Signed Impressions: Service Date/Time: Thursday, October 13, 2016 15:21 - CONCLUSION: T12 fracture, mainly horizontal upper vertebral body cleft Sumit Eddy MD Thoracic Spine CT 10/12/16 0000 Signed Impressions: Service Date/Time: Wednesday, October 12, 2016 18:17 - CONCLUSION: 1. Compression fracture through superior aspect of T12 without significant loss of vertebral body height. Fracture is probably subacute with some resorption at the fracture line. Prominent osteophyte at this level posteriorly results in a mild to moderate AP canal stenosis. No other fractures. Nicholas Yañez MD Lumbar Spine CT 10/12/16 0000 Signed Impressions: Service Date/Time: Wednesday, October 12, 2016 18:17 - CONCLUSION: 1. T12 fracture. See thoracic spine CT report. No lumbar spine fracture. 2. 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 Nicholas Yañez MD Procedures 10/14/2016 T12 Kyphoplasty Endotracheal Intubation and extubation. Other Results Laboratory Tests Test 10/15/16 10/15/16 10/16/16 10/17/16 10:00 18:05 04:00 04:16 Prothrombin Time 11.0 SEC Prothromb Time International 1.0 RATIO Ratio Activated Partial 23.0 SEC Thromboplast Time Total Bilirubin 0.2 MG/DL Aspartate Amino Transf 36 U/L (AST/SGOT) Alanine Aminotransferase 30 U/L (ALT/SGPT) Alkaline Phosphatase 72 U/L Total Creatine Kinase 125 U/L Creatine Kinase MB 4.4 NG/ML Total Protein 5.9 GM/DL Albumin 2.5 GM/DL Troponin I 3.08 NG/ML Neutrophils (%) (Auto) 82.3 % Lymphocytes (%) (Auto) 9.6 % Monocytes (%) (Auto) 7.5 % Eosinophils (%) (Auto) 0.3 % Basophils (%) (Auto) 0.3 % Neutrophils # (Auto) 10.5 TH/MM3 Lymphocytes # (Auto) 1.2 TH/MM3 Monocytes # (Auto) 1.0 TH/MM3 Eosinophils # (Auto) 0.0 TH/MM3 Basophils # (Auto) 0.0 TH/MM3 CBC Comment DIFF FINAL Differential Comment Lactic Acid Level 1.0 mmol/L Blood Gas Puncture Site ART LINE Blood Gas Patient Temperature 98.6 Blood Gas HCO3 26 mmol/L Blood Gas Base Excess 2.7 mmol/L Blood Gas Oxygen Saturation 97 % Arterial Blood pH 7.47 Arterial Blood Partial 36 mmHg Pressure CO2 Arterial Blood Partial 134 mmHg Pressure O2 Arterial Blood Oxygen Content 15.1 Vol % Arterial Blood 1.4 % Carboxyhemoglobin Arterial Blood Methemoglobin 0.8 % Blood Gas Hemoglobin 10.9 G/DL Oxygen Delivery Device VENTILATOR Blood Gas Ventilator Setting AC/12/400/PEEP5 Blood Gas Inspired Oxygen 35 % Test 10/17/16 10/18/16 04:45 04:00 Phosphorus Level 2.6 MG/DL Magnesium Level 1.9 MG/DL White Blood Count 10.5 TH/MM3 Red Blood Count 3.56 MIL/MM3 Hemoglobin 10.0 GM/DL Hematocrit 29.6 % Mean Corpuscular Volume 83.2 FL Mean Corpuscular Hemoglobin 28.0 PG Mean Corpuscular Hemoglobin 33.7 % Concent Red Cell Distribution Width 15.1 % Platelet Count 233 TH/MM3 Mean Platelet Volume 7.7 FL Sodium Level 136 MEQ/L Potassium Level 4.5 MEQ/L Chloride Level 98 MEQ/L Carbon Dioxide Level 32.3 MEQ/L Anion Gap 6 MEQ/L Blood Urea Nitrogen 16 MG/DL Creatinine 0.68 MG/DL Estimat Glomerular Filtration 81 ML/MIN Rate Random Glucose 96 MG/DL Calcium Level 8.6 MG/DL Objective Remarks GENERAL: Alert, Oriented x 3, NAD. SKIN: Warm and dry. HEAD: Normocephalic. EYES: No scleral icterus. No injection or drainage. NECK: Supple, trachea midline. No JVD or lymphadenopathy. CARDIOVASCULAR: Regular rate and rhythm, Systolic Murmur 3/6 in intensity, RESPIRATORY: Breath sounds equal bilaterally. No accessory muscle use. GASTROINTESTINAL: Abdomen soft, non-tender, nondistended. MUSCULOSKELETAL: No cyanosis, or edema. BACK: Nontender without obvious deformity. No CVA tenderness. Medications and IVs Current Medications Medications (Trade) Dose Ordered Sig/Redd Route Start Time Stop Time Status Last Admin (Hydrodiuril) 25 mg DAILY PO 10/13/16 09:00 10/18/16 07:45 (Pravachol) 20 mg DAILY PO 10/13/16 09:00 10/18/16 07:45 (NS Flush) 2 ml UNSCH PRN IVF 10/14/16 16:15 (NS Flush) 2 ml BID IVF 10/14/16 21:00 10/18/16 07:44 (Glen 10-325 Mg) 1 tab Q4H PRN PO 10/14/16 16:15 10/17/16 08:40 (Glen 10-325 Mg) 2 tab Q4H PRN PO 10/14/16 16:15 (Tylenol) 650 mg Q6H PRN PO 10/15/16 10:45 (Morphine Inj) 2 mg Q2H PRN IV 10/15/16 10:45 (Protonix Inj) 40 mg DAILY IV 10/16/16 09:00 10/18/16 07:44 Miscellaneous Information 1 Q361D XX 10/15/16 10:45 (Chlorhexidine 2% Cloth) 3 pack Taper DAILY@04 TOP 10/16/16 04:00 10/12/17 03:59 10/18/16 04:09 (Chlorhexidine 2% Cloth) 3 pack UNSCH PRN TOP 10/15/16 10:45 (Aylin-Colace) 1 tab BID PO 10/15/16 21:00 10/17/16 20:55 (Milk Of Magnesia Liq) 30 ml Q12H PRN PO 10/15/16 10:45 10/17/16 08:39 (Senokot) 17.2 mg Q12H PRN PO 10/15/16 10:45 (Dulcolax Supp) 10 mg DAILY PRN RECTAL 10/15/16 10:45 10/16/16 09:10 Lactulose 30 ml 30 ml DAILY PRN PO 10/15/16 10:45 10/17/16 08:39 Propofol 100 ml @ 0 mls/hr TITRATE IV 10/15/16 10:45 10/17/16 00:54 (DOPamine INJ PREMIX) 500 ml @ 0 mls/hr TITRATE IV 10/15/16 22:30 (Tenormin) 25 mg DAILY PO 10/16/16 09:00 10/16/16 09:11 (Prinivil) 10 mg DAILY PO 10/16/16 09:00 10/18/16 07:45 (Pill Splitter) 1 ea UNSCH PRN OTHER 10/16/16 07:15 Miscellaneous Information D/C ICU ELECTROLYTE ORDERS... UNSCH PRN .XX 10/16/16 09:45 Miscellaneous Information ICU - CALL ORDERING PHYSIC... UNSCH PRN .XX 10/16/16 09:45 (KCl 40 Meq Premix Inj) 100 ml @ 25 mls/hr UNSCH PRN IV 10/16/16 09:45 Potassium Bicarb/ Potassium Chloride 50 meq 50 meq UNSCH PRN PO 10/16/16 09:45 10/17/16 08:39 Potassium Chloride 100 ml @ 50 mls/hr UNSCH PRN IV 10/16/16 09:45 Magnesium Sulfate 4 gm/Sodium Chloride 108 ml @ 54 mls/hr UNSCH PRN IV 10/16/16 09:45 (Magnesium Sulfate Inj/NS Inj) 104 ml @ 52 mls/hr UNSCH PRN IV 10/16/16 09:45 Magnesium Oxide 800 mg 800 mg UNSCH PRN PO 10/16/16 09:45 (Sodium Phosphate Inj/NS 250 ml Inj) 260 ml @ 43.333 mls/ hr UNSCH PRN IV 10/16/16 09:45 10/16/16 16:49 Potassium Phosphate 2000 mg 2,000 mg UNSCH PRN PO 10/16/16 09:45 (Potassium Phosphate Inj/NS 250 ml Inj) 260 ml @ 43.333 mls/ hr UNSCH PRN IV 10/16/16 09:45 A/P Assessment and Plan Ms. Suárez was seen this morning around 10AM. This is a pleasant 89 year old female who presented to the ED due to worsening low back pain that started about 3 days prior to this admission. Imaging studies indicated T12 compression fracture. now status post Cardiac Arrest. - T12 Compression fracture - Neurosurgery performed kyphoplasty on 10/14/2016. - On short course of calcitonin nasal spray. - Continue Glen and Morphine PRN for pain. -Cardiac Arrest status post ACLS improved condition, probable ischemic but she had ACLS . Consult Cardiology. -VDRF improved. - Hypertension controlled. - Hyperlipidemia - Continue Pravastatin 20mg Qday, Lisinopril 20mg Qday, HCTZ 25mg Qday, Atenolol 50mg Qday. Full code. SCDs. Transfer to the Medical floor and continue Telemetry. following specialist recommendations patient seen in her bedroom in the presence of nurse Miss Wang, all questions answered to the best of my abilities. Discharge Planning Once cleared by specialists. Jacky Amezcua MD Oct 18, 2016 12:01
--- NOTE | 2016-10-18 14:32 | PD.CONS ---
HPI Consult Requested By Reason for Consult Cardiac arrest/atrial fibrillation Primary Care Physician JANNA Rivas History of Present Illness The patient denies any cardiac history and states that her last EKG was at least 15-20 years ago. She is reasonably active and has absolutely no cardiac symptomatology. She was admitted for intractable back pain with a T12 compression fracture and on 10/14 underwent kyphoplasty. Postoperatively she was found with food in her mouth and apparently had a cardiac arrest. She was resuscitated with one round of resuscitation. She was initially intubated and has subsequently been extubated. She did have transient atrial fibrillation. According to the nurse a try cardioverting her which was unsuccessful but then she did convert to sinus rhythm on amiodarone drip. While on the drip she had a 3.2 second pause but has had no pauses since then. She has no cardiac complaints now. Echocardiogram showed 45% ejection fraction with moderately severe mitral regurgitation and moderate tricuspid regurgitation. EKG has shown sinus rhythm with left bundle branch block. Most recent chest x- ray x-ray with trace effusions and atelectasis. Review of Systems Respiratory: DENIES: Cough, Snoring, Wheezing, Sputum production Genitourinary: DENIES: Urinary incontinence Musculoskeletal: COMPLAINS OF: Joint pain, Limited range of motion, Back pain Psychiatric: DENIES: Anxiety, Depression Past Family Social History Allergies: Coded Allergies: Penicillin (Verified Allergy, Intermediate, Rash, 10/12/16) Past Medical History Hypertension Hyperlipidemia Osteoarthritis Compression fracture Left bundle branch block Past Surgical History Cataracts Tracheostomy in the past for pneumonia and collapsed lung Reported Medications Reported Meds & Active Scripts Active Reported Hydrochlorothiazide 25 Mg Tab 25 Mg PO DAILY Atenolol 50 Mg Tab 50 Mg PO DAILY Lisinopril 20 Mg Tab 20 Mg PO DAILY Meloxicam 15 Mg Tab 15 Mg PO DAILY Simvastatin 10 Mg Tab 10 Mg PO DAILY Active Ordered Medications Current Medications Medications (Trade) Dose Ordered Sig/Redd Route Start Time Stop Time Status Last Admin (Hydrodiuril) 25 mg DAILY PO 10/13/16 09:00 10/18/16 07:45 (Pravachol) 20 mg DAILY PO 10/13/16 09:00 10/18/16 07:45 (NS Flush) 2 ml UNSCH PRN IVF 10/14/16 16:15 (NS Flush) 2 ml BID IVF 10/14/16 21:00 10/18/16 07:44 ([place] 10-325 Mg) 1 tab Q4H PRN PO 10/14/16 16:15 10/17/16 08:40 ([place] 10-325 Mg) 2 tab Q4H PRN PO 10/14/16 16:15 (Tylenol) 650 mg Q6H PRN PO 10/15/16 10:45 (Morphine Inj) 2 mg Q2H PRN IV 10/15/16 10:45 (Protonix Inj) 40 mg DAILY IV 10/16/16 09:00 10/18/16 07:44 Miscellaneous Information 1 Q361D XX 10/15/16 10:45 (Chlorhexidine 2% Cloth) 3 pack Taper DAILY@04 TOP 10/16/16 04:00 10/12/17 03:59 10/18/16 04:09 (Chlorhexidine 2% Cloth) 3 pack UNSCH PRN TOP 10/15/16 10:45 (Aylin-Colace) 1 tab BID PO 10/15/16 21:00 10/17/16 20:55 (Milk Of Magnesia Liq) 30 ml Q12H PRN PO 10/15/16 10:45 10/17/16 08:39 (Senokot) 17.2 mg Q12H PRN PO 10/15/16 10:45 (Dulcolax Supp) 10 mg DAILY PRN RECTAL 10/15/16 10:45 10/16/16 09:10 Lactulose 30 ml 30 ml DAILY PRN PO 10/15/16 10:45 10/17/16 08:39 Propofol 100 ml @ 0 mls/hr TITRATE IV 10/15/16 10:45 10/17/16 00:54 (DOPamine INJ PREMIX) 500 ml @ 0 mls/hr TITRATE IV 10/15/16 22:30 (Tenormin) 25 mg DAILY PO 10/16/16 09:00 10/16/16 09:11 (Prinivil) 10 mg DAILY PO 10/16/16 09:00 10/18/16 07:45 (Pill Splitter) 1 ea UNSCH PRN OTHER 10/16/16 07:15 Miscellaneous Information D/C ICU ELECTROLYTE ORDERS... UNSCH PRN .XX 10/16/16 09:45 Miscellaneous Information ICU - CALL ORDERING PHYSIC... UNSCH PRN .XX 10/16/16 09:45 (KCl 40 Meq Premix Inj) 100 ml @ 25 mls/hr UNSCH PRN IV 10/16/16 09:45 Potassium Bicarb/ Potassium Chloride 50 meq 50 meq UNSCH PRN PO 10/16/16 09:45 10/17/16 08:39 Potassium Chloride 100 ml @ 50 mls/hr UNSCH PRN IV 10/16/16 09:45 Magnesium Sulfate 4 gm/Sodium Chloride 108 ml @ 54 mls/hr UNSCH PRN IV 10/16/16 09:45 (Magnesium Sulfate Inj/NS Inj) 104 ml @ 52 mls/hr UNSCH PRN IV 10/16/16 09:45 Magnesium Oxide 800 mg 800 mg UNSCH PRN PO 10/16/16 09:45 (Sodium Phosphate Inj/NS 250 ml Inj) 260 ml @ 43.333 mls/ hr UNSCH PRN IV 10/16/16 09:45 10/16/16 16:49 Potassium Phosphate 2000 mg 2,000 mg UNSCH PRN PO 10/16/16 09:45 (Potassium Phosphate Inj/NS 250 ml Inj) 260 ml @ 43.333 mls/ hr UNSCH PRN IV 10/16/16 09:45 Family History Noncontributory Social History The patient is a and does not smoke and rarely drinks. Physical Exam Vital Signs Vital Signs Date Time Temp Pulse Resp B/P Pulse Ox O2 Delivery O2 Flow Rate FiO2 10/18/16 12:00 70 10/18/16 12:00 98.5 70 25 137/58 100 10/18/16 10:00 66 10/18/16 08:00 98.2 54 24 127/58 100 10/18/16 08:00 54 10/18/16 07:27 100 Nasal Cannula 2.00 10/18/16 07:00 100 Nasal Cannula 2.00 10/18/16 06:00 56 10/18/16 04:00 59 10/18/16 04:00 97.7 59 28 130/58 100 10/18/16 02:00 59 10/18/16 00:00 65 10/18/16 00:00 98.1 65 26 127/59 100 10/17/16 22:00 74 10/17/16 20:07 92 21 10/17/16 20:00 87 10/17/16 20:00 97.8 75 24 159/72 96 10/17/16 19:30 96 Nasal Cannula 1.00 10/17/16 19:00 88 Room Air 10/17/16 18:00 76 10/17/16 16:00 98.3 69 23 151/68 92 10/17/16 16:00 69 Physical Exam CONSTITUTIONAL: A well-developed, well-nourished patient in no apparent distress. EYES: Conjunctiva normal. Sclera nonicteric. Eyelids normal. No xanthelasma. HEENT: Oral mucosa normal without pallor or cyanosis. NECK: JVD less than or equal to 5 cm of water. RESPIRATORY: Breathing is unlabored without accessory muscle use. Normal breath sounds. No wheezes, rales or rubs present. The patient has a chest/back brace on. CARDIOVASCULAR: Normal point of maximal impulse. No cardiac thrill present. Regular rate and rhythm. No gallops, rubs or clicks present. 3/6 blowing systolic ejection murmur at the apex. PULSES: Carotid arteries: Normal pulses bilaterally without bruits. Palmar arteries: Radial pulses 1-2+ bilaterally Abdominal aorta: Aortic pulses normal without bruits or enlargement. Femoral arteries: Not felt given her positioning. No bruits present. Pedal pulses: 1-2+ bilaterally PERIPHERAL CIRCULATION: No cyanosis, clubbing, edema or varicosities present. GASTROINTESTINAL: Normal bowel sounds. Nontender without rigidity or guarding. No masses present. No hepatomegaly. Liver is nontender to palpation and spleen is nonpalpable. Digital rectal exam-not indicated for cardiovascular exam. MUSCULOSKELETAL: No kyphosis or scoliosis present. The patient is not ambulated. Able to undergo rehabilitation. SKIN: Skin turgor is normal. No rashes. NEUROLOGIC: Grossly oriented to person, place and time. Normal mood and appropriate affect. Laboratory Laboratory Tests Test 10/18/16 04:00 White Blood Count 10.5 Red Blood Count 3.56 Hemoglobin 10.0 Hematocrit 29.6 Mean Corpuscular Volume 83.2 Mean Corpuscular Hemoglobin 28.0 Mean Corpuscular Hemoglobin 33.7 Concent Red Cell Distribution Width 15.1 Platelet Count 233 Mean Platelet Volume 7.7 Sodium Level 136 Potassium Level 4.5 Chloride Level 98 Carbon Dioxide Level 32.3 Anion Gap 6 Blood Urea Nitrogen 16 Creatinine 0.68 Estimat Glomerular Filtration 81 Rate Random Glucose 96 Calcium Level 8.6 Date/Time Procedure Status Source Growth 10/15/16 10:00 Aerobic Blood Culture - Preliminary Resulted Blood Line NO GROWTH IN 3 DAYS 10/15/16 10:00 Anaerobic Blood Culture - Preliminary Resulted Blood Line NO GROWTH IN 3 DAYS Result Diagram: 10/18/16 0400 10/18/16 040 Imaging Reviewed. Assessment and Plan Assessment and Plan Problems: Cardiac arrestthis sounds like it initially was a respiratory arrest and easily resuscitated. Non-ST elevation MIthe patient has no prior symptoms and this may be demand mediated. Atrial fibrillation in a postarrest settingresolved Left bundle branch block Significant mitral regurgitation Hypertension Hyperlipidemia Recent kyphoplasty for T12 compression Recommendations: Low-dose beta blockers with blood pressure control Low-cholesterol/salt diet and statins Baby aspirin At this point in time given her overall condition I would not jump to invasive workup. I have given her my card and would like to see her in follow-up in the office and depending on how she does we can decide a plan of action. I will not follow but be available if needed. All questions were answered. Roosevelt Dominguez MD Oct 18, 2016 14:32
[2016-10-18] MEDS: ASPIRIN EC 81 MG TABEC PO SCH (14:51)
[2016-10-19] VITALS: BP 133/63; PULSE 79; RESP 20; TEMP 98.1; O2SAT 97
[2016-10-19] MEDS: CHLORHEXIDINE GLUCONATE 2 % 1 PACK (2 CLOTHS) TOP SCH (03:12)
[2016-10-19 04:00] VITALS: BP 149/69; PULSE 75; RESP 18; TEMP 97.4; O2SAT 98
[2016-10-19 06:45] VITALS: O2SAT 99
[2016-10-19 07:00] VITALS: BP 136/65; PULSE 71; RESP 17; TEMP 95.4; O2SAT 100
[2016-10-19] MEDS: LISINOPRIL 10 MG TAB PO SCH (08:21)
[2016-10-19] MEDS: ASPIRIN EC 81 MG TABEC PO SCH (08:21)
[2016-10-19] MEDS: DOCUSATE SODIUM 50 MG/SENNA 8.6 MG TAB PO SCH (08:21)
[2016-10-19] MEDS: HYDROCHLOROTHIAZIDE 25 MG TAB PO SCH (08:22)
[2016-10-19] MEDS: PRAVASTATIN SOD 20 MG TAB PO SCH (08:22)
[2016-10-19] MEDS: ATENOLOL 50 MG TAB PO SCH (08:22)
[2016-10-19] MEDS: PANTOPRAZOLE SODIUM 40 MG VIAL IV SCH (08:25)
[2016-10-19] MEDS: SODIUM CHLORIDE 0.9% FLUSH 5 ML FLUSH IVF SCH (08:26)
[2016-10-19] MEDS: CALCITONIN SALM 200 UNIT/SPRAY 3.7 ML BTLN NASAL SCH (08:26)
[2016-10-19] MEDS ORDERED: ASPI-99 PO (10:26)
[2016-10-19] MEDS ORDERED: LISI10TA3 PO (10:26)
[2016-10-19] MEDS ORDERED: ATEN50TA PO (10:26)
[2016-10-19 10:47] VITALS: O2SAT 99
--- NOTE | 2016-10-19 11:14 | HHI.PR ---
Subjective Remarks This is a pleasant 89 y/o Female with status post T12 Kyphoplasty for intractable pain due to compression fracture status post Cardiac Arrest status post resuscitation, Intubated, was placed in Intensive Care Unit, with diagnosis of Cardiopulmonary Arrest, DC, Respiratory failure, Lactic Acidosis and Status post Kyphoplasty T12, was on Pressors now recommended for transfer to the Floor by Neurosurgery. her Atrial Fibrillation now Sinus rhythm. recommended to get TLCO when out of bed. 10/19: Seen in her bedroom in the presence of nurse Miss Falcon also CIR specialist present ready for transfer to Inpatient rehab, no complaint and recommended by Neurosurgery for discharge, no nausea, vomit or diarrhea, multiple ecchymosis on both arms. Remove central line and Verma cath for transfer. Status post consult by oil program compliance specialist states she had more like respiratory arrest NSTEMI, Atrial fibrillation post arrest resolved, LBBB, recommended Low dose beta blockers, Baby aspirin and continue Statins. follow as outpatient by Doctor Roosevelt Dominguez. Objective Vital Signs Date Time Temp Pulse Resp B/P Pulse Ox O2 Delivery O2 Flow Rate FiO2 10/19/16 07:00 95.4 71 17 136/65 100 10/19/16 06:45 99 Nasal Cannula 1.00 10/19/16 04:00 97.4 75 18 149/69 98 10/19/16 00:00 98.1 79 20 133/63 97 10/18/16 20:00 99.3 81 22 135/63 99 10/18/16 18:58 Nasal Cannula 1.00 10/18/16 15:00 97.9 69 18 147/67 99 10/18/16 14:00 58 10/18/16 12:00 70 10/18/16 12:00 98.5 70 25 137/58 100 I/O 10/18/16 10/18/16 10/18/16 10/19/16 10/19/16 10/19/16 06:59 14:59 22:59 06:59 14:59 22:59 Intake Total 240 ml 480 ml 240 ml 420 ml Output Total 750 ml 750 ml 850 ml Balance -510 ml -270 ml 240 ml -430 ml Intake Oral 240 ml 480 ml 240 ml 420 ml IV Total 0 ml 0 ml Output Urine Total 750 ml 750 ml 850 ml # Bowel Movements 2 2 Result Diagram: 8/12/17 0400 8/12/17 0400 Imaging Last Impressions Chest X-Ray 10/17/16 0400 Signed Impressions: Service Date/Time: Monday, October 17, 2016 03:26 - CONCLUSION: No significant change trace right and small left pleural effusions with mild bibasilar atelectasis. Lines and tubes as above. Nasogastric tube now courses into the stomach. Sumit Linn MD Thoracic Spine X-Ray 10/14/16 0000 Signed Impressions: Service Date/Time: Friday, October 14, 2016 15:50 - CONCLUSION: 1. Postoperative T12 kyphoplasty. Nicholas Yañez MD Thoracic Spine MRI 10/13/16 0000 Signed Impressions: Service Date/Time: Thursday, October 13, 2016 15:21 - CONCLUSION: T12 fracture, mainly horizontal upper vertebral body cleft Sumit Eddy MD Thoracic Spine CT 10/12/16 0000 Signed Impressions: Service Date/Time: Wednesday, October 12, 2016 18:17 - CONCLUSION: 1. Compression fracture through superior aspect of T12 without significant loss of vertebral body height. Fracture is probably subacute with some resorption at the fracture line. Prominent osteophyte at this level posteriorly results in a mild to moderate AP canal stenosis. No other fractures. Nicholas Yañez MD Lumbar Spine CT 10/12/16 0000 Signed Impressions: Service Date/Time: Wednesday, October 12, 2016 18:17 - CONCLUSION: 1. T12 fracture. See thoracic spine CT report. No lumbar spine fracture. 2. 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 Nicholas Yañez MD Procedures 10/14/2016 T12 Kyphoplasty Endotracheal Intubation and extubation. Other Results Laboratory Tests Test 10/15/16 10/15/16 10/16/16 10/17/16 10:00 18:05 04:00 04:16 Prothrombin Time 11.0 SEC Prothromb Time International 1.0 RATIO Ratio Activated Partial 23.0 SEC Thromboplast Time Total Bilirubin 0.2 MG/DL Aspartate Amino Transf 36 U/L (AST/SGOT) Alanine Aminotransferase 30 U/L (ALT/SGPT) Alkaline Phosphatase 72 U/L Total Creatine Kinase 125 U/L Creatine Kinase MB 4.4 NG/ML Total Protein 5.9 GM/DL Albumin 2.5 GM/DL Troponin I 3.08 NG/ML Neutrophils (%) (Auto) 82.3 % Lymphocytes (%) (Auto) 9.6 % Monocytes (%) (Auto) 7.5 % Eosinophils (%) (Auto) 0.3 % Basophils (%) (Auto) 0.3 % Neutrophils # (Auto) 10.5 TH/MM3 Lymphocytes # (Auto) 1.2 TH/MM3 Monocytes # (Auto) 1.0 TH/MM3 Eosinophils # (Auto) 0.0 TH/MM3 Basophils # (Auto) 0.0 TH/MM3 CBC Comment DIFF FINAL Differential Comment Lactic Acid Level 1.0 mmol/L Blood Gas Puncture Site ART LINE Blood Gas Patient Temperature 98.6 Blood Gas HCO3 26 mmol/L Blood Gas Base Excess 2.7 mmol/L Blood Gas Oxygen Saturation 97 % Arterial Blood pH 7.47 Arterial Blood Partial 36 mmHg Pressure CO2 Arterial Blood Partial 134 mmHg Pressure O2 Arterial Blood Oxygen Content 15.1 Vol % Arterial Blood 1.4 % Carboxyhemoglobin Arterial Blood Methemoglobin 0.8 % Blood Gas Hemoglobin 10.9 G/DL Oxygen Delivery Device VENTILATOR Blood Gas Ventilator Setting AC/12/400/PEEP5 Blood Gas Inspired Oxygen 35 % Test 10/17/16 10/18/16 04:45 04:00 Phosphorus Level 2.6 MG/DL Magnesium Level 1.9 MG/DL White Blood Count 10.5 TH/MM3 Red Blood Count 3.56 MIL/MM3 Hemoglobin 10.0 GM/DL Hematocrit 29.6 % Mean Corpuscular Volume 83.2 FL Mean Corpuscular Hemoglobin 28.0 PG Mean Corpuscular Hemoglobin 33.7 % Concent Red Cell Distribution Width 15.1 % Platelet Count 233 TH/MM3 Mean Platelet Volume 7.7 FL Sodium Level 136 MEQ/L Potassium Level 4.5 MEQ/L Chloride Level 98 MEQ/L Carbon Dioxide Level 32.3 MEQ/L Anion Gap 6 MEQ/L Blood Urea Nitrogen 16 MG/DL Creatinine 0.68 MG/DL Estimat Glomerular Filtration 81 ML/MIN Rate Random Glucose 96 MG/DL Calcium Level 8.6 MG/DL Objective Remarks GENERAL: Alert, Oriented x 3, NAD. SKIN: Warm and dry. HEAD: Normocephalic. EYES: No scleral icterus. No injection or drainage. NECK: Supple, trachea midline. No JVD or lymphadenopathy. CARDIOVASCULAR: Regular rate and rhythm, Systolic Murmur 3/6 in intensity, RESPIRATORY: Breath sounds equal bilaterally. No accessory muscle use. GASTROINTESTINAL: Abdomen soft, non-tender, nondistended. MUSCULOSKELETAL: No cyanosis, or edema. Ecchymosis on both arms BACK: Nontender without obvious deformity. No CVA tenderness. Medications and IVs Current Medications Medications (Trade) Dose Ordered Sig/Redd Route Start Time Stop Time Status Last Admin (Hydrodiuril) 25 mg DAILY PO 10/13/16 09:00 10/19/16 08:22 (Pravachol) 20 mg DAILY PO 10/13/16 09:00 10/19/16 08:22 (NS Flush) 2 ml UNSCH PRN IVF 10/14/16 16:15 (NS Flush) 2 ml BID IVF 10/14/16 21:00 10/19/16 08:26 ([place] 10-325 Mg) 1 tab Q4H PRN PO 10/14/16 16:15 10/17/16 08:40 ([place] 10-325 Mg) 2 tab Q4H PRN PO 10/14/16 16:15 (Tylenol) 650 mg Q6H PRN PO 10/15/16 10:45 (Morphine Inj) 2 mg Q2H PRN IV 10/15/16 10:45 (Protonix Inj) 40 mg DAILY IV 10/16/16 09:00 10/19/16 08:25 Miscellaneous Information 1 Q361D XX 10/15/16 10:45 (Chlorhexidine 2% Cloth) 3 pack Taper DAILY@04 TOP 10/16/16 04:00 10/12/17 03:59 10/18/16 04:09 (Chlorhexidine 2% Cloth) 3 pack UNSCH PRN TOP 10/15/16 10:45 (Aylin-Colace) 1 tab BID PO 10/15/16 21:00 10/19/16 08:21 (Milk Of Magnesia Liq) 30 ml Q12H PRN PO 10/15/16 10:45 10/17/16 08:39 (Senokot) 17.2 mg Q12H PRN PO 10/15/16 10:45 (Dulcolax Supp) 10 mg DAILY PRN RECTAL 10/15/16 10:45 10/16/16 09:10 Lactulose 30 ml 30 ml DAILY PRN PO 10/15/16 10:45 10/17/16 08:39 Propofol 100 ml @ 0 mls/hr TITRATE IV 10/15/16 10:45 10/17/16 00:54 (DOPamine INJ PREMIX) 500 ml @ 0 mls/hr TITRATE IV 10/15/16 22:30 (Tenormin) 25 mg DAILY PO 10/16/16 09:00 10/19/16 08:22 (Prinivil) 10 mg DAILY PO 10/16/16 09:00 10/19/16 08:21 (Pill Splitter) 1 ea UNSCH PRN OTHER 10/16/16 07:15 (Ecotrin Ec) 162 mg DAILY PO 10/18/16 15:00 10/19/16 08:21 A/P Assessment and Plan Ms. Suárez was seen this morning around 10AM. This is a pleasant 89 year old female who presented to the ED due to worsening low back pain that started about 3 days prior to this admission. Imaging studies indicated T12 compression fracture. now status post Cardiac Arrest. - T12 Compression fracture - Neurosurgery performed kyphoplasty on 10/14/2016. - On short course of calcitonin nasal spray. - Continue Nokomis and Morphine PRN for pain. -Cardiac Arrest status post ACLS improved condition, probable ischemic but she had ACLS . 10/19: Seen in her bedroom in the presence of nurse Miss Falcon also CIR specialist present ready for transfer to Inpatient rehab, no complaint and recommended by Neurosurgery for discharge, no nausea, vomit or diarrhea, multiple ecchymosis on both arms. Remove central line and Verma cath for transfer. Status post consult by oil program compliance specialist states she had more like respiratory arrest NSTEMI, Atrial fibrillation post arrest resolved, LBBB, recommended Low dose beta blockers, Baby aspirin and continue Statins. follow as outpatient by Doctor Roosevelt Dominguez. -VDRF improved. - Hypertension controlled. - Hyperlipidemia - Continue Pravastatin 20mg Qday, Lisinopril 20mg Qday, HCTZ 25mg Qday, Atenolol 50mg Qday. Full code. SCDs. Discharge Planning Transfer to [facility] at this time. Jacky Amezcua MD Oct 19, 2016 11:14
--- NOTE | 2016-10-19 11:21 | HHI.DS ---
Discharge Summary Admission Date Oct 15, 2016 at 09:45 Discharge Date: Oct 19, 2016 Admitting Diagnosis intractable pain; T12 subacute compression fx (1) T12 compression fracture ICD Code: S22.080A Diagnosis: Principal (2) Intractable back pain ICD Code: M54.9 Diagnosis: Principal (3) Cardiac arrest ICD Code: I46.9 Diagnosis: Principal Procedures 10/14/2016 T12 Kyphoplasty Brief History - From Admission 89 y/o female with a history of HTN, HLD and arthritis presented to the ED with complaints of back pain for the last 3 days. She states the pain is throbbing, 7 /10, in the middle of her back, worse when laying in bed or turning in bed. She states during the day when she walks the pain does ease up. Today she states the pain made it difficult to walk. No associated numbness in her lower extremities. She denies any trauma, or fall. She does take swing classes 3 days a week, but doesn't remember twisting wrong. She denies any chest pain, sob, fever, chills, rash, headaches or dizziness. CBC/BMP: 10/18/16 0400 10/18/16 0400 Significant Findings Laboratory Tests Test 10/16/16 10/17/16 10/17/16 10/18/16 12:08 04:16 04:45 04:00 Estimat Glomerular Filtration 80 ML/MIN (>89) 87 ML/MIN (>89) 81 ML/MIN (>89) Rate Random Glucose 167 MG/DL 155 MG/DL (74-106) (74-106) Calcium Level 8.4 MG/DL 8.2 MG/DL (8.5-10.1) (8.5-10.1) Blood Gas Base Excess 2.7 mmol/L (-2-2) Arterial Blood pH 7.47 (7.380-7.420) Arterial Blood Partial 36 mmHg (38-42) Pressure CO2 Arterial Blood Partial 134 mmHg Pressure O2 (61-120) Blood Gas Hemoglobin 10.9 G/DL (12.0-16.0) Potassium Level 3.4 MEQ/L (3.5-5.1) Red Blood Count 3.56 MIL/MM3 (4.00-5.30) Hemoglobin 10.0 GM/DL (11.6-15.3) Hematocrit 29.6 % (35.0-46.0) Carbon Dioxide Level 32.3 MEQ/L (21.0-32.0) Imaging Last Impressions Chest X-Ray 10/17/16 0400 Signed Impressions: Service Date/Time: Monday, October 17, 2016 03:26 - CONCLUSION: No significant change trace right and small left pleural effusions with mild bibasilar atelectasis. Lines and tubes as above. Nasogastric tube now courses into the stomach. Sumit Linn MD Thoracic Spine X-Ray 10/14/16 0000 Signed Impressions: Service Date/Time: Friday, October 14, 2016 15:50 - CONCLUSION: 1. Postoperative T12 kyphoplasty. Nicholas Yañez MD Thoracic Spine MRI 10/13/16 0000 Signed Impressions: Service Date/Time: Thursday, October 13, 2016 15:21 - CONCLUSION: T12 fracture, mainly horizontal upper vertebral body cleft Sumit Eddy MD Thoracic Spine CT 10/12/16 0000 Signed Impressions: Service Date/Time: Wednesday, October 12, 2016 18:17 - CONCLUSION: 1. Compression fracture through superior aspect of T12 without significant loss of vertebral body height. Fracture is probably subacute with some resorption at the fracture line. Prominent osteophyte at this level posteriorly results in a mild to moderate AP canal stenosis. No other fractures. Nicholas Yañez MD Lumbar Spine CT 10/12/16 0000 Signed Impressions: Service Date/Time: Wednesday, October 12, 2016 18:17 - CONCLUSION: 1. T12 fracture. See thoracic spine CT report. No lumbar spine fracture. 2. 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 Nicholas Yañez MD PE at Discharge GENERAL: Alert, Oriented x 3, NAD. SKIN: Warm and dry. HEAD: Normocephalic. EYES: No scleral icterus. No injection or drainage. NECK: Supple, trachea midline. No JVD or lymphadenopathy. CARDIOVASCULAR: Regular rate and rhythm, Systolic Murmur 3/6 in intensity, RESPIRATORY: Breath sounds equal bilaterally. No accessory muscle use. GASTROINTESTINAL: Abdomen soft, non-tender, nondistended. MUSCULOSKELETAL: No cyanosis, or edema. Ecchymosis on both arms BACK: Nontender without obvious deformity. No CVA tenderness. Hospital Course This is a pleasant 89 y/o Female with status post T12 Kyphoplasty for intractable pain due to compression fracture status post Cardiac Arrest status post resuscitation, Intubated, was placed in Intensive Care Unit, with diagnosis of Cardiopulmonary Arrest, NC, Respiratory failure, Lactic Acidosis and Status post Kyphoplasty T12, was on Pressors now recommended for transfer to the Floor by Neurosurgery. her Atrial Fibrillation now Sinus rhythm. recommended to get TLCO when out of bed. 10/19: Seen in her bedroom in the presence of nurse Miss Falcon also CIR specialist present ready for transfer to Inpatient rehab, no complaint and recommended by Neurosurgery for discharge, no nausea, vomit or diarrhea, multiple ecchymosis on both arms. Remove central line and Verma cath for transfer. Status post consult by psych specialist states she had more like respiratory arrest NSTEMI, Atrial fibrillation post arrest resolved, LBBB, recommended Low dose beta blockers, Baby aspirin and continue Statins. follow as outpatient by Doctor Roosevelt Dominguez. Assessment and Plan Ms. Suárez was seen this morning around 10AM. This is a pleasant 89 year old female who presented to the ED due to worsening low back pain that started about 3 days prior to this admission. Imaging studies indicated T12 compression fracture. now status post Cardiac Arrest. - T12 Compression fracture - Neurosurgery performed kyphoplasty on 10/14/2016. - On short course of calcitonin nasal spray. - Continue [place] and Morphine PRN for pain. -Cardiac Arrest status post ACLS improved condition, probable ischemic but she had ACLS . 10/19: Seen in her bedroom in the presence of nurse Miss Falcon also CIR specialist present ready for transfer to Inpatient rehab, no complaint and recommended by Neurosurgery for discharge, no nausea, vomit or diarrhea, multiple ecchymosis on both arms. Remove central line and Verma cath for transfer. Status post consult by psych specialist states she had more like respiratory arrest NSTEMI, Atrial fibrillation post arrest resolved, LBBB, recommended Low dose beta blockers, Baby aspirin and continue Statins. follow as outpatient by Doctor Roosevelt Dominguez. -VDRF improved. - Hypertension controlled. - Hyperlipidemia - Continue Pravastatin 20mg Qday, Lisinopril 20mg Qday, HCTZ 25mg Qday, Atenolol 50mg Qday. Full code. SCDs. Discharge Planning Transfer to [facility] at this time. Pt Condition on Discharge: Good Discharge Disposition: Rehab Inpatient Discharge Time: > 30 minutes Discharge Instructions DIET: Follow Instructions for: Heart Healthy Diet Activities you can perform: See Additionl Instruction Other Activity Instructions: Follow Neurosurgery and PT/OT recommendations in Rehab Jacky Amezcua MD Oct 19, 2016 11:21
--- NOTE | 2016-10-19 12:13 | HHI.NSPN ---
(Julio Dunn) History Chief Complaint: Sore neck from laying in bed. (Julio Dunn) Interval History Ms. Suárez is a 89 y/o female underwent T12 Kyphoplasty yesterday afternoon 10/14: found to be in distress in this am with food in her mouth, then worsened with cardiopulmonary arrest, Code Blue initiated and patient with return of circulation after one round of ACLS 10/16: intubated but opens eyes, follows simple commands. currently in A. Fib - plan to cardiovert today 10/17: extubated, doing well on supplemental oxygen. following commands. 10/18: The patient is doing well when seen this morning. She has finished her breakfast. She had no complaints when seen. 10/19: This morning she is doing good and her only complaint is that her neck is sore from laying in bed. She states that she had a bowel movement yesterday. About an hour before being seen the patient reports that the Verma catheter was removed. She states she does not feel any urge to void. She was doing well in the [facility] yesterday and was transferred to a regular med/surg floor. (Julio Dunn) System Review Comments Constitutional: Patient denies any fever or chills. HEENT: Patient denies any difficulty swallowing. Neck: Patient states her neck is sore from laying in bed. Respiratory: Patient denies any shortness of breath or productive cough. Cardiovascular: Patient denies any chest pain, palpitations or irregular heartbeat. Gastrointestinal: Patient denies any abdominal pain, nausea, vomiting or incontinence of stool. Genitourinary: Patient states the Vemra catheter was removed an hour before being seen. She has no urge to void at present. Musculoskeletal: Patient denies any pain or weakness to the extremities. She also denies any back pain. Neurologic: Patient denies any headache, dizziness, numbness or tingling. ( Julio Dunn) Exam Results Vital Signs Date Time Temp Pulse Resp B/P Pulse Ox O2 Delivery O2 Flow Rate FiO2 10/19/16 07:00 95.4 71 17 136/65 100 10/19/16 06:45 Nasal Cannula 1.00 10/17/16 20:07 21 Intake and Output 10/18/16 10/18/16 10/18/16 07:59 15:59 23:59 Intake Total 240 ml 480 ml 240 ml Output Total 750 ml 750 ml Balance -510 ml -270 ml 240 ml (Julio Dunn) Physical Examination General: The patient is awake & alert, she readily interacts & smiles, normal affect, no apparent distress. HEENT: Normocephalic, atraumatic. PERRLA, EOMI. Neck: Supple, active ROM w/o pain, no JVD, trachea midline. Respiratory: CTAB w/o W/R/R, equal excursion, nonlaboured, on RA. Cardiovascular: S1S2 w/RRR w/grade III/ murmur, radial & pedal pulses 2+ bilaterally, cap refill < 2 sec, no pedal edema. Gastrointestinal: Abdomen soft, nontender, positive bowel sounds. Skin: Warm, dry & intact, multiple upper extremity ecchymotic areas of indeterminate ages, thoracic spine surgical incisions well approximated w/ intact steri-strips, no drainage, erythema or streaking noted. Musculoskeletal: JONES w/o difficulty, no evident deformity or clubbing. Neurologic: AAOx2 (person & place but not time). Speech clear and appropriate. Follows simple commands. Sensation intact to light touch to all extremities. Strength BLE 4+ to 5/5 to all major flexion & extension muscle groups. Strength BUE 4 to 4+/5 to all major flexion & extension muscle groups. (Julio Dunn) Medical Decision Making Impression and Plan Impression: 89 y/o female s/p T12 Kyphoplasty 10/14/16 s/p cardiopulmonary arrest 10/15/16 with returns of circulation following one round of ACLS acute A. Fib with RVR, converted back to NSR Patient continues to do well, no back pain, minimal weakness BUE Plan: Neuro checks. Mobilise patient w/assistance. TLSO when out of bed. PT & OT eval & tx. (Julio Dunn) Attending Statement The exam, history, and the medical decision-making described in the above note were completed with the assistance of the mid-level provider. I reviewed and agree with the findings presented. I attest that I had a [id number] encounter with the patient on the same day, and personally performed and documented my assessment and findings in the medical record. Remains awake and alert on my examination today. Respirations clear and regular No extremity edema Speech clear and appropriate Sensation intact by touch lower extremities strength normal major flexion and extension groups lower extremities Stable neurologic exam postoperatively. continue out of bed with physical therapy, brace (Elías Stephens MD) Julio Dunn Oct 19, 2016 12:13 Elías Stephens MD Oct 19, 2016 12:42
== END 2016-10-19 12:55 | DRG 981 ==
LOC: PHED 18:01 → PHEDA 21:33 → NEPGCP 10-13 02:26 → N06B 10-14 13:25 → N05B 10-14 17:38 → OBSVTOIN 10-15 09:45 → N03A 10-15 09:49 → N06B 10-18 15:57
PROVIDERS: ADMIT Internal Medicine; ATTEND Internal Medicine
PROC: 0PS43ZZ Reposition Thoracic Vertebra, Percutaneous Approach (ICD-10-PCS; 2016-10-14)
PROC: 0PU43JZ Supplement Thoracic Vertebra with Synthetic Substitute, Percutaneous Approach (ICD-10-PCS; principal; 2016-10-14 14:30)
PROC: 03HY32Z Insertion of Monitoring Device into Upper Artery, Percutaneous Approach (ICD-10-PCS; 2016-10-15)
PROC: 5A12012 Performance of Cardiac Output, Single, Manual (ICD-10-PCS; 2016-10-15)
PROC: 0BH17EZ Insertion of Endotracheal Airway into Trachea, Via Natural or Artificial Opening (ICD-10-PCS; 2016-10-15)
PROC: 5A1945Z Respiratory Ventilation, 24-96 Consecutive Hours (ICD-10-PCS; 2016-10-15)
PROC: 02HV33Z Insertion of Infusion Device into Superior Vena Cava, Percutaneous Approach (ICD-10-PCS; 2016-10-15)
DX: I21.4 Non-ST elevation (NSTEMI) myocardial infarction (principal); J96.90 Respiratory failure, unspecified, unspecified whether with hypoxia or hypercapnia; E87.4 Mixed disorder of acid-base balance; M48.54XA Collapsed vertebra, not elsewhere classified, thoracic region, initial encounter for fracture; M48.04 Spinal stenosis, thoracic region; I10 Essential (primary) hypertension; E78.5 Hyperlipidemia, unspecified; K59.00 Constipation, unspecified; I48.91 Unspecified atrial fibrillation; I08.1 Rheumatic disorders of both mitral and tricuspid valves; I44.7 Left bundle-branch block, unspecified; M48.06 Spinal stenosis, lumbar region; M19.90 Unspecified osteoarthritis, unspecified site; Z88.0 Allergy status to penicillin
CPT/HCPCS: 31500; 71010; 72070; 72128; 72131; 72146; 80048; 80053; 81001; 82550; 82552; 82805; 83605; 83735; 84100; 84484; 85025; 85027; 85610; 85730; 87040; 92950; 93005; 93306; 94002; 94003; 94150; 96361; 96365; 96374; 96375; 96376; C9113; G0378; G8987-GP; G8988-GP; J0171; J0282; J0461; J0690; J2250; J2270; J2405; J3010; J3370; J3480; J7050; J7060; L0200; L0484